=== PATIENT | female | born 1945 | race Caucasian/White ===

== ENCOUNTER 2017-09-20 06:39 | Inpatient (IN) | payer MEDICARE, SELFPAY ==
[2017-09-20] VITALS (8 sets, daily range): BP systolic 121–143; BP diastolic 55–82; PULSE 82–102; RESP 16; TEMP 36.6–37.7; O2SAT 94–99; BMI 23.7; BMI 22.8
--- NOTE | 2017-09-20 07:00 | ED.VISSUMM ---
- ER Visit Summary Date of Service: 09/20/17 Chief Complaint: Right leg pain History of Present Illness: The patient is a 71 F with a couple days of swelling and redness and warmth and pain in her right leg. Started posteriorly. Is really not hurting when she rests, but is worse when she walks on it. No recent long travel or immobilization/hospitalization. No known injury to her right leg. Sore in her right groin, but no fevers or other systemic symptoms. Physical Examination: Lacy appearing erythema to the right lower extremity, patchy, borders are not well circumscribed. It is warm compared with contralateral side and non-erythematous areas, and tender to palpation. There is no subcutaneous emphysema. There is mild swelling. There is no pitting edema. There is no lymphangitis. She does have some tender inguinal lymphadenopathy that extends into the medial proximal thigh. There are no abnormal skin changes here. There are no palpable cords. She is neurovascularly intact distally. At the area where she states it started, there is a small wound with a scab, there is no discharge or palpable abscess anywhere. Test Results: White blood count 21 with a strong leftward shift. No bandemia. Acute kidney injury compared with 1 month ago and hyperglycemia at 376. Emergency Department Course and Treatment: Patient states she has no idea how she obtained the small wound that appears to be healing on the posterior right lower extremity, but she agrees that that is where everything started, so that in addition to her hyperglycemia is likely the reason for the infection. I do not think this is a DVT. She states her blood sugars have been running around 200, plus or minus. She states there is a lot of fluctuation in her blood sugars. She is compliant with her medication. She is nontoxic, and not septic, but her labs are concerning. Given IV Unasyn [address] Patterson, prefers admission at this time. Discussed with hospitalist. Disposition: Admit Impression: Right lower extremity cellulitis Acute kidney injury Hyperglycemia due to type 2 diabetes mellitus This note was generated with [employer] dictation software. It may contain incorrect words, spelling, and punctuation that were not noted in review of the chart prior to signing ED Disposition - Plan for ED Patient: Disposition: Acute Care Hospital [facility] Chief Complaint: Cellulitis Prescriptions: Cephalexin 500 mg PO 4X/DAY #40 cap
[2017-09-20 07:39] LABS: Anion Gap 17 (5-15); BUN 30 mg/dL (7-18); BUN/Creat Ratio 26.1 RATIO (10-20); Calcium,Total 9.3 mg/dL (8.5-10.1); Chloride 97 mmol/L (98-107); Creatinine, Serum 1.15 mg/dL (0.55-1.02); EST Glomerular Filtration Rate 49 mL/min (>60); Est Glom Filt Rate - Afr Amer 59 mL/min (>60); Estimated Creatinine Clearance 36.04 ml/min; Glucose 376 mg/dL (74-106); Potassium 3.5 mmol/L (3.5-5.1); Sodium Level 134 mmol/L (136-145)
[2017-09-20 07:41] LABS: Absolute Lymphocyte Count 0.55 X10^3/ul (0.83-4.51); Basophil# 0.01 X10^3/uL; Hematocrit 37.8 % (37-47); Hemoglobin 12.6 g/dl (12.0-15.0); Lymphocyte # 0.55 X10^3/ul (4.0); Lymphocyte % 2.6 % (19-41); Mean Corp Hgb Conc 33.3 g/gl (32-36); Mean Corpuscular Hgb 28.8 pg (27.0-32.0); Mean Corpuscular Volume 86.5 fL (81-99); Mean Platelet Vol. 10.9 fl (6.2-12.0); Monocyte# 1.63 X10^3/uL; Monocyte% 7.7 % (0-10); Neutrophil # 19.03 X10^3/uL (2.7-7.7); Neutrophil % 89.4 % (47-70); Platelet Count 229 K/mm3 (150-450); RBC Distribution Width CV 13.6 % (11.6-14.6); RBC Distribution Width SD 42.8 fl (35.1-43.9); Red Blood Count 4.37 M/mm3 (4.2-5.4); White Blood Count 21.3 K/mm3 (4.4-11.0)
[2017-09-20 07:43] LABS: Differential Indicated SCAN CRITERIA MET; POSITIVE COUNT NO; POSITIVE DIFFERENTIAL YES; POSITIVE MORPHOLOGY NO
[2017-09-20 08:28] LABS: Differential Comment SCANNED
--- NOTE | 2017-09-20 09:42 | HP.PCM_ITS ---
Problem List (1) Cellulitis of right leg Status: Acute (2) Diabetes mellitus type 2 in nonobese Status: Chronic (3) Dyslipidemia Status: Chronic (4) Diabetic neuropathy Status: Chronic (5) Hypertension Status: Chronic History of Present Illness Date of Admission: 09/20/17 Chief Complaint: Right leg pain and redness The patient is a 71 year old F with history of diabetes mellitus type 2 on multiple antidiabetic medications including long-acting insulin, Regular Insulin , Victoza, hypertension came to ER for right leg redness, pain and mild swelling consistent with right leg cellulitis for about 3 days. Patient denies fever, chills, sharp, vomiting headache or other systemic symptoms. It is started with a small lesion on the back of right leg, calf which she is grasped and now scabbed without skin opening/wound and then it spread to her whole right lower leg from knee to ankle. She denies any history of foot ulcer, osteomyelitis. She is on gabapentin possible diabetic neuropathy. [] In ED, she has leukocytosis with left shift, ESR 77 and MRSA negative. Glucose in BMP 376, A1c 8.7. Past Medical History Past Medical History (Chronic Problems): Chronic Problems Diabetes mellitus type 2 in nonobese (Chronic) Dyslipidemia (Chronic) Diabetic neuropathy (Chronic) Hypertension (Chronic) Allergies No Known Allergies Allergy (Verified 09/20/17 06:40) Home Medications: Ambulatory Orders Medication Instructions Recorded Amlodipine Besylate/Benazepril 1 tab PO BID 09/20/17 [Amlodipine-Benazepril 5-20 mg] Bisoprolol Fumarate/Hctz 1 tab PO BID 09/20/17 [Bisoprolol-Hctz 2.5-6.25 mg Tb] Empagliflozin [Jardiance] 25 mg PO DAILY 09/20/17 Folic Acid 0.4 mg PO DAILY@0800 09/20/17 Gabapentin [Neurontin] 600 mg PO QHS 09/20/17 Insulin Degludec [Tresiba 80 units SQ DAILY 09/20/17 Flextouch U-200] Insulin Regular, Human [Humulin R 75 unit SQ TIDCM 09/20/17 U-500 Kwikpen] Liraglutide [Victoza] 1.8 units SQ DAILY 09/20/17 Magnesium Oxide [Mag-Ox 400] 1 tab PO DAILY 09/20/17 Pioglitazone [Actos] 45 mg PO DAILY 09/20/17 Rosuvastatin Calcium 20 mg PO DAILY 09/20/17 Spironolactone [Aldactone] 50 mg PO DAILY 09/20/17 Smoking Status: Never smoker Review of Systems Constitutional: Denies: Chills, Fever, Weight Change HEENT: Denies: Head Aches, Sinus Congestion, Sinus Drainage Cardiovascular: Denies: Chest Pain, Palpitations Respiratory: Denies: Cough, Shortness of breath at rest, Sputum production Gastrointestinal: Denies: Abdominal Pain, Nausea, Vomiting Genitourinary: Denies: Dysuria Musculoskeletal: Denies: Joint Pain, Joint Tenderness Skin: Reports: Rash. Denies: Wounds Neurological: Denies: Numbness, Tingling, Focal weakness Psychiatric: Denies: Anxiety, Depression, Homicidal Ideations, Suicidal Ideations Hematologic/ Lymphatic: Denies: Easy Bruising, Easy Bleeding VTE Information - Inpt Only VTE Present on Admission: No VTE Mechan Device Prophylaxis: SCD's VTE Pharm Prophylaxis ordered?: Yes Patient Problems: Active and Suspected Problems Cellulitis of right leg (Acute) - Physical Exam General: Alert, Oriented x3, Cooperative HEENT: Atraumatic, PERRLA, EOMI, Normocephalic Oral: Dry Mucosa Neck: Supple, No JVD, Negative Carotid Bruits Lungs: Clear to auscultation, Normal air movement, No rhonchi, No wheeze Cardiovascular: Regular rate, Regular Rhythm, Normal S1, Normal S2, Murmur - Systolic murmur present over left lower sternal border Abdomen: Bowel Sounds Present, Soft, Non Tender, Non-Distended Extremities: Capillary Refill Less than 3 Seconds, Edema - Mild edema of right lower leg Skin: No breakdown, Rash Present - Maculopapular reddish rash present over right lower leg from right knee to ankle with a small scab, grayish in color at the right calf Musculoskeletal: No Tenderness to Palpation of Joints or Extremities Neurological: Cranial nerves II-XII grossly intact Psych/Mental Status: Normal Affect, Appropriate Vital Signs Temp Pulse Resp BP Pulse Ox 97.8 F 102 H 16 134/67 H 96 09/20/17 06:41 09/20/17 06:41 09/20/17 06:41 09/20/17 06:41 09/20/17 06:41 Oxygen Delivery Method Room Air Weight: 133 lb 13.129 oz Body Mass Index (BMI) 23.7 Laboratory Tests Past 24 Hrs 09/20/17 09/20/17 07:17 07:17 WBC 21.3 H RBC 4.37 Hgb 12.6 Hct 37.8 MCV 86.5 MCH 28.8 MCHC 33.3 RDW 13.6 RDW Differential 42.8 Plt Count 229 MPV 10.9 Immature Gran % (Auto) 0.300 Neut % (Auto) 89.4 H Lymph % (Auto) 2.6 L Winn % (Auto) 7.7 Eos % (Auto) 0.0 Baso % (Auto) 0.0 Absolute Neuts (auto) 19.0 H Absolute Lymphs (auto) 0.55 L Total Counted Not Reportable Differential Comment SCANNED Sodium 134 L Potassium 3.5 Chloride 97 L Carbon Dioxide 20.0 L Anion Gap 17 H BUN 30 H Creatinine 1.15 H Estim Creat Clear Calc 36.04 Est GFR (MDRD) Af Amer 59 L Est GFR (MDRD) Non-Af 49 L BUN/Creatinine Ratio 26.1 H Glucose 376 H Calcium 9.3 Assessment/Plan Active and Suspected Problems Cellulitis of right leg (Acute) The patient is a 71 year old F with history of diabetes mellitus type 2 on multiple antidiabetic medications including long-acting insulin, Regular Insulin , Victoza, hypertension came to ER for right leg redness, pain and mild swelling consistent with right leg cellulitis for about 3 days. Patient denies fever, chills, sharp, vomiting headache or other systemic symptoms. It is started with a small lesion on the back of right leg, calf which she is grasped and now scabbed without skin opening/wound and then it spread to her whole right lower leg from knee to ankle. She denies any history of foot ulcer, osteomyelitis. She is on gabapentin possible diabetic neuropathy. [] In ED, she has leukocytosis with left shift, ESR 77 and MRSA negative. Glucose in BMP 376, A1c 8.7. 1. SIRS 1/4 (leukocytosis) WITH Right lower leg cellulitis most probably from folliculitis/scratching, possible Streptococcus: Patient is being admitted to the regular floor. Started on IV Unasyn in the ER and he changed to cefazolin. MRSA nasal screen is negative. IV fluid normal saline. Blood culture is ordered. 2. Diabetes mellitus type 2 complicated with diabetic neuropathy with hyperglycemia, uncontrolled: As mentioned above her blood sugar is uncontrolled. Continue Accu-Chek before meals and at bedtime and cover with NovoLog sliding scale. She is on pressure about 80 units subcui daily and 75 units regular insulin 3 times daily. 3. Other comorbidities include dyslipidemia, hypertension and possible chronic leg edema: Her home medications including rosuvastatin, spironolactone, amlodipine, benazepril and HCTZ resumed. DVT prophylaxis: Moderate risk: On Lovenox 40 mg subcu daily and bilateral SCDs. This note was generated with [employer] dictation software. Every effort was made to ensure accuracy, however computerized public health policy analyst mistakes may persist. Code Visit Inpatient E&M: 20274 Init Hosp L3
--- NOTE | 2017-09-20 11:24 | VDLE_ITS ---
Reason For Study: LEG SWELLING RIGHT LEFT GSV is normal. GSV is normal. CFV is compressible, spontaneous, phasic, CFV is compressible, spontaneous, phasic, competent and demonstrates normal competent, and demonstrates normal augmentation. augmentation. FV is compressible, spontaneous, phasic, FV is compressible, spontaneous, phasic, competent and demonstrates normal competent and demonstrates normal augmentation. augmentation. POP V is compressible, spontaneous, phasic, POP V is compressible, spontaneous, phasic, competent and demonstrates normal competent and demonstrates normal augmentation. augmentation. T/P Trunk is compressible. T/P Trunk is compressible. PTV is compressible. PTV is compressible. RT PerV is compressible. LT PerV is compressible. Procedure Exam performed in department. A preliminary report was called and/or faxed to [facility] nurse. Interpretation Summary No evidence for acute deep venous thrombosis bilateral lower extremities with patent and compressible bilateral great saphenous veins. Ordering Physician: Robin Mcdowell Referring Physician: Godfrey Holley MD Performed By: Faby Hamm RVT
[2017-09-20 11:52] LABS: Erythrocyte Sedimentation Rate 77 mm/hr (0-30)
[2017-09-20] MEDS: 0.9% Normal Saline 1,000 ML 100 ML IV ×2 (12:01→23:54)
[2017-09-20 12:06] LABS: Bedside Glucose 223 mg/dL (70-110)
[2017-09-20 12:09] LABS: Hemoglobin A1c 8.7 % (4.2-6.3)
[2017-09-20] MEDS: Enoxaparin 30 MG/0.3 ML Syringe SC (12:31)
[2017-09-20] MEDS: Polyethylene Glycol 3350 17 GM PACKET PO (12:35)
[2017-09-20] MEDS: Spironolactone 50 MG Tablet PO (12:35)
[2017-09-20] MEDS: Acetaminophen 325 MG Tablet 650 MG PO (12:39)
[2017-09-20 13:17] LABS: M R Staph aureus DNA By PCR Negative (Negative); Probe Check PASS; Specimen Processing Control PASS; Staph aureus DNA By PCR NEGATIVE (Negative)
[2017-09-20] MEDS: Cefazolin 1 GM/50 ML BAG IV ×2 (14:45→22:21)
[2017-09-20 16:21] LABS: Bedside Glucose 305 mg/dL (70-110)
[2017-09-20] MEDS: Atorvastatin Calcium 40 MG Tablet PO (22:21)
[2017-09-20] MEDS: Gabapentin 300 MG Capsule PO (22:21)
[2017-09-20 22:25] LABS: Bedside Glucose 88 mg/dL (70-110)
[2017-09-21] VITALS (11 sets, daily range): BP systolic 120–146; BP diastolic 60–88; PULSE 74–92; RESP 16; TEMP 36.3–37.5; O2SAT 94–99
[2017-09-21 03:16] LABS: Bedside Glucose 95 mg/dL (70-110)
[2017-09-21] MEDS: Cefazolin 1 GM/50 ML BAG IV ×3 (06:17→21:45)
[2017-09-21] MEDS: oxyCODONE 5 MG Tablet PO ×2 (06:17→13:54)
[2017-09-21] MEDS: Enoxaparin 30 MG/0.3 ML Syringe SC (06:17)
[2017-09-21 06:19] LABS: Absolute Lymphocyte Count 1.15 X10^3/ul (0.83-4.51); Absolute Neutrophil Count 15.9 X10^3/uL (2.0-7.7); Basophil# 0.02 X10^3/uL; Basophil% 0.1 % (0-1); Eosinophil# 0.02 X10^3/uL; Eosinophils% 0.1 % (0-5); Hematocrit 33.9 % (37-47); Hemoglobin 11.4 g/dl (12.0-15.0); Lymphocyte # 1.15 X10^3/ul (4.0); Mean Corp Hgb Conc 33.6 g/gl (32-36); Mean Corpuscular Hgb 29.1 pg (27.0-32.0); Mean Corpuscular Volume 86.5 fL (81-99); Mean Platelet Vol. 10.8 fl (6.2-12.0); Monocyte# 1.77 X10^3/uL; Monocyte% 9.3 % (0-10); Neutrophil # 15.93 X10^3/uL (2.7-7.7); Neutrophil % 83.9 % (47-70); Platelet Count 255 K/mm3 (150-450); RBC Distribution Width CV 13.5 % (11.6-14.6); RBC Distribution Width SD 41.3 fl (35.1-43.9); Red Blood Count 3.92 M/mm3 (4.2-5.4)
[2017-09-21 06:28] LABS: Differential Indicated SCAN CRITERIA MET; POSITIVE COUNT NO; POSITIVE DIFFERENTIAL YES; POSITIVE MORPHOLOGY NO
[2017-09-21 06:33] LABS: Anion Gap 10 (5-15); BUN 28 mg/dL (7-18); BUN/Creat Ratio 45.5 RATIO (10-20); Calcium,Total 8.5 mg/dL (8.5-10.1); Chloride 104 mmol/L (98-107); Creatinine, Serum 0.62 mg/dL (0.55-1.02); EST Glomerular Filtration Rate 101 mL/min (>60); Est Glom Filt Rate - Afr Amer 122 mL/min (>60); Estimated Creatinine Clearance 41.45 ml/min; Glucose 111 mg/dL (74-106); Potassium 2.9 mmol/L (3.5-5.1); Sodium Level 138 mmol/L (136-145)
[2017-09-21 06:47] LABS: Differential Comment SCANNED
[2017-09-21] MEDS: Folic Acid 1 MG Tablet PO (08:54)
[2017-09-21] MEDS: HYDROCHLOROTHIAZIDE 12.5 MG TABLET 6.25 MG PO (08:54)
[2017-09-21] MEDS: Spironolactone 50 MG Tablet PO (08:54)
[2017-09-21] MEDS: Empagliflozin 25 MG Tablet PO (08:55)
[2017-09-21 08:56] LABS: Bedside Glucose 132 mg/dL (70-110)
[2017-09-21] MEDS: Polyethylene Glycol 3350 17 GM PACKET PO (08:56)
[2017-09-21] MEDS: amLODIPine 5 MG Tablet PO (08:56)
[2017-09-21] MEDS: Magnesium Oxide 400 MG Tablet PO (08:56)
[2017-09-21] MEDS: Bisoprolol Fumarate 5 MG Tablet 2.5 MG PO (08:56)
[2017-09-21] MEDS: Lisinopril 20 MG Tablet PO (08:57)
[2017-09-21] MEDS: 0.9% Normal Saline 1,000 ML 100 ML IV ×2 (10:16→21:07)
[2017-09-21 11:26] LABS: Bedside Glucose 91 mg/dL (70-110)
[2017-09-21 13:21] LABS: Magnesium 2.2 mg/dL (1.6-2.6); Potassium 3.5 mmol/L (3.5-5.1)
[2017-09-21] MEDS: Dextrose 50%-Water 25 GM/50 ML DISP.SYRIN IV (16:18)
[2017-09-21 16:31] LABS: Bedside Glucose 163 mg/dL (70-110)
[2017-09-21 16:57] LABS: Glucose 48 mg/dL (74-106)
--- NOTE | 2017-09-21 16:57 | PCM.PN.HOSP ---
Patient Problems: Active and Suspected Problems Cellulitis of right leg (Acute) Subjective: Patient has hypoglycemia with blood sugar dropped to 40 mg percent and D5 50%, 25 mL ordered. Blood sugar is 163 mg percent. Right lower leg swelling and pain has improved. Vitals/I&O's: Vital Signs Temp Pulse Resp BP Pulse Ox 97.5 F L 80 16 146/80 H 99 09/21/17 13:56 09/21/17 15:53 09/21/17 13:56 09/21/17 13:56 09/21/17 13:56 Oxygen Delivery Method Room Air Weight: 129 lb 3.054 oz Body Mass Index (BMI) 22.8 Intake and Output for Last 24 Hours 09/19/17 09/20/17 09/21/17 23:59 23:59 23:59 Intake Total 1523 / 1523 2247 / 2247 Output Total 1000 / 1000 1500 / 1500 Balance 523 / 523 747 / 747 General: Alert, Oriented x3, Cooperative HEENT: Atraumatic, PERRLA, EOMI, Normocephalic Neck: Supple, No JVD, Negative Carotid Bruits Lungs: Clear to auscultation, No rhonchi, No wheeze, No rales, Diminished Cardiovascular: Regular rate, Regular Rhythm, Normal S1, Normal S2, Murmur Abdomen: Bowel Sounds Present, Soft, Non Tender Extremities: No edema, Capillary Refill Less than 3 Seconds Skin: Rash Present - Maculopapular reddish rash present over right lower leg from right knee to ankle with a small scab, grayish in color at the right calf-improving Musculoskeletal: No Tenderness to Palpation of Joints or Extremities, Arthritic Changes Neurological: Cranial nerves II-XII grossly intact Psych/Mental Status: Normal Affect, Appropriate Microbiology Past 72 Hours 09/20/17 11:58 Wound - Leg, Right Gram Stain - Final 09/20/17 11:58 Wound - Leg, Right Wound Culture - Preliminary Streptococcus group A Laboratory Results 09/20/17 22:19: POC Glucose 88 09/21/17 03:09: POC Glucose 95 09/21/17 05:11: WBC 19.0 H, RBC 3.92 L, Hgb 11.4 L, Hct 33.9 L, MCV 86.5, MCH 29.1, MCHC 33.6, RDW 13.5, RDW Differential 41.3, Plt Count 255, MPV 10.8, Immature Gran % (Auto) 0.600, Neut % (Auto) 83.9 H, Lymph % (Auto) 6.0 L, Lewis % (Auto) 9.3, Eos % (Auto) 0.1, Baso % (Auto) 0.1, Absolute Neuts (auto) 15.9 H, Absolute Lymphs (auto) 1.15, Total Counted Not Reportable, Differential Comment SCANNED, Diff Path Review December foll 09/21/17 05:11: Sodium 138, Potassium 2.9 L, Chloride 104, Carbon Dioxide 24.0, Anion Gap 10, BUN 28 H, Creatinine 0.62, Estim Creat Clear Calc 41.45, Est GFR (MDRD) Af Amer 122, Est GFR (MDRD) Non-Af 101, BUN/Creatinine Ratio 45.5 H, Glucose 111 H, Calcium 8.5 09/21/17 07:36: POC Glucose 132 H 09/21/17 11:13: POC Glucose 91 09/21/17 13:00: Potassium 3.5, Magnesium 2.2 09/21/17 16:17: Glucose Pending 09/21/17 16:22: POC Glucose 163 H Current Medications Acetaminophen (Tylenol) 650 mg PO Q6H PRN PRN PRN Reason: Mild Pain (scale 0-3)/T>100.7 Last Admin: 09/20/17 12:39 Dose: 650 mg Al Hydroxide/Mg Hydroxide (Mylanta Ii) 30 ml PO Q6H PRN PRN PRN Reason: Gastric Burning Amlodipine Besylate (Norvasc) 5 mg PO DAILY [facility] Last Admin: 09/21/17 08:56 Dose: 5 mg Atorvastatin Calcium (Lipitor) 40 mg PO QHS [facility] Last Admin: 09/20/17 22:21 Dose: 40 mg Bisacodyl (Dulcolax) 10 mg RECTAL DAILY PRN PRN PRN Reason: Constipation Bisoprolol Fumarate (Zebeta) 2.5 mg PO DAILY [facility] Last Admin: 09/21/17 08:56 Dose: 2.5 mg Dextrose (D50w Syringe) 0 gm IV X1 PRN; Protocol PRN Reason: Hypoglycemia Last Admin: 09/21/17 16:18 Dose: 25 gm Docusate Sodium (Colace) 200 mg PO BID PRN PRN PRN Reason: Constipation Enoxaparin Sodium (Lovenox) 30 mg SC DAILY@0600 [facility] Last Admin: 09/21/17 06:17 Dose: 30 mg Folic Acid (Folic Acid) 1 mg PO DAILY@0800 [facility] Last Admin: 09/21/17 08:54 Dose: 1 mg Gabapentin (Neurontin) 300 mg PO QHS [facility] Last Admin: 09/20/17 22:21 Dose: 300 mg Glucagon () 1 mg IM .X1 PRN PRN Reason: Hypoglycemia Hydrochlorothiazide (Hydrochlorothiazide) 6.25 mg PO DAILY [facility] Last Admin: 09/21/17 08:54 Dose: 6.25 mg Sodium Chloride () 1,000 mls @ 100 mls/hr IV .Q10H [facility] Last Admin: 09/21/17 10:16 Dose: 100 mls/hr Cefazolin Sodium () 1 gm in 50 mls @ 100 mls/hr IV Q8 [facility] Last Admin: 09/21/17 13:47 Dose: 100 mls/hr Insulin Aspart (Novolog Flexpen (Bkc)) 0 units SC ACHS [facility] PRN Reason: Protocol Last Admin: 09/21/17 16:20 Dose: Not Given Insulin Aspart (Novolog Flexpen (Bkc)) 50 units SC TIDAC [facility] Insulin Detemir (Levemir (Bkc)) 25 units SC DAILY [facility] Lisinopril (Zestril) 20 mg PO DAILY [facility] Last Admin: 09/21/17 08:57 Dose: 20 mg Magnesium Oxide (Mag-Ox 400) 400 mg PO DAILY [facility] Last Admin: 09/21/17 08:56 Dose: 400 mg Morphine Sulfate (Morphine) 1 - 2 mg IV Q4H PRN PRN PRN Reason: SEVERE PAIN (6-10/10) Ondansetron HCl (Zofran) 4 mg IV Q8H PRN PRN PRN Reason: Nausea Oxycodone HCl (Oxyir) 5 mg PO Q4H PRN PRN PRN Reason: Moderate Pain (pain scale 4-5) Last Admin: 09/21/17 13:54 Dose: 5 mg Polyethylene Glycol (Miralax) 17 gm PO DAILY [facility] Last Admin: 09/21/17 08:56 Dose: 17 gm Sodium Chloride () 5 - 30 ml IV UD PRN PRN Reason: SALINE FLUSH Spironolactone (Aldactone) 50 mg PO DAILY [facility] Last Admin: 09/21/17 08:54 Dose: 50 mg Assessment/Plan Active and Suspected Problems Cellulitis of right leg (Acute) The patient is a 71 year old F with history of diabetes mellitus type 2 on multiple antidiabetic medications including long-acting insulin, Regular Insulin, Victoza, hypertension came to ER for right leg redness, pain and mild swelling consistent with right leg cellulitis for about 3 days. Patient denies fever, chills, sharp, vomiting headache or other systemic symptoms. It is started with a small lesion on the back of right leg, calf which she is grasped and now scabbed without skin opening/wound and then it spread to her whole right lower leg from knee to ankle. She denies any history of foot ulcer, osteomyelitis. She is on gabapentin possible diabetic neuropathy. [] In ED, she has leukocytosis with left shift, ESR 77 and MRSA negative. Glucose in BMP 376, A1c 8.7. 1. SIRS 1/4 (leukocytosis) WITH Right lower leg cellulitis most probably from folliculitis/scratching, possible Streptococcus: Patient is being admitted to the regular floor. Started on IV Unasyn in the ER and he changed to cefazolin. MRSA nasal screen is negative. IV fluid normal saline. Deep wound culture from his Shows a Streptococcus group A 2+. Blood culture is ordered and pending. 2. Diabetes mellitus type 2 complicated with diabetic neuropathy with poor glycemic control mainly due to noncompliance with hypoglycemia today: As mentioned above her blood sugar is uncontrolled. Her blood sugar dropped on her home dose of insulin regular. She was on Levemir about 80 units subcui daily and 75 units regular insulin 3 times daily. This is decreased to Levemir 25 units subcutaneous daily and NovoLog insulin 50 units subcu units 3 times daily with holding parameters if blood sugar is less than 130 mg percent. 3. Other comorbidities include dyslipidemia, hypertension and possible chronic leg edema: Her home medications including rosuvastatin, spironolactone, amlodipine, benazepril and HCTZ resumed. DVT prophylaxis: Moderate risk: On Lovenox 40 mg subcu daily and bilateral SCDs. This note was generated with [employer] dictation software. Every effort was made to ensure accuracy, however computerized steam generating powerplant mechanic mistakes may persist. Code Visit Inpatient E&M: 91929 Subs Hosp L3
--- NOTE | 2017-09-21 17:02 | PN_ITS ---
Patient Problems: Active and Suspected Problems Cellulitis of right leg (Acute) Subjective: Patient has hypoglycemia with blood sugar dropped to 40 mg percent and D5 50%, 25 mL ordered. Blood sugar is 163 mg percent. Right lower leg swelling and pain has improved. Vitals/I&O's: Vital Signs Temp Pulse Resp BP Pulse Ox 97.5 F L 80 16 146/80 H 99 09/21/17 13:56 09/21/17 15:53 09/21/17 13:56 09/21/17 13:56 09/21/17 13:56 Oxygen Delivery Method Room Air Weight: 129 lb 3.054 oz Body Mass Index (BMI) 22.8 Intake and Output for Last 24 Hours 09/19/17 09/20/17 09/21/17 23:59 23:59 23:59 Intake Total 1523 / 1523 2247 / 2247 Output Total 1000 / 1000 1500 / 1500 Balance 523 / 523 747 / 747 General: Alert, Oriented x3, Cooperative HEENT: Atraumatic, PERRLA, EOMI, Normocephalic Neck: Supple, No JVD, Negative Carotid Bruits Lungs: Clear to auscultation, No rhonchi, No wheeze, No rales, Diminished Cardiovascular: Regular rate, Regular Rhythm, Normal S1, Normal S2, Murmur Abdomen: Bowel Sounds Present, Soft, Non Tender Extremities: No edema, Capillary Refill Less than 3 Seconds Skin: Rash Present - Maculopapular reddish rash present over right lower leg from right knee to ankle with a small scab, grayish in color at the right calf- improving Musculoskeletal: No Tenderness to Palpation of Joints or Extremities, Arthritic Changes Neurological: Cranial nerves II-XII grossly intact Psych/Mental Status: Normal Affect, Appropriate Microbiology Past 72 Hours 09/20/17 11:58 Wound - Leg, Right Gram Stain - Final 09/20/17 11:58 Wound - Leg, Right Wound Culture - Preliminary Streptococcus group A Laboratory Results 09/20/17 22:19: POC Glucose 88 09/21/17 03:09: POC Glucose 95 09/21/17 05:11: WBC 19.0 H, RBC 3.92 L, Hgb 11.4 L, Hct 33.9 L, MCV 86.5, MCH 29.1, MCHC 33.6, RDW 13.5, RDW Differential 41.3, Plt Count 255, MPV 10.8, Immature Gran % (Auto) 0.600, Neut % (Auto) 83.9 H, Lymph % (Auto) 6.0 L, [place] % (Auto) 9.3, Eos % (Auto) 0.1, Baso % (Auto) 0.1, Absolute Neuts (auto) 15.9 H , Absolute Lymphs (auto) 1.15, Total Counted Not Reportable, Differential Comment SCANNED, Diff Path Review December [facility] 09/21/17 05:11: Sodium 138, Potassium 2.9 L, Chloride 104, Carbon Dioxide 24.0, Anion Gap 10, BUN 28 H, Creatinine 0.62, Estim Creat Clear Calc 41.45, Est GFR ( MDRD) Af Amer 122, Est GFR (MDRD) Non-Af 101, BUN/Creatinine Ratio 45.5 H, Glucose 111 H, Calcium 8.5 09/21/17 07:36: POC Glucose 132 H 09/21/17 11:13: POC Glucose 91 09/21/17 13:00: Potassium 3.5, Magnesium 2.2 09/21/17 16:17: Glucose Pending 09/21/17 16:22: POC Glucose 163 H Current Medications Acetaminophen (Tylenol) 650 mg PO Q6H PRN PRN PRN Reason: Mild Pain (scale 0-3)/T>100.7 Last Admin: 09/20/17 12:39 Dose: 650 mg Al Hydroxide/Mg Hydroxide (Mylanta Ii) 30 ml PO Q6H PRN PRN PRN Reason: Gastric Burning Amlodipine Besylate (Norvasc) 5 mg PO DAILY [facility] Last Admin: 09/21/17 08:56 Dose: 5 mg Atorvastatin Calcium (Lipitor) 40 mg PO QHS [facility] Last Admin: 09/20/17 22:21 Dose: 40 mg Bisacodyl (Dulcolax) 10 mg RECTAL DAILY PRN PRN PRN Reason: Constipation Bisoprolol Fumarate (Zebeta) 2.5 mg PO DAILY [facility] Last Admin: 09/21/17 08:56 Dose: 2.5 mg Dextrose (D50w Syringe) 0 gm IV X1 PRN; Protocol PRN Reason: Hypoglycemia Last Admin: 09/21/17 16:18 Dose: 25 gm Docusate Sodium (Colace) 200 mg PO BID PRN PRN PRN Reason: Constipation Enoxaparin Sodium (Lovenox) 30 mg SC DAILY@0600 [facility] Last Admin: 09/21/17 06:17 Dose: 30 mg Folic Acid (Folic Acid) 1 mg PO DAILY@0800 [facility] Last Admin: 09/21/17 08:54 Dose: 1 mg Gabapentin (Neurontin) 300 mg PO QHS [facility] Last Admin: 09/20/17 22:21 Dose: 300 mg Glucagon () 1 mg IM .X1 PRN PRN Reason: Hypoglycemia Hydrochlorothiazide (Hydrochlorothiazide) 6.25 mg PO DAILY [facility] Last Admin: 09/21/17 08:54 Dose: 6.25 mg Sodium Chloride () 1,000 mls @ 100 mls/hr IV .Q10H [facility] Last Admin: 09/21/17 10:16 Dose: 100 mls/hr Cefazolin Sodium () 1 gm in 50 mls @ 100 mls/hr IV Q8 [facility] Last Admin: 09/21/17 13:47 Dose: 100 mls/hr Insulin Aspart (Novolog Flexpen (Bkc)) 0 units SC ACHS [facility] PRN Reason: Protocol Last Admin: 09/21/17 16:20 Dose: Not Given Insulin Aspart (Novolog Flexpen (Bkc)) 50 units SC TIDAC [facility] Insulin Detemir (Levemir (Bkc)) 25 units SC DAILY [facility] Lisinopril (Zestril) 20 mg PO DAILY [facility] Last Admin: 09/21/17 08:57 Dose: 20 mg Magnesium Oxide (Mag-Ox 400) 400 mg PO DAILY [facility] Last Admin: 09/21/17 08:56 Dose: 400 mg Morphine Sulfate (Morphine) 1 - 2 mg IV Q4H PRN PRN PRN Reason: SEVERE PAIN (6-10/10) Ondansetron HCl (Zofran) 4 mg IV Q8H PRN PRN PRN Reason: Nausea Oxycodone HCl (Oxyir) 5 mg PO Q4H PRN PRN PRN Reason: Moderate Pain (pain scale 4-5) Last Admin: 09/21/17 13:54 Dose: 5 mg Polyethylene Glycol (Miralax) 17 gm PO DAILY [facility] Last Admin: 09/21/17 08:56 Dose: 17 gm Sodium Chloride () 5 - 30 ml IV UD PRN PRN Reason: SALINE FLUSH Spironolactone (Aldactone) 50 mg PO DAILY [facility] Last Admin: 09/21/17 08:54 Dose: 50 mg Assessment/Plan Active and Suspected Problems Cellulitis of right leg (Acute) The patient is a 71 year old F with history of diabetes mellitus type 2 on multiple antidiabetic medications including long-acting insulin, Regular Insulin , Victoza, hypertension came to ER for right leg redness, pain and mild swelling consistent with right leg cellulitis for about 3 days. Patient denies fever, chills, sharp, vomiting headache or other systemic symptoms. It is started with a small lesion on the back of right leg, calf which she is grasped and now scabbed without skin opening/wound and then it spread to her whole right lower leg from knee to ankle. She denies any history of foot ulcer, osteomyelitis. She is on gabapentin possible diabetic neuropathy. [] In ED, she has leukocytosis with left shift, ESR 77 and MRSA negative. Glucose in BMP 376, A1c 8.7. 1. SIRS 1/4 (leukocytosis) WITH Right lower leg cellulitis most probably from folliculitis/scratching, possible Streptococcus: Patient is being admitted to the regular floor. Started on IV Unasyn in the ER and he changed to cefazolin. MRSA nasal screen is negative. IV fluid normal saline. Deep wound culture from his Shows a Streptococcus group A 2+. Blood culture is ordered and pending. 2. Diabetes mellitus type 2 complicated with diabetic neuropathy with poor glycemic control mainly due to noncompliance with hypoglycemia today: As mentioned above her blood sugar is uncontrolled. Her blood sugar dropped on her home dose of insulin regular. She was on Levemir about 80 units subcui daily and 75 units regular insulin 3 times daily. This is decreased to Levemir 25 units subcutaneous daily and NovoLog insulin 50 units subcu units 3 times daily with holding parameters if blood sugar is less than 130 mg percent. 3. Other comorbidities include dyslipidemia, hypertension and possible chronic leg edema: Her home medications including rosuvastatin, spironolactone, amlodipine, benazepril and HCTZ resumed. DVT prophylaxis: Moderate risk: On Lovenox 40 mg subcu daily and bilateral SCDs. This note was generated with [employer] dictation software. Every effort was made to ensure accuracy, however computerized hardware design engineer mistakes may persist. Code Visit Inpatient E&M: 67133 Subs Hosp L3
[2017-09-21] MEDS: Gabapentin 300 MG Capsule PO (21:45)
[2017-09-21] MEDS: Atorvastatin Calcium 40 MG Tablet PO (21:45)
[2017-09-21 21:46] LABS: Bedside Glucose 45 mg/dL (70-110)
--- NOTE | 2017-09-21 21:49 | NURSING ---
Accucheck completed with results of 45 at this time. PT denies s/s of hypoglycemia at this time. PT alert and able to eat, OJ, crackers with peanut butter provided. Will continue to monitor patient blood sugar.
[2017-09-21 22:21] LABS: Bedside Glucose 87 mg/dL (70-110)
[2017-09-22] VITALS: PULSE 78
[2017-09-22 02:00] VITALS: BP 124/63; PULSE 84; RESP 16; TEMP 37.4; O2SAT 96
[2017-09-22 02:10] LABS: Bedside Glucose 96 mg/dL (70-110)
[2017-09-22 04:08] VITALS: PULSE 77
[2017-09-22] MEDS: Cefazolin 1 GM/50 ML BAG IV (05:50)
[2017-09-22] MEDS: Enoxaparin 30 MG/0.3 ML Syringe SC (05:50)
[2017-09-22] MEDS: 0.9% Normal Saline 1,000 ML 100 ML IV (05:50)
[2017-09-22 06:26] LABS: Anion Gap 8 (5-15); BUN 21 mg/dL (7-18); BUN/Creat Ratio 38.9 RATIO (10-20); Calcium,Total 8.2 mg/dL (8.5-10.1); Chloride 107 mmol/L (98-107); Creatinine, Serum 0.54 mg/dL (0.55-1.02); EST Glomerular Filtration Rate 117 mL/min (>60); Est Glom Filt Rate - Afr Amer 142 mL/min (>60); Estimated Creatinine Clearance 41.45 ml/min; Glucose 85 mg/dL (74-106); Potassium 3.3 mmol/L (3.5-5.1); Sodium Level 140 mmol/L (136-145)
[2017-09-22 06:30] LABS: Absolute Lymphocyte Count 1.38 X10^3/ul (0.83-4.51); Absolute Neutrophil Count 12.9 X10^3/uL (2.0-7.7); Basophil# 0.02 X10^3/uL; Basophil% 0.1 % (0-1); Eosinophil# 0.12 X10^3/uL; Eosinophils% 0.7 % (0-5); Hematocrit 33.9 % (37-47); Lymphocyte # 1.38 X10^3/ul (4.0); Lymphocyte % 8.5 % (19-41); Mean Corp Hgb Conc 32.4 g/gl (32-36); Mean Corpuscular Hgb 28.4 pg (27.0-32.0); Mean Corpuscular Volume 87.6 fL (81-99); Mean Platelet Vol. 10.4 fl (6.2-12.0); Monocyte# 1.61 X10^3/uL; Monocyte% 9.9 % (0-10); Neutrophil # 12.94 X10^3/uL (2.7-7.7); Neutrophil % 79.8 % (47-70); Platelet Count 262 K/mm3 (150-450); Red Blood Count 3.87 M/mm3 (4.2-5.4); White Blood Count 16.2 K/mm3 (4.4-11.0)
[2017-09-22 06:35] LABS: Differential Indicated SCAN CRITERIA MET; POSITIVE COUNT NO; POSITIVE DIFFERENTIAL YES; POSITIVE MORPHOLOGY NO
[2017-09-22 06:59] LABS: Differential Comment SCANNED
[2017-09-22 07:45] VITALS: BP 151/81; PULSE 86; RESP 18; TEMP 37.3; O2SAT 97
[2017-09-22] MEDS: Folic Acid 1 MG Tablet PO (07:48)
[2017-09-22] MEDS: HYDROCHLOROTHIAZIDE 12.5 MG TABLET 6.25 MG PO (07:48)
[2017-09-22] MEDS: Spironolactone 50 MG Tablet PO (07:48)
[2017-09-22] MEDS: Magnesium Oxide 400 MG Tablet PO (07:48)
[2017-09-22] MEDS: Polyethylene Glycol 3350 17 GM PACKET PO (07:49)
[2017-09-22] MEDS: amLODIPine 5 MG Tablet PO (07:49)
[2017-09-22] MEDS: Bisoprolol Fumarate 5 MG Tablet 2.5 MG PO (07:50)
[2017-09-22] MEDS: Lisinopril 20 MG Tablet PO (07:50)
[2017-09-22 08:09] VITALS: PULSE 78
[2017-09-22 10:33] LABS: Pathologist Review Reviewed
--- NOTE | 2017-09-22 11:15 | CASEMGMT ---
KATIANA FUNEZ Face to Face with patient for initial transition planning/care coordination assessment. RN CM introduced self and role at [facility]. Patient sitting up in bed, alert and oriented. Patient willing to participate in assessment and is able to answer all questions appropriately. Care providers, pharmacy, and demographics verified. See link attached. Patient wishes to discharge home, denies need for home health at this time. Patinet states that she had support at home and lives with son. Patient states she has no further needs or concerns at this time. CM to follow for discharge planning needs that may arise. Disposition Plan: Patient to discharge home with family support and follow-up plans in place.
[2017-09-22 11:31] LABS: Bedside Glucose 201 mg/dL (70-110)
--- NOTE | 2017-09-22 11:31 | PCM.PN.HOSP ---
Patient Problems: Active and Suspected Problems Cellulitis of right leg (Acute) Subjective: Erythema on leg doing much better today. Patient did have a hypoglycemic episode yesterday. Patient otherwise feeling well. Patient states that she at home, just does not generally follow a diabetic diet and usually has indiscretions. Whereas here, patient is on a strict diabetic diet. Vitals/I&O's: Vital Signs Temp Pulse Resp BP Pulse Ox 37.3 C 78 18 151/81 H 97 09/22/17 07:45 09/22/17 08:09 09/22/17 07:45 09/22/17 07:45 09/22/17 07:45 Oxygen Delivery Method Room Air Weight: 58.6 kg Body Mass Index (BMI) 22.8 Intake and Output for Last 24 Hours 09/20/17 09/21/17 09/22/17 23:59 23:59 23:59 Intake Total 1523 / 1523 3525 / 3525 1231 / 1231 Output Total 1000 / 1000 1900 / 1900 1000 / 1000 Balance 523 / 523 1625 / 1625 231 / 231 General: Alert, Cooperative, No apparent distress HEENT: Atraumatic, Normocephalic Extremities: - - Trace right lower extremity edema Skin: - - She erythema on the distal lower extremity. Well within the margins of the lines of demarcation. Musculoskeletal: No Tenderness to Palpation of Joints or Extremities, No Muscle Wasting Microbiology Past 72 Hours 09/20/17 11:58 Wound - Leg, Right Gram Stain - Final 09/20/17 11:58 Wound - Leg, Right Wound Culture - Final Streptococcus group A 09/20/17 11:58 Wound - Leg, Right Anaerobic Culture - Final No anaerobic bacteria isolated. Laboratory Results 09/21/17 05:11: Diff Path Review Reviewed 09/21/17 13:00: Potassium 3.5, Magnesium 2.2 09/21/17 16:17: Glucose 48 L 09/21/17 16:22: POC Glucose 163 H 09/21/17 21:38: POC Glucose 45 L 09/21/17 22:14: POC Glucose 87 09/22/17 02:04: POC Glucose 96 09/22/17 05:12: WBC 16.2 H, RBC 3.87 L, Hgb 11.0 L, Hct 33.9 L, MCV 87.6, MCH 28.4, MCHC 32.4, RDW 14.0, RDW Differential 45.0 H, Plt Count 262, MPV 10.4, Immature Gran % (Auto) 1.000 H, Neut % (Auto) 79.8 H, Lymph % (Auto) 8.5 L, [place] % (Auto) 9.9, Eos % (Auto) 0.7, Baso % (Auto) 0.1, Absolute Neuts (auto) 12.9 H, Absolute Lymphs (auto) 1.38, Total Counted Not Reportable, Differential Comment SCANNED, Diff Path Review December [facility] 09/22/17 05:12: Sodium 140, Potassium 3.3 L, Chloride 107, Carbon Dioxide 25.0, Anion Gap 8, BUN 21 H, Creatinine 0.54 L, Estim Creat Clear Calc 41.45, Est GFR (MDRD) Af Amer 142, Est GFR (MDRD) Non-Af 117, BUN/Creatinine Ratio 38.9 H, Glucose 85, Calcium 8.2 L 09/22/17 11:24: POC Glucose Pending Current Medications Acetaminophen (Tylenol) 650 mg PO Q6H PRN PRN PRN Reason: Mild Pain (scale 0-3)/T>100.7 Last Admin: 09/20/17 12:39 Dose: 650 mg Al Hydroxide/Mg Hydroxide (Mylanta Ii) 30 ml PO Q6H PRN PRN PRN Reason: Gastric Burning Amlodipine Besylate (Norvasc) 5 mg PO DAILY [facility] Last Admin: 09/22/17 07:49 Dose: 5 mg Atorvastatin Calcium (Lipitor) 40 mg PO QHS [facility] Last Admin: 09/21/17 21:45 Dose: 40 mg Bisacodyl (Dulcolax) 10 mg RECTAL DAILY PRN PRN PRN Reason: Constipation Bisoprolol Fumarate (Zebeta) 2.5 mg PO DAILY [facility] Last Admin: 09/22/17 07:50 Dose: 2.5 mg Dextrose (D50w Syringe) 0 gm IV X1 PRN; Protocol PRN Reason: Hypoglycemia Last Admin: 09/21/17 16:18 Dose: 25 gm Docusate Sodium (Colace) 200 mg PO BID PRN PRN PRN Reason: Constipation Enoxaparin Sodium (Lovenox) 30 mg SC DAILY@0600 [facility] Last Admin: 09/22/17 05:50 Dose: 30 mg Folic Acid (Folic Acid) 1 mg PO DAILY@0800 [facility] Last Admin: 09/22/17 07:48 Dose: 1 mg Gabapentin (Neurontin) 300 mg PO QHS [facility] Last Admin: 09/21/17 21:45 Dose: 300 mg Glucagon () 1 mg IM .X1 PRN PRN Reason: Hypoglycemia Hydrochlorothiazide (Hydrochlorothiazide) 6.25 mg PO DAILY [facility] Last Admin: 09/22/17 07:48 Dose: 6.25 mg Sodium Chloride () 1,000 mls @ 100 mls/hr IV .Q10H [facility] Last Admin: 09/22/17 05:50 Dose: 100 mls/hr Cefazolin Sodium () 1 gm in 50 mls @ 100 mls/hr IV Q8 [facility] Last Admin: 09/22/17 05:50 Dose: 100 mls/hr Insulin Aspart (Novolog Flexpen (Bk)) 0 units SC ACHS [facility] PRN Reason: Protocol Last Admin: 09/22/17 07:47 Dose: Not Given Insulin Detemir (Levemir (Bkc)) 25 units SC DAILY [facility] Lisinopril (Zestril) 20 mg PO DAILY [facility] Last Admin: 09/22/17 07:50 Dose: 20 mg Magnesium Oxide (Mag-Ox 400) 400 mg PO DAILY [facility] Last Admin: 09/22/17 07:48 Dose: 400 mg Morphine Sulfate (Morphine) 1 - 2 mg IV Q4H PRN PRN PRN Reason: SEVERE PAIN (6-10/10) Ondansetron HCl (Zofran) 4 mg IV Q8H PRN PRN PRN Reason: Nausea Oxycodone HCl (Oxyir) 5 mg PO Q4H PRN PRN PRN Reason: Moderate Pain (pain scale 4-5) Last Admin: 09/21/17 13:54 Dose: 5 mg Polyethylene Glycol (Miralax) 17 gm PO DAILY [facility] Last Admin: 09/22/17 07:49 Dose: 17 gm Sodium Chloride () 5 - 30 ml IV UD PRN PRN Reason: SALINE FLUSH Spironolactone (Aldactone) 50 mg PO DAILY [facility] Last Admin: 09/22/17 07:48 Dose: 50 mg Assessment/Plan Active and Suspected Problems Cellulitis of right leg (Acute) 1. Right lower extremity cellulitis Positive for group A strep Treat w keflex 500 QID for 8 more days 2. hypoglycemia Likely due to more strict diet here than the patient takes at home. Patient states that she normally takes her insulin regularly but does not follow a strict diet at home. Recommend the patient continue with her home insulin and regular diet at home at this time.
--- NOTE | 2017-09-22 11:35 | PN_ITS ---
Patient Problems: Active and Suspected Problems Cellulitis of right leg (Acute) Subjective: Erythema on leg doing much better today. Patient did have a hypoglycemic episode yesterday. Patient otherwise feeling well. Patient states that she at home, just does not generally follow a diabetic diet and usually has indiscretions. Whereas here, patient is on a strict diabetic diet. Vitals/I&O's: Vital Signs Temp Pulse Resp BP Pulse Ox 37.3 C 78 18 151/81 H 97 09/22/17 07:45 09/22/17 08:09 09/22/17 07:45 09/22/17 07:45 09/22/17 07:45 Oxygen Delivery Method Room Air Weight: 58.6 kg Body Mass Index (BMI) 22.8 Intake and Output for Last 24 Hours 09/20/17 09/21/17 09/22/17 23:59 23:59 23:59 Intake Total 1523 / 1523 3525 / 3525 1231 / 1231 Output Total 1000 / 1000 1900 / 1900 1000 / 1000 Balance 523 / 523 1625 / 1625 231 / 231 General: Alert, Cooperative, No apparent distress HEENT: Atraumatic, Normocephalic Extremities: - - Trace right lower extremity edema Skin: - - She erythema on the distal lower extremity. Well within the margins of the lines of demarcation. Musculoskeletal: No Tenderness to Palpation of Joints or Extremities, No Muscle Wasting Microbiology Past 72 Hours 09/20/17 11:58 Wound - Leg, Right Gram Stain - Final 09/20/17 11:58 Wound - Leg, Right Wound Culture - Final Streptococcus group A 09/20/17 11:58 Wound - Leg, Right Anaerobic Culture - Final No anaerobic bacteria isolated. Laboratory Results 09/21/17 05:11: Diff Path Review Reviewed 09/21/17 13:00: Potassium 3.5, Magnesium 2.2 09/21/17 16:17: Glucose 48 L 09/21/17 16:22: POC Glucose 163 H 09/21/17 21:38: POC Glucose 45 L 09/21/17 22:14: POC Glucose 87 09/22/17 02:04: POC Glucose 96 09/22/17 05:12: WBC 16.2 H, RBC 3.87 L, Hgb 11.0 L, Hct 33.9 L, MCV 87.6, MCH 28.4, MCHC 32.4, RDW 14.0, RDW Differential 45.0 H, Plt Count 262, MPV 10.4, Immature Gran % (Auto) 1.000 H, Neut % (Auto) 79.8 H, Lymph % (Auto) 8.5 L, [place] % (Auto) 9.9, Eos % (Auto) 0.7, Baso % (Auto) 0.1, Absolute Neuts (auto) 12.9 H, Absolute Lymphs (auto) 1.38, Total Counted Not Reportable, Differential Comment SCANNED, Diff Path Review December [facility] 09/22/17 05:12: Sodium 140, Potassium 3.3 L, Chloride 107, Carbon Dioxide 25.0, Anion Gap 8, BUN 21 H, Creatinine 0.54 L, Estim Creat Clear Calc 41.45, Est GFR (MDRD) Af Amer 142, Est GFR (MDRD) Non-Af 117, BUN/Creatinine Ratio 38.9 H, Glucose 85, Calcium 8.2 L 09/22/17 11:24: POC Glucose Pending Current Medications Acetaminophen (Tylenol) 650 mg PO Q6H PRN PRN PRN Reason: Mild Pain (scale 0-3)/T>100.7 Last Admin: 09/20/17 12:39 Dose: 650 mg Al Hydroxide/Mg Hydroxide (Mylanta Ii) 30 ml PO Q6H PRN PRN PRN Reason: Gastric Burning Amlodipine Besylate (Norvasc) 5 mg PO DAILY [facility] Last Admin: 09/22/17 07:49 Dose: 5 mg Atorvastatin Calcium (Lipitor) 40 mg PO QHS [facility] Last Admin: 09/21/17 21:45 Dose: 40 mg Bisacodyl (Dulcolax) 10 mg RECTAL DAILY PRN PRN PRN Reason: Constipation Bisoprolol Fumarate (Zebeta) 2.5 mg PO DAILY [facility] Last Admin: 09/22/17 07:50 Dose: 2.5 mg Dextrose (D50w Syringe) 0 gm IV X1 PRN; Protocol PRN Reason: Hypoglycemia Last Admin: 09/21/17 16:18 Dose: 25 gm Docusate Sodium (Colace) 200 mg PO BID PRN PRN PRN Reason: Constipation Enoxaparin Sodium (Lovenox) 30 mg SC DAILY@0600 [facility] Last Admin: 09/22/17 05:50 Dose: 30 mg Folic Acid (Folic Acid) 1 mg PO DAILY@0800 [facility] Last Admin: 09/22/17 07:48 Dose: 1 mg Gabapentin (Neurontin) 300 mg PO QHS [facility] Last Admin: 09/21/17 21:45 Dose: 300 mg Glucagon () 1 mg IM .X1 PRN PRN Reason: Hypoglycemia Hydrochlorothiazide (Hydrochlorothiazide) 6.25 mg PO DAILY [facility] Last Admin: 09/22/17 07:48 Dose: 6.25 mg Sodium Chloride () 1,000 mls @ 100 mls/hr IV .Q10H [facility] Last Admin: 09/22/17 05:50 Dose: 100 mls/hr Cefazolin Sodium () 1 gm in 50 mls @ 100 mls/hr IV Q8 [facility] Last Admin: 09/22/17 05:50 Dose: 100 mls/hr Insulin Aspart (Novolog Flexpen (Bk)) 0 units SC ACHS [facility] PRN Reason: Protocol Last Admin: 09/22/17 07:47 Dose: Not Given Insulin Detemir (Levemir (Bkc)) 25 units SC DAILY [facility] Lisinopril (Zestril) 20 mg PO DAILY [facility] Last Admin: 09/22/17 07:50 Dose: 20 mg Magnesium Oxide (Mag-Ox 400) 400 mg PO DAILY [facility] Last Admin: 09/22/17 07:48 Dose: 400 mg Morphine Sulfate (Morphine) 1 - 2 mg IV Q4H PRN PRN PRN Reason: SEVERE PAIN (6-10/10) Ondansetron HCl (Zofran) 4 mg IV Q8H PRN PRN PRN Reason: Nausea Oxycodone HCl (Oxyir) 5 mg PO Q4H PRN PRN PRN Reason: Moderate Pain (pain scale 4-5) Last Admin: 09/21/17 13:54 Dose: 5 mg Polyethylene Glycol (Miralax) 17 gm PO DAILY [facility] Last Admin: 09/22/17 07:49 Dose: 17 gm Sodium Chloride () 5 - 30 ml IV UD PRN PRN Reason: SALINE FLUSH Spironolactone (Aldactone) 50 mg PO DAILY [facility] Last Admin: 09/22/17 07:48 Dose: 50 mg Assessment/Plan Active and Suspected Problems Cellulitis of right leg (Acute) 1. Right lower extremity cellulitis * Positive for group A strep Treat w keflex 500 QID for 8 more days 2. hypoglycemia * Likely due to more strict diet here than the patient takes at home. Patient states that she normally takes her insulin regularly but does not follow a strict diet at home. Recommend the patient continue with her home insulin and regular diet at home at this time.
--- NOTE | 2017-09-22 11:36 | NURSING ---
venous doppler being completed on rle
--- NOTE | 2017-09-22 11:38 | PCM.DC ---
- Discharge Diagnoses Current Active Problems: Current Active and Chronic Problems Cellulitis of right leg (Acute) Diabetes mellitus type 2 in nonobese (Chronic) Dyslipidemia (Chronic) Diabetic neuropathy (Chronic) Hypertension (Chronic) You will use the following diet at home:: No restrictions Your food should be the consistency of: Regular Your liquids should be the consistency of: Regular/Thin Discharge Activity: Return to Normal Activity Call your doctor if your incision/area has: Increased Pain/ Swelling, Increased Redness Call your doctor if you observe: Fever of 101 or Higher Allergies/Adverse Reactions: Allergies No Known Allergies Allergy (Verified 09/20/17 06:40) Medications to take at Discharge Amlodipine Besylate/Benazepril [Amlodipine-Benazepril 5-20 mg] 1 tab PO BID 09/20/17 Bisoprolol Fumarate/Hctz [Bisoprolol-Hctz 2.5-6.25 mg Tb] 1 tab PO BID 09/20/17 Empagliflozin [Jardiance] 25 mg PO DAILY 09/20/17 Folic Acid 0.4 mg PO DAILY@0800 09/20/17 Gabapentin [Neurontin] 600 mg PO QHS 09/20/17 Insulin Degludec [Tresiba Flextouch U-200] 80 units SQ DAILY 09/20/17 Insulin Regular, Human [Humulin R U-500 Kwikpen] 75 unit SQ TIDCM 09/20/17 Liraglutide [Victoza] 1.8 units SQ DAILY 09/20/17 Magnesium Oxide [Mag-Ox 400] 1 tab PO DAILY 09/20/17 Pioglitazone [Actos] 45 mg PO DAILY 09/20/17 Rosuvastatin Calcium 20 mg PO DAILY 09/20/17 Spironolactone [Aldactone] 50 mg PO DAILY 09/20/17 Acetaminophen [Tylenol Tablet] 500 mg PO Q4H PRN tablet 09/22/17 Cephalexin [Keflex] 500 mg PO Q6 #48 cap 09/22/17 The following prescriptions were given: Cephalexin [Keflex] 500 mg PO Q6 #48 cap Primary Care Physician: Godfrey Holley MD [Primary Care Provider] - Within 2 Weeks Proposed Discharge Date: 09/22/17
--- NOTE | 2017-09-22 11:39 | PCM.DC.SUM ---
Discharge Date and Diagnosis - Problem List Patient Problems: Active and Suspected Problems Cellulitis of right leg (Acute) Date of Admission: 09/20/17 Date of Discharge: 09/22/17 - Primary Discharge Diagnosis Active and Suspected Problems Cellulitis of right leg (Acute) - Secondary Discharge Diagnosis Chronic Problems Diabetes mellitus type 2 in nonobese (Chronic) Dyslipidemia (Chronic) Diabetic neuropathy (Chronic) Hypertension (Chronic) Hospital Course and Treatment Operations: None Procedures: None Summary of Care Provided: The patient is a 71 year old F Jose Armando with cellulitis to the right lower extremity. Patient had pain and swelling for about 3 days prior to admission. Patient had a wound on the backside of her right calf that may been the nidus of the infection. Patient's area was marked off and patient was started on cefazolin. Patient did have wound culture positive for group A streptococcus. Patient's erythema has greatly improved. Patient still does have some right lower extremity edema but much improved per the patient. Patient will be discharged with Keflex 504 times daily for 8 more days to complete a 10 day course of antibiotics. Patient's course was comp gated due to hypoglycemia. Her blood sugar of 48 on the . After discussion with the patient is felt that this is actually due to the patient's diet. Patient states that she does not receive follow a restricted diet at home and is pretty liberal on what she eats. And she states that she does take her insulin as she is directed. I feel that her hypoglycemic event may been treated old to being on more strict diet in the hospital setting then she is at home and I have advised patient to resume her previous diet that she was on and also her previously scheduled regimen of insulin and hypoglycemic medications. [] Discharge Diet: No Restrictions Discharge Activity: Return to Normal Activity Call your doctor if your incision/area has: Increased Pain/ Swelling, Increased Redness Call your doctor if you observe: Fever of 101 or Higher Home Medications: Medications to take at Discharge Amlodipine Besylate/Benazepril [Amlodipine-Benazepril 5-20 mg] 1 tab PO BID 09/20/17 Bisoprolol Fumarate/Hctz [Bisoprolol-Hctz 2.5-6.25 mg Tb] 1 tab PO BID 09/20/17 Empagliflozin [Jardiance] 25 mg PO DAILY 09/20/17 Folic Acid 0.4 mg PO DAILY@0800 09/20/17 Gabapentin [Neurontin] 600 mg PO QHS 09/20/17 Insulin Degludec [Tresiba Flextouch U-200] 80 units SQ DAILY 09/20/17 Insulin Regular, Human [Humulin R U-500 Kwikpen] 75 unit SQ TIDCM 09/20/17 Liraglutide [Victoza] 1.8 units SQ DAILY 09/20/17 Magnesium Oxide [Mag-Ox 400] 1 tab PO DAILY 09/20/17 Pioglitazone [Actos] 45 mg PO DAILY 09/20/17 Rosuvastatin Calcium 20 mg PO DAILY 09/20/17 Spironolactone [Aldactone] 50 mg PO DAILY 09/20/17 Acetaminophen [Tylenol Tablet] 500 mg PO Q4H PRN tablet 09/22/17 Cephalexin [Keflex] 500 mg PO Q6 #48 cap 09/22/17 Following Prescrptions Were Given to Patient: Cephalexin [Keflex] 500 mg PO Q6 #48 cap Primary Care Physician: Godfrey Holley MD [Primary Care Provider] - Within 2 Weeks Disposition: Home Minutes spent on discharge:: 32 Patient Condition:: Good Meaningful Use Info Meaningful Use Diagnoses (Choose all that apply): None applicable Code Visit Inpatient E&M: 96507 Disch Hosp
[2017-09-23 14:40] LABS: Pathologist Review Reviewed
== END 2017-09-22 12:41 | disposition home or self-care (01) | DRG 603 ==
LOC: ED 09:38 → MS3 10:23
PROVIDERS: Admitting Provider Internal Medicine; Emergency Provider Emergency Medicine; Family Provider Family Medicine; PCP Family Medicine
DX: L03.115 Cellulitis of right lower limb (principal); E11.40 Type 2 diabetes mellitus with diabetic neuropathy, unspecified; E11.649 Type 2 diabetes mellitus with hypoglycemia without coma; E11.65 Type 2 diabetes mellitus with hyperglycemia; Z79.4 Long term (current) use of insulin; E78.5 Hyperlipidemia, unspecified; I10 Essential (primary) hypertension; B95.0 Streptococcus, group A, as the cause of diseases classified elsewhere
CPT/HCPCS: 36415; 80048; 82947; 82962; 83036; 83735; 84132; 85025; 85652; 87040; 87070; 87075; 87077; 87205; 87640; 93970; 97116; 97161; 97166; 99282; J7030; J7040; J7050; A4216; G8978; G8979; G8987; G8988; J0295

== ENCOUNTER → 2017-12-25 10:23 | Outpatient (CLI) | payer MEDICARE, SELFPAY ==
[2017-12-25 12:38] LABS: Hemoglobin A1c 9.6 % (4.2-6.3)
[2017-12-25 12:41] LABS: AST(SGOT) 16 U/L (15-37); Alanine Aminotransfer ALT/SGPT 18 U/L (13-56); Albumin, Serum 4.1 g/dL (3.2-5.0); Alkaline Phosphatase 116 U/L (45-117); Anion Gap 7 (5-15); BUN 18 mg/dL (7-18); Calcium,Total 9.4 mg/dL (8.5-10.1); Chloride 103 mmol/L (98-107); Creatinine, Serum 0.82 mg/dL (0.55-1.02); EST Glomerular Filtration Rate 72 mL/min (>60); Est Glom Filt Rate - Afr Amer 88 mL/min (>60); Globulin 4.2 g/dL (2.2-4.2); Glucose 263 mg/dL (74-106); Magnesium 2.1 mg/dL (1.6-2.6); Potassium 3.8 mmol/L (3.5-5.1); Protein, Total 8.3 g/dL (6.4-8.2); Sodium Level 136 mmol/L (136-145); Thyroid Stim Hormone (TSH) 1.31 uIU/mL (0.358-3.74)
[2017-12-25 13:00] LABS: Microalbumin,Random Urine 11.5 mg/L (NO RANGE EST.); Microalbumin:Creatinine Ratio 77.2 mg/g CRE (<30 mg/g CRE)
[2017-12-25 13:02] LABS: Absolute Lymphocyte Count 1.97 X10^3/ul (0.83-4.51); Absolute Neutrophil Count 5.7 X10^3/uL (2.0-7.7); Basophil# 0.03 X10^3/uL; Basophil% 0.4 % (0-1); Eosinophil# 0.15 X10^3/uL; Eosinophils% 1.8 % (0-5); Hematocrit 42.7 % (37-47); Hemoglobin 14.1 g/dl (12.0-15.0); Lymphocyte # 1.97 X10^3/ul (4.0); Lymphocyte % 23.3 % (19-41); Mean Corpuscular Hgb 27.8 pg (27.0-32.0); Mean Corpuscular Volume 84.1 fL (81-99); Monocyte# 0.61 X10^3/uL; Monocyte% 7.2 % (0-10); Neutrophil # 5.69 X10^3/uL (2.7-7.7); Neutrophil % 67.1 % (47-70); Platelet Count 268 K/mm3 (150-450); RBC Distribution Width CV 13.5 % (11.6-14.6); RBC Distribution Width SD 41.2 fl (35.1-43.9); Red Blood Count 5.08 M/mm3 (4.2-5.4); White Blood Count 8.5 K/mm3 (4.4-11.0)
[2017-12-25 13:03] LABS: POSITIVE COUNT NO; POSITIVE DIFFERENTIAL NO; POSITIVE MORPHOLOGY NO
== END ==
PROVIDERS: Family Provider Family Medicine; PCP Family Medicine; Visit Provider Family Medicine
DX: E11.29 Type 2 diabetes mellitus with other diabetic kidney complication (principal); E11.65 Type 2 diabetes mellitus with hyperglycemia
CPT/HCPCS: 36415; 80053; 82043; 82306; 82570; 83036; 83735; 84443; 85025

== ENCOUNTER → 2018-04-20 09:41 | Outpatient (CLI) | payer MEDICARE, SELFPAY ==
[2018-04-20 12:19] LABS: Microalbumin,Random Urine 11.9 mg/L (NO RANGE EST.); Microalbumin:Creatinine Ratio 63.3 mg/g CRE (<30 mg/g CRE)
[2018-04-20 12:34] LABS: Hemoglobin A1c 8.2 % (4.2-6.3)
[2018-04-20 12:44] LABS: AST(SGOT) 18 U/L (15-37); Alanine Aminotransfer ALT/SGPT 23 U/L (13-56); Alkaline Phosphatase 128 U/L (45-117); Anion Gap 11 (5-15); BUN 19 mg/dL (7-18); BUN/Creat Ratio 19.8 RATIO (10-20); Calcium,Total 9.7 mg/dL (8.5-10.1); Chloride 102 mmol/L (98-107); Cholesterol 180 mg/dL (200); Creatinine, Serum 0.96 mg/dL (0.55-1.02); EST Glomerular Filtration Rate 61 mL/min (>60); Est Glom Filt Rate - Afr Amer 73 mL/min (>60); Globulin 4.2 g/dL (2.2-4.2); Glucose 252 mg/dL (74-106); High Density Lipoprotein 44 mg/dL; Potassium 3.7 mmol/L (3.5-5.1); Protein, Total 8.2 g/dL (6.4-8.2); Sodium Level 139 mmol/L (136-145); Thyroid Stim Hormone (TSH) 1.22 uIU/mL (0.358-3.74); Triglycerides 307 mg/dL; Very Low Density Lipoprotein 61 mg/dL (5-40)
== END ==
PROVIDERS: Family Provider Family Medicine; PCP Family Medicine; Visit Provider Internal Medicine Endocrinology, Diabetes & Metabolism
DX: E11.65 Type 2 diabetes mellitus with hyperglycemia (principal)
CPT/HCPCS: 36415; 80053; 80061; 82043; 82570; 83036; 84443

== ENCOUNTER → 2018-06-29 09:27 | Outpatient (CLI) | payer MEDICARE, SELFPAY ==
[2017-09-20 10:49] VITALS: BMI 22.8
[2018-06-29 12:10] LABS: Absolute Lymphocyte Count 1.96 X10^3/ul (0.83-4.51); Absolute Neutrophil Count 4.9 X10^3/uL (2.0-7.7); Basophil# 0.03 X10^3/uL; Basophil% 0.4 % (0-1); Eosinophil# 0.17 X10^3/uL; Eosinophils% 2.2 % (0-5); Hematocrit 43.7 % (37-47); Hemoglobin 14.4 g/dl (12.0-15.0); Lymphocyte # 1.96 X10^3/ul (4.0); Lymphocyte % 25.6 % (19-41); Mean Corpuscular Hgb 28.7 pg (27.0-32.0); Mean Corpuscular Volume 87.2 fL (81-99); Mean Platelet Vol. 10.7 fl (6.2-12.0); Monocyte# 0.59 X10^3/uL; Monocyte% 7.7 % (0-10); Neutrophil # 4.91 X10^3/uL (2.7-7.7); Platelet Count 283 K/mm3 (150-450); RBC Distribution Width CV 13.6 % (11.6-14.6); RBC Distribution Width SD 43.1 fl (35.1-43.9); Red Blood Count 5.01 M/mm3 (4.2-5.4); White Blood Count 7.7 K/mm3 (4.4-11.0)
[2018-06-29 12:19] LABS: POSITIVE COUNT NO; POSITIVE DIFFERENTIAL NO; POSITIVE MORPHOLOGY NO
[2018-06-29 12:25] LABS: Microalbumin,Random Urine 15.2 mg/L (NO RANGE EST.); Microalbumin:Creatinine Ratio 63.3 mg/g CRE (<30 mg/g CRE)
[2018-06-29 12:43] LABS: Vitamin B12 386 pg/mL (211-911); Vitamin D,25 Hydroxy 27.6 ng/mL (29.95-100.01)
[2018-06-29 13:07] LABS: AST(SGOT) 19 U/L (15-37); Alanine Aminotransfer ALT/SGPT 27 U/L (13-56); Albumin, Serum 3.9 g/dL (3.2-5.0); Alkaline Phosphatase 128 U/L (45-117); Anion Gap 13 (5-15); BUN 21 mg/dL (7-18); Calcium,Total 9.2 mg/dL (8.5-10.1); Chloride 104 mmol/L (98-107); EST Glomerular Filtration Rate 58 mL/min (>60); Est Glom Filt Rate - Afr Amer 70 mL/min (>60); Ferritin 41 ng/mL (8-252); Globulin 4.1 g/dL (2.2-4.2); Glucose 263 mg/dL (74-106); Sodium Level 140 mmol/L (136-145); Thyroid Stim Hormone (TSH) 1.34 uIU/mL (0.358-3.74)
[2018-06-30 16:24] LABS: PROEL- A/G Ratio 1.1 (0.7-1.7); PROEL- Albumin 3.9 g/dL (2.9-4.4); PROEL- Alpha-1 Globulin 0.2 g/dL (0.0-0.4); PROEL- Beta Globulin 1.1 g/dL (0.7-1.3); PROEL- Gamma Globulin 1.2 g/dL (0.4-1.8); PROEL- Globulin, Total 3.5 g/dL (2.2-3.9); PROEL- TOTAL PROTEIN 7.4 g/dL (6.0-8.5)
[2018-06-30 16:53] LABS: ANTINUCLEAR ANTIBODIES DIRECT Negative (Negative)
== END ==
PROVIDERS: Family Provider Family Medicine; PCP Family Medicine; Visit Provider Family Medicine
DX: R20.2 Paresthesia of skin (principal); E11.43 Type 2 diabetes mellitus with diabetic autonomic (poly)neuropathy; E11.29 Type 2 diabetes mellitus with other diabetic kidney complication
CPT/HCPCS: 36415; 80053; 82043; 82306; 82570; 82607; 82728; 82746; 84165; 84443; 85025; 86038

== ENCOUNTER → 2018-08-20 07:18 | Outpatient (CLI) | payer MEDICARE, SELFPAY ==
[2018-08-20 10:16] LABS: AST(SGOT) 13 U/L (15-37); Alanine Aminotransfer ALT/SGPT 25 U/L (13-56); Alkaline Phosphatase 145 U/L (45-117); Anion Gap 10 (5-15); BUN 19 mg/dL (7-18); BUN/Creat Ratio 21.2 RATIO (10-20); Calcium,Total 9.4 mg/dL (8.5-10.1); Chloride 103 mmol/L (98-107); Cholesterol 187 mg/dL (200); EST Glomerular Filtration Rate 65 mL/min (>60); Est Glom Filt Rate - Afr Amer 79 mL/min (>60); Globulin 3.9 g/dL (2.2-4.2); Glucose 328 mg/dL (74-106); High Density Lipoprotein 44 mg/dL; Potassium 3.6 mmol/L (3.5-5.1); Protein, Total 7.9 g/dL (6.4-8.2); Sodium Level 138 mmol/L (136-145); Triglycerides 252 mg/dL; Very Low Density Lipoprotein 50 mg/dL (5-40)
[2018-08-20 10:20] LABS: Hemoglobin A1c 9.2 % (4.2-6.3)
--- OUTSIDE RECORDS SUMMARY | 2018-10-24 19:44 | XMS RPT_ITS ---
:1945 Author Organization OHIP Care Team Providers Name Role Phone KAYLEIGH DUNBAR (NIURKA) Referring Unavailable KAYLEIGH DUNBAR (NIURKA) Attending Unavailable KAYLEIGH DUNBAR (NIURKA) Referring Unavailable Tabitha Miles Attending Unavailable Tabitha Miles Referring Unavailable Godfrey Holley Primary Care Unavailable Godfrey Holley Primary Care Unavailable Robin Mcdowell Admitting Unavailable Godfrey Petersen Attending Unavailable Robin Mcdowell Admitting Unavailable Jeremias, Robin Attending Unavailable Holley, Godfrey Primary Care Unavailable Jeremias, Robin Consulting Unavailable Jeremias, Robin Admitting Unavailable Jeremias, Robin Attending Unavailable Holley, Godfrey Primary Care Unavailable Jeremias, Robin Consulting Unavailable Jeremias, Robin Admitting Unavailable Jopperi, Godfrey Attending Unavailable Holley, Godfrey Primary Care Unavailable Jopperi, Godfrey Consulting Unavailable Tyler Becker Attending Unavailable Holley, Godfrey Attending Unavailable Holley, Godfrey Primary Care Unavailable Tabitha Miles Attending Unavailable Tabitha Miles Referring Unavailable Holley, Godfrey Primary Care Unavailable Holley, Godfrey Attending Unavailable Holley, Godfrey Primary Care Unavailable PROBLEMS PROBLEMS DATE TYPE CONDITION / CODE ATTENDING STATUS SOURCE 08/20/2018 Unknown E11.29 - Type 2 Raghunatjessy, Active [place] diabetes mellitus Tabitha N. [facility] with other diabetic Hospital kidney complication Repository / E11.29(ICD-10) 08/20/2018 Unknown E11.65 - Type 2 Ragsivakumarnatjessy, Active [place] diabetes mellitus Tabitha NArnold [facility] with hyperglycemia Hospital / E11.65(ICD-10) Repository 06/29/2018 Unknown R20.2 - Paresthesia Godfrey Holley Active [place] of skin / Community R20.2(ICD-10) Hospital Repository 06/29/2018 Unknown E11.43 - Type 2 Godfrey Holley Active [place] diabetes mellitus [facility] with diabetic Hospital autonomic Repository (poly)neuropathy / E11.43(ICD-10) 11/11/2017 Active Unknown / BETTINA, Active [facility] UNK(Unknown) KAYLEIGH ([facility]) [facility] [place] Repository 11/05/2016 Active Malignant neoplasm NA Active [facility] of unspecified site [facility] [place] of left female Repository breast / C50.912(ICD-10) 10/21/2011 Active Estrogen receptor NA Active [facility] positive status [facility] (ER+) / Repository Z17.0(ICD-10) 11/07/2017 Unknown M79.89 - Other Tyler Becker Active [place] specified soft Community tissue disorders / Hospital M79.89(ICD-10) Repository PROCEDURES PROCEDURES No Procedure Records FoundRESULTS RESULTS COMPREHENSIVE METABOLIC Collected: 08/20/2018 Status: F Source: [facility] TYPE CODE TESTS RESULT OUT OF RANGE REFERENCE UNITS LAB L501.0100 74-106 mg/dL High GLU 328 Result Comment: Glucose result greater than or equal to 200 mg/dL suggests DIABETES MELLITUS per A.D.A. criteria. Please note revised GLUCOSE reference range effective 2017. LAB L501.1000 7-18 mg/dL High BUN 19 LAB L501.1100 0.55-1.02 mg/dL Normal CREAT,SERUM 0.90 Result Comment: The validity of the calculated GFR AND GFRAA in patients over 70 years has not been determined. Clinical correlation is essential. LAB L501.1110 >60 mL/min Normal EST GFR 65 Result Comment: Non- GFR Calc LAB L501.1115 >60 mL/min Normal EST GFR - AA 79 Result Comment: GFR Calc LAB L501.1300 10-20 RATIO High BUN/CRE 21.2 LAB L501.1500 6.4-8.2 g/dL T Normal PROT 7.9 LAB L501.1800 3.2-5.0 g/dL Normal ALB 4.0 LAB L501.1950 2.2-4.2 g/dL Normal GLOB 3.9 LAB L501.2000 0.9-2.4 RATIO Normal A/G 1.0 LAB L501.2200 8.5-10.1 mg/dL CA Normal 9.4 LAB L501.4100 15-37 U/L Low AST 13 LAB L501.4305 45-117 U/L High ALK P 145 LAB L501.4405 13-56 U/L Normal ALT 25 LAB L501.4600 0.20-1.00 mg/dL T Normal BILI 0.40 LAB L501.5300 136-145 mmol/L NA Normal 138 LAB L501.5600 3.5-5.1 mmol/L K Normal 3.6 LAB L501.5900 98-107 mmol/L CL Normal 103 LAB L501.6100 21.0-32.0 mmol/L Normal CO2 25.0 LAB L501.6200 5-15 Normal GAP 10 Performed By: #### L500.4050, L500.4100 #### [facility] [address] [place], [address] LIPID PROFILE Collected: 08/20/2018 Status: F Source: [place] 7:23 AM [facility] REPOSITORY TYPE CODE TESTS RESULT OUT OF RANGE REFERENCE UNITS LAB L501.4900 200 mg/dL Normal CHOL 187 Result Comment: <200 mg/dL Desirable 200-240 mg/dL Borderline >240 mg/dL High Risk LAB L501.5000 mg/dL High TRIG 252 Result Comment: The drugs N-Acetylcysteine and Metamizole may falsely depress this assay. Serum Triglycerides Reference Interval Normal <150 mg/dL Borderline high 150 - 199 mg/dL High 200 - 499 mg/dL Very High > or = 500 mg/dL LAB L501.6400 mg/dL Normal HDL 44 Result Comment: The drugs N-Acetylcysteine and Metamizole may falsely depress this assay. Reference Range HDL <40 mg/dL Low HDL Cholesterol HDL >or= 60 mg/dL High HDL Cholesterol LAB L501.6500 0-130 mg/dL Normal LDL 93 LAB L501.6600 5-40 mg/dL High VLDL 50 Performed By: #### L500.4050, L500.4100 #### [facility] [address] [facility] [place], [address] HEMOGLOBIN A1C Collected: 08/20/2018 Status: F Source: [place] 7:23 AM [facility] REPOSITORY TYPE CODE TESTS RESULT OUT OF RANGE REFERENCE UNITS LAB L501.9985 4.2-6.3 % High HGB A1C 9.2 Performed By: #### L501.9985 #### [facility] [address] [place], [address] CBC W/DIFF, AUTOMATED Collected: 06/29/2018 Status: F Source: [place] 9:28 AM [facility] REPOSITORY TYPE CODE TESTS RESULT OUT OF RANGE REFERENCE UNITS LAB L100.1000 4.4-11.0 K/mm3 Normal WBC 7.7 LAB L100.1200 4.2-5.4 M/mm3 Normal RBC 5.01 LAB L100.1300 12.0-15.0 g/dl Normal HGB 14.4 LAB L100.1400 37-47 % Normal HCT 43.7 LAB L100.1500 81-99 fL Normal MCV 87.2 LAB L100.1600 27.0-32.0 pg Normal MCH 28.7 LAB L100.1700 32-36 g/gl Normal MCHC 33.0 LAB L100.1810 11.6-14.6 % Normal RDW CV 13.6 LAB L100.1820 35.1-43.9 fl Normal RDW SD 43.1 LAB L100.1900 150-450 K/mm3 Normal PLT 283 LAB L100.2000 6.2-12.0 fl Normal MPV 10.7 LAB L100.2100 47-70 % Normal NEUT% 64.0 LAB L100.2200 19-41 % Normal LY% 25.6 LAB L100.2300 0-10 % Normal MONO% 7.7 LAB L100.2400 0-5 % Normal EO% 2.2 LAB L100.2500 0-1 % Normal BASO% 0.4 LAB L100.2550 0.0-0.9 % Normal IM GRAN % 0.100 Result Comment: IG% - Immature Granulocytes (promyelocytes, myelocytes and metamyelocytes) > 1% indicates that a LEFT SHIFT is Present. LAB L100.2620 2.0-7.7 X10 3/uL Normal Absolute Neut 4.9 LAB L100.2720 0.83-4.51 X10 3/ul Normal Absolute Lymph 1.96 Performed By: #### L100.0100, L502.0250, L503.0105, L506.1000, L500.4050, L501.9520, L503.6550, L506.0250 #### [facility] [address] [facility] [place], [address] #### L3100.3450, L3100.5475 #### [facility] (refer to report for specific site) refer to report for address and phone number MICROALB:CREAT Collected: 06/29/2018 Status: F Source: [facility] 9:28 AM [facility] REPOSITORY TYPE CODE TESTS RESULT OUT OF RANGE REFERENCE UNITS LAB L501.1200 NO RANGE EST. mg/dL Normal UR CREAT 24.00 LAB L502.0500 NO RANGE EST. mg/L Normal 15.2 MICROALBUMIN ,UR LAB L502.0600 <30 mg/g CRE mg/g CRE High 63.3 MALB:CREAT Performed By: #### L100.0100, L502.0250, L503.0105, L506.1000, L500.4050, L501.9520, L503.6550, L506.0250 #### [facility] [address] [place], [address] #### L3100.3450, L3100.5475 #### [facility] (refer to report for specific site) refer to report for address and phone number VITAMIN B12 Collected: 06/29/2018 Status: F Source: [place] 9:28 AM [facility] REPOSITORY TYPE CODE TESTS RESULT OUT OF RANGE REFERENCE UNITS LAB L503.0105 211-911 pg/mL Normal Vitamin B12 386 Performed By: #### L100.0100, L502.0250, L503.0105, L506.1000, L500.4050, L501.9520, L503.6550, L506.0250 #### [facility] [address] [facility] [place], [address] #### L3100.3450, L3100.5475 #### [facility] (refer to report for specific site) refer to report for address and phone number VITAMIN D,25 HYDROXY Collected: 06/29/2018 Status: F Source: [place] 9:28 AM [facility] REPOSITORY TYPE CODE TESTS RESULT OUT OF REFERENCE UNITS RANGE LAB L506.1000 29.95-100.01 ng/mL Low Vitamin D 27.6 25-OH Result Comment: Vitamin D 25(OH) Status Range Deficiency <20 ng/mL (50nmol/L) Insuffciency 20 - 30 ng/mL (50 - 75 nmol/L) Sufficiency 30 - 100 ng/mL (75 - 250 nmol/L) Toxicity >100 ng/mL (>250 nmol/L) Performed By: #### L100.0100, L502.0250, L503.0105, L506.1000, L500.4050, L501.9520, L503.6550, L506.0250 #### [facility] [address] [place], [address] #### L3100.3450, L3100.5475 #### [facility] (refer to report for specific site) refer to report for address and phone number COMPREHENSIVE METABOLIC Collected: 06/29/2018 Status: F Source: [place] 9:28 AM [facility] REPOSITORY Order Comment: Is Patient Taking Vitamins or Folic Acid Supplements? N TYPE CODE TESTS RESULT OUT OF RANGE REFERENCE UNITS LAB L501.0100 74-106 mg/dL High GLU 263 Result Comment: Glucose result greater than or equal to 200 mg/dL suggests DIABETES MELLITUS per A.D.A. criteria. Please note revised GLUCOSE reference range effective 2017. LAB L501.1000 7-18 mg/dL High BUN 21 LAB L501.1100 0.55-1.02 mg/dL Normal CREAT,SERUM 1.00 Result Comment: The validity of the calculated GFR AND GFRAA in patients over 70 years has not been determined. Clinical correlation is essential. LAB L501.1110 >60 mL/min Low EST GFR 58 Result Comment: Non- GFR Calc LAB L501.1115 >60 mL/min Normal EST GFR - AA 70 Result Comment: GFR Calc LAB L501.1300 10-20 RATIO High BUN/CRE 21.0 LAB L501.1500 6.4-8.2 g/dL T Normal PROT 8.0 LAB L501.1800 3.2-5.0 g/dL Normal ALB 3.9 LAB L501.1950 2.2-4.2 g/dL Normal GLOB 4.1 LAB L501.2000 0.9-2.4 RATIO Normal A/G 1.0 LAB L501.2200 8.5-10.1 mg/dL CA Normal 9.2 LAB L501.4100 15-37 U/L Normal AST 19 LAB L501.4305 45-117 U/L High ALK P 128 LAB L501.4405 13-56 U/L Normal ALT 27 LAB L501.4600 0.20-1.00 mg/dL T Normal BILI 0.40 LAB L501.5300 136-145 mmol/L NA Normal 140 LAB L501.5600 3.5-5.1 mmol/L K Normal 4.0 LAB L501.5900 98-107 mmol/L CL Normal 104 LAB L501.6100 21.0-32.0 mmol/L Normal CO2 23.0 LAB L501.6200 5-15 Normal GAP 13 Performed By: #### L100.0100, L502.0250, L503.0105, L506.1000, L500.4050, L501.9520, L503.6550, L506.0250 #### [facility] [address] [facility]. [place], [place], [id number] #### L3100.3450, L3100.5475 #### [facility] (refer to report for specific site) refer to report for address and phone number THYROID STIM HORMONE Collected: 06/29/2018 Status: F Source: [place] ([facility]) 9:28 AM [facility] REPOSITORY Order Comment: Is Patient Taking Vitamins or Folic Acid Supplements? N TYPE CODE TESTS RESULT OUT OF RANGE REFERENCE UNITS LAB L501.9520 0.358-3.74 uIU/mL Normal TSH 1.34 Performed By: #### L100.0100, L502.0250, L503.0105, L506.1000, L500.4050, L501.9520, L503.6550, L506.0250 #### [facility] [facility]. [place], [place], [id number] #### L3100.3450, L3100.5475 #### [facility] (refer to report for specific site) refer to report for address and phone number FERRITIN Collected: 06/29/2018 Status: F Source: [place] 9:28 AM [facility] REPOSITORY Order Comment: Is Patient Taking Vitamins or Folic Acid Supplements? N TYPE CODE TESTS RESULT OUT OF RANGE REFERENCE UNITS LAB L503.6550 8-252 ng/mL Normal FERRITIN 41 Performed By: #### L100.0100, L502.0250, L503.0105, L506.1000, L500.4050, L501.9520, L503.6550, L506.0250 #### [facility] [address] [facility] [place], [place], [id number] #### L3100.3450, L3100.5475 #### [facility] (refer to report for specific site) refer to report for address and phone number FOLATES, (FOLIC ACID) Collected: 06/29/2018 Status: F Source: [place] 9:28 AM [facility] REPOSITORY Order Comment: Is Patient Taking Vitamins or Folic Acid Supplements? N TYPE CODE TESTS RESULT OUT OF RANGE REFERENCE UNITS LAB L506.0250 3.1-55.4 ng/mL Normal FOLATES 38.50 Result Comment: Slight Hemolysis, Result may be falsely increased. Performed By: #### L100.0100, L502.0250, L503.0105, L506.1000, L500.4050, L501.9520, L503.6550, L506.0250 #### [facility] [address] [place], [place], [id number] #### L3100.3450, L3100.5475 #### [facility] (refer to report for specific site) refer to report for address and phone number PROTEIN ELECTROPH, S Collected: 06/29/2018 Status: F Source: [place] 9:28 AM [facility] REPOSITORY TYPE CODE TESTS RESULT OUT OF RANGE REFERENCE UNITS LAB L3100.3500 6.0-8.5 g/dL Normal PROTEIN,TOTAL 7.4 LAB L3100.3600 2.9-4.4 g/dL Normal ALBUMIN 3.9 LAB L3100.3700 0.0-0.4 g/dL Normal ALPHA-1 GLOBUL 0.2 LAB L3100.3800 0.4-1.0 g/dL Normal ALPHA-2 GLOBUL 1.0 LAB L3100.3900 0.7-1.3 g/dL Normal BETA GLOBULIN 1.1 LAB L3100.4000 0.4-1.8 g/dL Normal GAMMA GLOBULIN 1.2 LAB L3100.4110 Normal M-SPIKE Result Comment: Not Observed LAB L3100.4200 2.2-3.9 g/dL GLOBULIN, TOTAL Normal 3.5 LAB L3100.4300 0.7-1.7 A/G RATIO Normal 1.1 LAB L3100.4320 . INTERPRETATION Normal Comment Result Comment: Protein electrophoresis scan will follow via computer, mail, or inventory representative delivery. LAB L3100.4340 . Normal NOTE: Comment Result Comment: The SPE pattern appears essentially unremarkable. Evidence of monoclonal protein is not apparent. Performed at: [facility] - [facility] [id number] [employer] Operator: Boo Long PhD, Phone: [phone] Performed By: #### L100.0100, L502.0250, L503.0105, L506.1000, L500.4050, L501.9520, L503.6550, L506.0250 #### [facility] [address] [place] [address]. [place] [id number] #### L3100.3450, L3100.5475 #### [facility] (refer to report for specific site) refer to report for address and phone number ANTINUCLEAR ANTIBODIES Collected: 06/29/2018 Status: F Source: [facility] DIRECT 9:28 AM [facility] REPOSITORY TYPE CODE TESTS RESULT OUT OF RANGE REFERENCE UNITS LAB L3100.5475 Negative Normal Negative DANIEL-DIRECT Result Comment: Performed at: - [facility] [id number] [employer] Operator: Boo Long PhD, Phone: [phone] Performed By: #### L100.0100, L502.0250, L503.0105, L506.1000, L500.4050, L501.9520, L503.6550, L506.0250 #### [facility] [address] [place], [place] [id number] #### L3100.3450, L3100.5475 #### [facility] (refer to report for specific site) refer to report for address and phone number MICROALB:CREAT Collected: 04/20/2018 Status: F Source: [facility] RATIO,RANDOM UR 9:47 AM [facility] REPOSITORY TYPE CODE TESTS RESULT OUT OF RANGE REFERENCE UNITS LAB L501.1200 NO RANGE EST. mg/dL Normal UR CREAT 18.80 LAB L502.0500 NO RANGE EST. mg/L Normal 11.9 MICROALBUMIN ,UR LAB L502.0600 <30 mg/g CRE mg/g CRE High 63.3 MALB:CREAT Performed By: #### L502.0250 #### [facility] [address] [place], [place] [id number] HEMOGLOBIN A1C Collected: 04/20/2018 Status: F Source: [place] 9:47 AM [facility] REPOSITORY TYPE CODE TESTS RESULT OUT OF RANGE REFERENCE UNITS LAB L501.9985 4.2-6.3 % High HGB A1C 8.2 Performed By: #### L501.9985 #### [facility] [address] [place], [address] COMPREHENSIVE METABOLIC Collected: 04/20/2018 Status: F Source: [facility] 9:47 AM [facility] REPOSITORY TYPE CODE TESTS RESULT OUT OF RANGE REFERENCE UNITS LAB L501.0100 74-106 mg/dL High GLU 252 Result Comment: Glucose result greater than or equal to 200 mg/dL suggests DIABETES MELLITUS per A.D.A. criteria. Please note revised GLUCOSE reference range effective 2017. LAB L501.1000 7-18 mg/dL High BUN 19 LAB L501.1100 0.55-1.02 mg/dL Normal CREAT,SERUM 0.96 Result Comment: The validity of the calculated GFR AND GFRAA in patients over 70 years has not been determined. Clinical correlation is essential. LAB L501.1110 >60 mL/min Normal EST GFR 61 Result Comment: Non- GFR Calc LAB L501.1115 >60 mL/min Normal EST GFR - AA 73 Result Comment: GFR Calc LAB L501.1300 10-20 RATIO Normal BUN/CRE 19.8 LAB L501.1500 6.4-8.2 g/dL T Normal PROT 8.2 LAB L501.1800 3.2-5.0 g/dL Normal ALB 4.0 LAB L501.1950 2.2-4.2 g/dL Normal GLOB 4.2 LAB L501.2000 0.9-2.4 RATIO Normal A/G 1.0 LAB L501.2200 8.5-10.1 mg/dL CA Normal 9.7 LAB L501.4100 15-37 U/L Normal AST 18 LAB L501.4305 45-117 U/L High ALK P 128 LAB L501.4405 13-56 U/L Normal ALT 23 LAB L501.4600 0.20-1.00 mg/dL T Normal BILI 0.40 LAB L501.5300 136-145 mmol/L NA Normal 139 LAB L501.5600 3.5-5.1 mmol/L K Normal 3.7 LAB L501.5900 98-107 mmol/L CL Normal 102 LAB L501.6100 21.0-32.0 mmol/L Normal CO2 26.0 LAB L501.6200 5-15 Normal GAP 11 Performed By: #### L500.4050, L500.4100, L501.9520 #### [facility] [address] [place], [place], [address] LIPID PROFILE Collected: 04/20/2018 Status: F Source: [place] 9:47 AM [facility] REPOSITORY TYPE CODE TESTS RESULT OUT OF RANGE REFERENCE UNITS LAB L501.4900 200 mg/dL Normal CHOL 180 Result Comment: <200 mg/dL Desirable 200-240 mg/dL Borderline >240 mg/dL High Risk LAB L501.5000 mg/dL High TRIG 307 Result Comment: The drugs N-Acetylcysteine and Metamizole may falsely depress this assay. Serum Triglycerides Reference Interval Normal <150 mg/dL Borderline high 150 - 199 mg/dL High 200 - 499 mg/dL Very High > or = 500 mg/dL LAB L501.6400 mg/dL Normal HDL 44 Result Comment: The drugs N-Acetylcysteine and Metamizole may falsely depress this assay. Reference Range HDL <40 mg/dL Low HDL Cholesterol HDL >or= 60 mg/dL High HDL Cholesterol LAB L501.6500 0-130 mg/dL Normal LDL 75 LAB L501.6600 5-40 mg/dL High VLDL 61 Performed By: #### L500.4050, L500.4100, L501.9520 #### [facility] [address] [place], [place], [id number] THYROID STIM HORMONE Collected: 04/20/2018 Status: F Source: [place] (TSH) 9:47 AM [facility] REPOSITORY TYPE CODE TESTS RESULT OUT OF RANGE REFERENCE UNITS LAB L501.9520 0.358-3.74 uIU/mL Normal TSH 1.22 Performed By: #### L500.4050, L500.4100, L501.9520 #### [facility] [address] [place], [address] HEMOGLOBIN A1C Collected: 12/25/2017 Status: F Source: [place] 10:24 AM [facility] REPOSITORY TYPE CODE TESTS RESULT OUT OF RANGE REFERENCE UNITS LAB L501.9985 4.2-6.3 % High HGB A1C 9.6 Performed By: #### L501.9985 #### [facility] [address] [place], [address] COMPREHENSIVE METABOLIC Collected: 12/25/2017 Status: F Source: [facility] 10:24 AM [facility] REPOSITORY TYPE CODE TESTS RESULT OUT OF RANGE REFERENCE UNITS LAB L501.0100 74-106 mg/dL High GLU 263 Result Comment: Glucose result greater than or equal to 200 mg/dL suggests DIABETES MELLITUS per A.D.A. criteria. Please note revised GLUCOSE reference range effective 2017. LAB L501.1000 7-18 mg/dL Normal BUN 18 LAB L501.1100 0.55-1.02 mg/dL Normal CREAT,SERUM 0.82 Result Comment: The validity of the calculated GFR AND GFRAA in patients over 70 years has not been determined. Clinical correlation is essential. LAB L501.1110 >60 mL/min Normal EST GFR 72 Result Comment: Non- GFR Calc LAB L501.1115 >60 mL/min Normal EST GFR - AA 88 Result Comment: GFR Calc LAB L501.1300 10-20 RATIO High BUN/CRE 22.0 LAB L501.1500 6.4-8.2 g/dL High T PROT 8.3 LAB L501.1800 3.2-5.0 g/dL Normal ALB 4.1 LAB L501.1950 2.2-4.2 g/dL Normal GLOB 4.2 LAB L501.2000 0.9-2.4 RATIO Normal A/G 1.0 LAB L501.2200 8.5-10.1 mg/dL CA Normal 9.4 LAB L501.4100 15-37 U/L Normal AST 16 LAB L501.4305 45-117 U/L Normal ALK P 116 LAB L501.4405 13-56 U/L Normal ALT 18 LAB L501.4600 0.20-1.00 mg/dL T Normal BILI 0.40 LAB L501.5300 136-145 mmol/L NA Normal 136 LAB L501.5600 3.5-5.1 mmol/L K Normal 3.8 LAB L501.5900 98-107 mmol/L CL Normal 103 LAB L501.6100 21.0-32.0 mmol/L Normal CO2 26.0 LAB L501.6200 5-15 Normal GAP 7 Performed By: #### L500.4050, L501.5200, L501.9520 #### [facility] [address] [place], [address] MAGNESIUM Collected: 12/25/2017 Status: F Source: [place] 10:24 AM [facility] REPOSITORY TYPE CODE TESTS RESULT OUT OF RANGE REFERENCE UNITS LAB L501.5200 1.6-2.6 mg/dL Normal MG 2.1 Performed By: #### L500.4050, L501.5200, L501.9520 #### [facility] [address] [place], [address] THYROID STIM HORMONE Collected: 12/25/2017 Status: F Source: [place] (TSH) 10:24 AM [facility] REPOSITORY TYPE CODE TESTS RESULT OUT OF RANGE REFERENCE UNITS LAB L501.9520 0.358-3.74 uIU/mL Normal TSH 1.31 Performed By: #### L500.4050, L501.5200, L501.9520 #### [facility] [address] [place], [address] MICROALB:CREAT Collected: 12/25/2017 Status: F Source: [place] RATIO,RANDOM UR 10:24 AM [facility] REPOSITORY TYPE CODE TESTS RESULT OUT OF RANGE REFERENCE UNITS LAB L501.1200 NO RANGE EST. mg/dL Normal UR CREAT 14.90 LAB L502.0500 NO RANGE EST. mg/L Normal 11.5 MICROALBUMIN ,UR LAB L502.0600 <30 mg/g CRE mg/g CRE High 77.2 MALB:CREAT Performed By: #### L502.0250 #### [facility] [address] [place], [address] CBC W/DIFF, AUTOMATED Collected: 12/25/2017 Status: F Source: [place] 10:24 AM [facility] REPOSITORY TYPE CODE TESTS RESULT OUT OF RANGE REFERENCE UNITS LAB L100.1000 4.4-11.0 K/mm3 Normal WBC 8.5 LAB L100.1200 4.2-5.4 M/mm3 Normal RBC 5.08 LAB L100.1300 12.0-15.0 g/dl Normal HGB 14.1 LAB L100.1400 37-47 % Normal HCT 42.7 LAB L100.1500 81-99 fL Normal MCV 84.1 LAB L100.1600 27.0-32.0 pg Normal MCH 27.8 LAB L100.1700 32-36 g/gl Normal MCHC 33.0 LAB L100.1810 11.6-14.6 % Normal RDW CV 13.5 LAB L100.1820 35.1-43.9 fl Normal RDW SD 41.2 LAB L100.1900 150-450 K/mm3 Normal PLT 268 LAB L100.2000 6.2-12.0 fl Normal MPV 10.0 LAB L100.2100 47-70 % Normal NEUT% 67.1 LAB L100.2200 19-41 % Normal LY% 23.3 LAB L100.2300 0-10 % Normal MONO% 7.2 LAB L100.2400 0-5 % Normal EO% 1.8 LAB L100.2500 0-1 % Normal BASO% 0.4 LAB L100.2550 0.0-0.9 % Normal IM GRAN % 0.200 Result Comment: IG% - Immature Granulocytes (promyelocytes, myelocytes and metamyelocytes) > 1% indicates that a LEFT SHIFT is Present. LAB L100.2620 2.0-7.7 X10 3/uL Normal Absolute Neut 5.7 LAB L100.2720 0.83-4.51 X10 3/ul Normal Absolute Lymph 1.97 Performed By: #### L100.0100 #### [facility] [address] [place], [address] VITAMIN D,25 HYDROXY Collected: 12/25/2017 Status: F Source: [place] 10:24 AM [facility] REPOSITORY Order Comment: CC COPY TO /ENDOCRINOLOGY TYPE CODE TESTS RESULT OUT OF RANGE REFERENCE UNITS LAB L506.1000 29.95-100.01 ng/mL Normal Vitamin D 49.0 25-OH Result Comment: Vitamin D 25(OH) Status Range Deficiency <20 ng/mL (50nmol/L) Insuffciency 20 - 30 ng/mL (50 - 75 nmol/L) Sufficiency 30 - 100 ng/mL (75 - 250 nmol/L) Toxicity >100 ng/mL (>250 nmol/L) Performed By: #### L506.1000 #### [facility] [place], [address] CNOVSP Observed: 11/11/2017 Status: COMPLETED Source: [place] 8:[address] [facility] REPOSITORY Visit (SP) Office (HEMAWS) DE LA CRUZBÁRBARA ([id number]) 1945 F Date Time Provider Department 11/11/17 8:30 AM [facility] DUNBAR (NIURKA) LEONARD During your visit today, we recorded the following information about you: Temperature Pulse Blood pressure Weight 98.2 degrees 93/minute 172/95 61 kg Adriana Landin LPN, LUIS MANUEL 11/11/2017 8:42 AM Signed Est pt, discuss recent mamm LUIS MANUEL Treviño APRN.NIUKRA 11/12/2017 8:35 AM Signed Chief Complaint Patient presents with: Established Patient HPI: Bárbara Morena De La Cruz is a 71 year old female who presents here today for follow up breast cancer. H/o an abnormal mammogram. The patient had a mammogram with ultrasound on 08/08/11 which demonstrated Birads 4. On August 19, 2011 she underwent an ultrasound-guided needle core biopsy of her left breast. The lesion was located in the lower inner quadrant of her breast. The pathology report came back a well to moderately differentiated invasive ductal breast cancer. ? Dr. Martinez performed a left needle localization lumpectomy with sentinel lymph node biopsy on September 25, 2011. The pathology demonstrated moderately differentiated invasive ductal carcinoma. The tumor's greatest dimension was 2 cm. Surgical margins were free of disease. 1 out of 1 lymph nodes were negative for metastatic disease. The estrogen receptors 100% positive, the progesterone receptors 99% positive, the [id number] receptors were equivocal. HER-2 by FISH were negative. Pathologic stage was pT1c N0 MX. ?? Patient completed radiation therapy in Dec, 2011. ?? Started tamoxifen after radiation. ? ANDquot;I just got over a respiratory infection.ANDquot; ?? Appetite:ANDquot;too goodANDquot; Energy level:ANDquot;it's okayANDquot; Denies fevers. Recent URI. ? Resp:denies cough or sob ? Cardiac:denies chest pain/palpitations ? GI:denies abd pain, n/v, moving bowels regularly? :denies dysuria/hematuria ? Extrem:denies pain to back/bones/joints? Endo:denies hot flashes ? Neuro:hand neuropathy-chronic RANDgt;L-stable Skin:denies rashes/lesions ? Heme:denies bleeding The ROS is otherwise negative. Past medical history, appointments, medications, allergies reviewed. No changes. EXAM: BP 172/95 Pulse 93 Temp 36.8 ?C (98.2 ?F) Wt 61 kg (134 lb 8 oz) BMI 23.83 kg/m2 APPEARANCE Well appearing, alert, in no acute distress, well- hydrated, well nourished. HEART RRR with normal S1 and S2, no murmurs LUNG clear to auscultation BREAST FEMALE no mass/nodule b/l LYMPH NODES No cervical lymphadenopathy, No supraclavicular lymphadenopathy and No axillary lymphadenopathy. ABDOMEN bowel sounds normoactive, no bruits, soft, non-tender, non-distended, without organomegaly or palpable masses EXTREMITIES No edema NEURO Awake, alert and oriented x 3, Normal gait and No involuntary motions. SKIN Skin color, texture, turgor normal, no suspicious rashes or lesions RADIOLOGY: Mammogram 11/03/17: IMPRESSION: NEGATIVE There is no mammographic evidence of malignancy.A 1 year screening mammogram is recommended. ASSESSMENT/PLAN: 1. 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 - No concerning findings on exam. - Completed 5 years of tamoxifen January 2017. - Reviewed mammogram with pt. - Mammogram due in one year. - Follow up in one year after mammogram. - Pt. aware to call office with any questions/concerns. The patient indicates understanding of these issues and agrees with the plan. Kayleigh Dunbar APRN.[facility] Referring Provider: KAYLEIGH DUNBAR ([facility]) [[id number]] Allergies As of Date: 11/11/2017 (No Known Allergies) Date Reviewed: 11/11/2017 Reviewed by: Kayleigh ([facility]) Bettina - Fully Assessed Reason for Visit: Established Patient [175] Primary Visit Diagnosis:Invasive ductal carcinoma of left breast in female (HCC) [C50.912] Other Visit Diagnosis:Encounter for screening mammogram for high-risk patient [Z12.31] Order(s):[facility] SCREEN[facility] [[id number]] Order #: [id number] FUTURE Follow-up and Disposition History Recorded Prescriptions as of 11/11/2017 Sig: TRESIBA FLEXTOUCH U-200 SUBCU* Inject 80 Units subcutaneousl* INSULIN U-100 REGULAR HUMAN 1* Inject 60 Units subcutaneousl* PSYLLIUM HUSK (BULK) 100 % PO* One tablespoon before each me* AMLODIPINE 5 MG-BENAZEPRIL 20* Take 1 capsule by mouth twice* PIOGLITAZONE 45 MG TABLET Take 45 mg by mouth once ashlyn* SPIRONOLACTONE 50 MG TABLET Take 50 mg by mouth once ashlyn* BISOPROLOL 5 MG-HYDROCHLOROTH* Take 1 tablet by mouth twice * METFORMIN ER 1,000 MG TABLET,* Take 1,000 mg by mouth twice * ERGOCALCIFEROL (VITAMIN D2) 5* One capsule weekly. LIRAGLUTIDE 0.6 MG/0.1 ML (18* Inject 1.8 mg subcutaneously * * CRESTOR ORAL Take 1 tablet by mouth once d* * ASPIRIN 81 MG TABLET,DELAYED * Take 81 mg by mouth once ashlyn* * COENZYME Q10 10 MG CAPSULE Take 10 mg by mouth twice jonna* * CALCIUM-MAGNESIUM 500 MG-250 * Take 1 tablet by mouth twice * Problem List As Of Date 11/11/2017 Noted Resolved Abnormal mammogram, unspecified [R92.8] INVALID FOR*11/14/2011 Breast cancer [C50.919] INVALID FOR* ER+ (estrogen receptor positive status) [Z17.0] INVALID FOR* Screen for colon cancer [Z12.11] INVALID FOR* Vitamin D deficiency [E55.9] INVALID FOR* Invasive ductal carcinoma of left breast in fem*INVALID FOR* Visit Notes: >> Adriana Barrett (Luis Manuel) LUIS MANUEL Landin matthew Nov 11, 2017 8:22 AM Status: Signed Est pt, discuss recent mamm Adriana Landin LPN Encounter Status:Closed by KAYLEIGH DUNBAR CNP on 11/12/17 PROGRESS Observed: 11/11/2017 Status: COMPLETED Source: [place] 8:[address] [facility] REPOSITORY HNO ID: [id number] Author: Kayleigh Clifford) Bettina Service: (none) Author Type: Nurse Practitioner Type: Progress Notes Filed: 11/12/2017 8:35 AM Note Text: Chief Complaint Patient presents with: Established Patient HPI: Bárbara De La Cruz is a 71 year old female who presents here today for follow up breast cancer. H/o an abnormal mammogram. The patient had a mammogram with ultrasound on 08/08/11 which demonstrated Birads 4. On August 19, 2011 she underwent an ultrasound-guided needle core biopsy of her left breast. The lesion was located in the lower inner quadrant of her breast. The pathology report came back a well to moderately differentiated invasive ductal breast cancer. ? Dr. Martinez performed a left needle localization lumpectomy with sentinel lymph node biopsy on September 25, 2011. The pathology demonstrated moderately differentiated invasive ductal carcinoma. The tumor's greatest dimension was 2 cm. Surgical margins were free of disease. 1 out of 1 lymph nodes were negative for metastatic disease. The estrogen receptors 100% positive, the progesterone receptors 99% positive, the Yck1Pnr receptors were equivocal. HER-2 by FISH were negative. Pathologic stage was pT1c N0 MX. ?? Patient completed radiation therapy in Dec, 2011. ?? Started tamoxifen after radiation. ? I just got over a respiratory infection. ?? Appetite:too good Energy level:it's okay Denies fevers. Recent URI. ? Resp:denies cough or sob ? Cardiac:denies chest pain/palpitations ? GI:denies abd pain, n/v, moving bowels regularly? :denies dysuria/hematuria ? Extrem:denies pain to back/bones/joints? Endo:denies hot flashes ? Neuro:hand neuropathy-chronic R>L-stable Skin:denies rashes/lesions ? Heme:denies bleeding The ROS is otherwise negative. Past medical history, appointments, medications, allergies reviewed. No changes. EXAM: BP 172/95 Pulse 93 Temp 36.8 ?C (98.2 ?F) Wt 61 kg (134 lb 8 oz) BMI 23.83 kg/m2 APPEARANCE Well appearing, alert, in no acute distress, well-hydrated, well nourished. HEART RRR with normal S1 and S2, no murmurs LUNG clear to auscultation BREAST FEMALE no mass/nodule b/l LYMPH NODES No cervical lymphadenopathy, No supraclavicular lymphadenopathy and No axillary lymphadenopathy. ABDOMEN bowel sounds normoactive, no bruits, soft, non-tender, non-distended, without organomegaly or palpable masses EXTREMITIES No edema NEURO Awake, alert and oriented x 3, Normal gait and No involuntary motions. SKIN Skin color, texture, turgor normal, no suspicious rashes or lesions RADIOLOGY: Mammogram 11/03/17: IMPRESSION: NEGATIVE There is no mammographic evidence of malignancy.A 1 year screening mammogram is recommended. ASSESSMENT/PLAN: 1. 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 - No concerning findings on exam. - Completed 5 years of tamoxifen January 2017. - Reviewed mammogram with pt. - Mammogram due in one year. - Follow up in one year after mammogram. - Pt. aware to call office with any questions/concerns. The patient indicates understanding of these issues and agrees with the plan. Kayleigh Dunbar APRN.[facility] Observed: 11/03/2017 Status: COMPLETED Source: [place] 8:36 AM [facility] REPOSITORY O ID: [id number] Author: Mammography Coordinator Service: (none) Author Type: Physician Type: Letter Filed: 11/04/2017 11:31 PM Note Text: November 03, 2017 PID: [id number] Bárbara De La Cruz [address] [place] [address] Dear Ms. De La Cruz, We are pleased to inform you that the results of your recent breast imaging exam on 11/03/2017 are normal. Your mammogram demonstrates that you have dense breast tissue, which could hide abnormalities. Dense breast tissue, in and of itself, is a relatively common condition. Therefore, this information is not provided to cause undue concern; rather, it is to raise your awareness and promote discussion with your health care provider regarding the presence of dense breast tissue in addition to other risk factors. Early detection of cancer is very important. We also understand recommendations regarding breast cancer screening are controversial. Please discuss with your primary care provider which strategy is best for you and whether a mammogram is right for you. Your imaging studies and report will be kept on file at [facility] as part of your permanent medical record and are available for your continuing care. Thank you for allowing us to help in meeting your health care needs. Sincerely, Dr. Gonzalez Interpreting Radiologist [facility] (Normal over 40) [facility] S[facility] Observed: 11/03/2017 Status: F Source: [place] 8:09 AM [facility] REPOSITORY * * *Final Report* * * DATE OF EXAM: Nov 03 2017 8:09AM [facility] 0581 - [facility] SCREENING / PROCEDURE REASON: multiple diagnoses * * * * Physician Interpretation * * * * RESULT: #[id number] - [facility] SCREENING BILATERAL DIGITAL SCREENING MAMMOGRAM WITH CAD: 11/03/2017 HISTORY: Multiple Diagnoses /Screening Mammogram - patient reports NO symptoms /priors available for comparison. RESULT: TECHNIQUE: The study was acquired using full field digital technology and interpreted from soft copy. Current study was also evaluated with a Computer Aided Detection (CAD). Comparison is made to exams dated: 11/01/2016 mammogram, 10/31/2015 mammogram, 10/30/2015 mammogram, and 10/26/2014 mammogram - [facility]. The tissue of both breasts is heterogeneously dense. This may lower the sensitivity of mammography. Left lumpectomy. There are post operative findings in the left breast. No significant masses, calcifications, or other findings are seen in either breast. There has been no significant interval change. IMPRESSION: NEGATIVE There is no mammographic evidence of malignancy.A 1 year screening mammogram is recommended. Viola haines/dennys:11/03/2017 08:36:43 Earth Science Teacher: Hermelinda GALLEGO)(Shannon), [facility] letter sent: Normal over 40 Mammogram BI-RADS: 1 Negative Vp: Dennys Transcribe Date/Time: Nov 03 2017 7:55A Dictated by: VIOLA GONZALEZ MD This examination was interpreted and the report reviewed and electronically signed by: VIOLA GONZALEZ MD on Nov 03 2017 8:36AM EST [id number] PROGRESS Observed: 11/03/2017 Status: COMPLETED Source: [place] 7:54 AM [facility] [place] REPOSITORY HNO ID: [id number] Author: Elizabeth Monson Service: (none) Author Type: (none) Type: Progress Notes Filed: 11/03/2017 8:11 AM Note Text: Radiology Service Progress Note PATIENT NAME: Bárbara De La Cruz DATE OF SERVICE: November 03, 2017 TIME: 7:54 AM PATIENT IDENTITY VERIFICATION COMPLETED USING TWO (2) METHODS: Patient confirmed name verbally and Date of . PATIENT GENDER DATA: Female. status: : No status: NO. PATIENT RELEVANT IMPLANT DATA REVIEWED: Not Applicable RADIOLOGY DEPARTMENT: [facility] sinan scr mammogram PERIPHERAL IV DATA: Not applicable SIGNED BY: Elizabeth Monson November 03, 2017 7:54 AM VENOUS DUPLEX LOWER Observed: 09/22/2017 Status: F Source: [place] EXTREMITY 5:28 PM [facility] REPOSITORY [facility] Cardiovascular Services [address] [place] [address] Venous Duplex US - Sinan Extrem 09/22/17 1127 MR#: [id number] Acct: [id number] Name: BÁRBARA DE LA CRUZ Rep #: [id number] : 1945 71 From: Tyler Becker MD Attending Dr: Godfrey Petersen DO Status: DIS IN Ordering Dr: Robin Mcdowell MD Date: 09/20/17 Location: [facility] Sex: F C Admitted: 02/17/18 Reason For Study: LEG SWELLING RIGHT LEFT GSV is normal. GSV is normal. CFV is compressible, spontaneous, phasic, CFV is compressible, spontaneous, phasic, competent and demonstrates normal competent, and demonstrates normal augmentation. augmentation. FV is compressible, spontaneous, phasic, FV is compressible, spontaneous, phasic, competent and demonstrates normal competent and demonstrates normal augmentation. augmentation. POP V is compressible, spontaneous, phasic, POP V is compressible, spontaneous, phasic, competent and demonstrates normal competent and demonstrates normal augmentation. augmentation. T/P Trunk is compressible. T/P Trunk is compressible. PTV is compressible. PTV is compressible. RT PerV is compressible. LT PerV is compressible. Procedure Exam performed in department. A preliminary report was called and/or faxed to [facility] nurse. Interpretation Summary No evidence for acute deep venous thrombosis bilateral lower extremities with patent and compressible bilateral great saphenous veins. Ordering Physician: Robin Mcdowell Referring Physician: Godfrey Holley MD Performed By: Faby Hamm RVT 09/22/171726 Date Tyler Becker MD CC: Godfrey Holley MD; Robin Mcdowell MD Date Dictated: 09/22/171126 Date Transcribed: 09/22/171726 Vp: Signed DISCHARGE SUMMARY Observed: 09/22/2017 Status: F Source: [place] 11:42 AM [facility] REPOSITORY [facility] Medical Records Department [address] [place] [address] Discharge Summary 09/22/17 1139 MR#: [id number] Acct: [id number] Name: BÁRBARA DE LA CRUZ Rep #: [id number] : 1945 71 From: Godfrey Petersen DO PCP: Godfrey Holley MD Status: ADM IN Y Location: [facility] [id number] Discharge Date and Diagnosis - Problem List Patient Problems: Active and Suspected Problems Cellulitis of right leg (Acute) Date of Admission: 09/20/17 Date of Discharge: 09/22/17 - Primary Discharge Diagnosis Active and Suspected Problems Cellulitis of right leg (Acute) - Secondary Discharge Diagnosis Chronic Problems Diabetes mellitus type 2 in nonobese (Chronic) Dyslipidemia (Chronic) Diabetic neuropathy (Chronic) Hypertension (Chronic) Hospital Course and Treatment Operations: None Procedures: None Summary of Care Provided: The patient is a 71 year old F Jose Armando with cellulitis to the right lower extremity. Patient had pain and swelling for about 3 days prior to admission. Patient had a wound on the backside of her right calf that may been the nidus of the infection. Patient's area was marked off and patient was started on cefazolin. Patient did have wound culture positive for group A streptococcus. Patient's erythema has greatly improved. Patient still does have some right lower extremity edema but much improved per the patient. Patient will be discharged with Keflex 504 times daily for 8 more days to complete a 10 day course of antibiotics. Patient's course was comp gated due to hypoglycemia. Her blood sugar of 48 on the . After discussion with the patient is felt that this is actually due to the patient's diet. Patient states that she does not receive follow a restricted diet at home and is pretty liberal on what she eats. And she states that she does take her insulin as she is directed. I feel that her hypoglycemic event may been treated old to being on more strict diet in the hospital setting then she is at home and I have advised patient to resume her previous diet that she was on and also her previously scheduled regimen of insulin and hypoglycemic medications. [] Discharge Diet: No Restrictions Discharge Activity: Return to Normal Activity Call your doctor if your incision/area has: Increased Pain/ Swelling, Increased Redness Call your doctor if you observe: Fever of 101 or Higher Home Medications: Medications to take at Discharge Amlodipine Besylate/Benazepril [Amlodipine-Benazepril 5-20 mg] 1 tab PO BID 09/20/17 Bisoprolol Fumarate/Hctz [Bisoprolol-Hctz 2.5-6.25 mg Tb] 1 tab PO BID 09/20/17 Empagliflozin [Jardiance] 25 mg PO DAILY 09/20/17 Folic Acid 0.4 mg PO DAILY@0800 09/20/17 Gabapentin [Neurontin] 600 mg PO QHS 09/20/17 Insulin Degludec [Tresiba Flextouch U-200] 80 units SQ DAILY 09/20/17 Insulin Regular, Human [Humulin R U-500 Kwikpen] 75 unit SQ TIDCM 09/20/17 Liraglutide [Victoza] 1.8 units SQ DAILY 09/20/17 Magnesium Oxide [Mag-Ox 400] 1 tab PO DAILY 09/20/17 Pioglitazone [Actos] 45 mg PO DAILY 09/20/17 Rosuvastatin Calcium 20 mg PO DAILY 09/20/17 Spironolactone [Aldactone] 50 mg PO DAILY 09/20/17 Acetaminophen [Tylenol Tablet] 500 mg PO Q4H PRN tablet 09/22/17 Cephalexin [Keflex] 500 mg PO Q6 #48 cap 09/22/17 Following Prescrptions Were Given to Patient: Cephalexin [Keflex] 500 mg PO Q6 #48 cap Primary Care Physician: Godfrey Holley MD [Primary Care Provider] - Within 2 Weeks Disposition: Home Minutes spent on discharge:: 32 Patient Condition:: Good Meaningful Use Info Meaningful Use Diagnoses (Choose all that apply): None applicable Code Visit Inpatient E AND M: 89693 Disch Hosp 09/22/17 1142 <Electronically signed by Godfrey Petersen DO> Date [facility] Signature (if applicable): Date CC: Godfrey Petersen DO; Godfrey Holley MD Signed DISCHARGE INSTRUCTION Observed: 09/22/2017 Status: F Source: [place] 11:39 AM [facility] REPOSITORY [facility] Medical Records Department [address] [place] [address] Instructions for Home/Discharge Instructions 09/22/17 1138 MR#: [id number] Acct: [id number] Name: BÁRBARA DE LA CRUZ Rep #: [id number] : 1945 71 From: Godfrey Petersen DO PCP: Godfrey Holley MD Status: ADM IN - Discharge Diagnoses Current Active Problems: Current Active and Chronic Problems Cellulitis of right leg (Acute) Diabetes mellitus type 2 in nonobese (Chronic) Dyslipidemia (Chronic) Diabetic neuropathy (Chronic) Hypertension (Chronic) You will use the following diet at home:: No restrictions Your food should be the consistency of: Regular Your liquids should be the consistency of: Regular/Thin Discharge Activity: Return to Normal Activity Call your doctor if your incision/area has: Increased Pain/ Swelling, Increased Redness Call your doctor if you observe: Fever of 101 or Higher Allergies/Adverse Reactions: Allergies No Known Allergies Allergy (Verified 09/20/17 06:40) Medications to take at Discharge Amlodipine Besylate/Benazepril [Amlodipine-Benazepril 5-20 mg] 1 tab PO BID 09/20/17 Bisoprolol Fumarate/Hctz [Bisoprolol-Hctz 2.5-6.25 mg Tb] 1 tab PO BID 09/20/17 Empagliflozin [Jardiance] 25 mg PO DAILY 09/20/17 Folic Acid 0.4 mg PO DAILY@0800 09/20/17 Gabapentin [Neurontin] 600 mg PO QHS 09/20/17 Insulin Degludec [Tresiba Flextouch U-200] 80 units SQ DAILY 09/20/17 Insulin Regular, Human [Humulin R U-500 Kwikpen] 75 unit SQ TIDCM 09/20/17 Liraglutide [Victoza] 1.8 units SQ DAILY 09/20/17 Magnesium Oxide [Mag-Ox 400] 1 tab PO DAILY 09/20/17 Pioglitazone [Actos] 45 mg PO DAILY 09/20/17 Rosuvastatin Calcium 20 mg PO DAILY 09/20/17 Spironolactone [Aldactone] 50 mg PO DAILY 09/20/17 Acetaminophen [Tylenol Tablet] 500 mg PO Q4H PRN tablet 09/22/17 Cephalexin [Keflex] 500 mg PO Q6 #48 cap 09/22/17 The following prescriptions were given: Cephalexin [Keflex] 500 mg PO Q6 #48 cap Primary Care Physician: Godfrey Holley MD [Primary Care Provider] - Within 2 Weeks Proposed Discharge Date: 09/22/17 09/22/17 1139 <Electronically signed by Godfrey Petersen DO> Date Godfrey Petersen DO CC: Godfrey Holley MD BEDSIDE GLUCOSE Collected: 09/22/2017 Status: F Source: [place] 11:24 AM [facility] REPOSITORY TYPE CODE TESTS RESULT OUT OF REFERENCE UNITS RANGE LAB L501.080 70-110 mg/dL High BEDSIDE GLU 201 Result Comment: MANAGEMENT OF PATIENT CARE PER NURSING PROTOCOL Performed By: #### L501.080 #### [facility] Point of Care [facility] [place] [address] BASIC METABOLIC Collected: 09/22/2017 Status: F Source: [place] PROFILE (BMP) 5:12 AM [facility] REPOSITORY TYPE CODE TESTS RESULT OUT OF RANGE REFERENCE UNITS LAB L501.0100 74-106 mg/dL Normal GLU 85 Result Comment: Please note revised GLUCOSE reference range effective 2017. LAB L501.1000 7-18 mg/dL High BUN 21 LAB L501.1100 0.55-1.02 mg/dL Low CREAT,SERUM 0.54 Result Comment: The validity of the calculated GFR AND GFRAA in patients over 70 years has not been determined. Clinical correlation is essential. LAB L501.1110 >60 mL/min Normal EST GFR 117 Result Comment: Non- GFR Calc LAB L501.1115 >60 mL/min Normal EST GFR - AA 142 Result Comment: GFR Calc LAB L501.1255 ml/min Normal Estimated CRCL 41.45 LAB L501.1300 10-20 RATIO High BUN/CRE 38.9 LAB L501.2200 8.5-10 mg/dL Low .1 CA 8.2 LAB L501.5300 136-14 mmol/L Normal 5 NA 140 LAB L501.5600 3.5-5. mmol/L Low 1 K 3.3 LAB L501.5900 98-107 mmol/L Normal CL 107 LAB L501.6100 21.0-3 mmol/L Normal 2.0 CO2 25.0 LAB L501.6200 5-15 Normal GAP 8 Performed By: #### L500.2500 #### [facility] [address] [place], [place], [address] CBC W/DIFF, AUTOMATED Collected: 09/22/2017 Status: C Source: [place] 5:12 AM [facility] REPOSITORY TYPE CODE TESTS RESULT OUT OF RANGE REFERENCE UNITS LAB L100.1000 4.4-11.0 K/mm3 High WBC 16.2 LAB L100.1200 4.2-5.4 M/mm3 Low RBC 3.87 LAB L100.1300 12.0-15.0 g/dl Low HGB 11.0 LAB L100.1400 37-47 % Low HCT 33.9 LAB L100.1500 81-99 fL Normal MCV 87.6 LAB L100.1600 27.0-32.0 pg Normal MCH 28.4 LAB L100.1700 32-36 g/gl Normal MCHC 32.4 LAB L100.1810 11.6-14.6 % Normal RDW CV 14.0 LAB L100.1820 35.1-43.9 fl High RDW SD 45.0 LAB L100.1900 150-450 K/mm3 Normal PLT 262 LAB L100.2000 6.2-12.0 fl Normal MPV 10.4 LAB L100.2100 47-70 % High NEUT% 79.8 LAB L100.2200 19-41 % Low LY% 8.5 LAB L100.2300 0-10 % Normal MONO% 9.9 LAB L100.2400 0-5 % Normal EO% 0.7 LAB L100.2500 0-1 % Normal BASO% 0.1 LAB L100.2550 0.0-0.9 % High IM GRAN % 1.000 Result Comment: IG% - Immature Granulocytes (promyelocytes, myelocytes and metamyelocytes) > 1% indicates that a LEFT SHIFT is Present. LAB L100.2620 2.0-7.7 X10 3/uL High Absolute Neut 12.9 LAB L100.2720 0.83-4.51 X10 3/ul Normal Absolute Lymph 1.38 LAB L100.4500 Normal SMEAR COMMENT SCANNED Result Comment: MONOCYTOSIS NOTED LAB L100.9900 Normal Reviewed PATH REV Result Comment: Neutrophilic leukocytosis. Clinical correlation necessary. Tao Moreau M.D. 09/23/17 AMENDED REPORT 09/23/17 1440 PATH REV previously reported as: December Performed By: #### L100.0100 #### [facility] [address] [place], [address] BEDSIDE GLUCOSE Collected: 09/22/2017 Status: F Source: [place] 2:04 AM [facility] REPOSITORY TYPE CODE TESTS RESULT OUT OF RANGE REFERENCE UNITS LAB L501.080 70-110 mg/dL Normal BEDSIDE GLU 96 Result Comment: MANAGEMENT OF PATIENT CARE PER NURSING PROTOCOL Performed By: #### L501.080 #### [facility] Point of Care [address] [place] [address] BEDSIDE GLUCOSE Collected: 09/21/2017 Status: F Source: BEN 10:14 PM [facility] REPOSITORY TYPE CODE TESTS RESULT OUT OF RANGE REFERENCE UNITS LAB L501.080 70-110 mg/dL Normal BEDSIDE GLU 87 Result Comment: MANAGEMENT OF PATIENT CARE PER NURSING PROTOCOL Performed By: #### L501.080 #### [facility] Point of Care [address] [place] [address] BEDSIDE GLUCOSE Collected: 09/21/2017 Status: F Source: BEN 9:38 PM [facility] REPOSITORY TYPE CODE TESTS RESULT OUT OF REFERENCE UNITS RANGE LAB L501.080 70-110 mg/dL Low BEDSIDE GLU 45 Result Comment: Snack Given MANAGEMENT OF PATIENT CARE PER NURSING PROTOCOL Performed By: #### L501.080 #### [facility] Point of Care [address] [place] [address] BEDSIDE GLUCOSE Collected: 09/21/2017 Status: F Source: BEN 4:22 PM [facility] REPOSITORY TYPE CODE TESTS RESULT OUT OF REFERENCE UNITS RANGE LAB L501.080 70-110 mg/dL High BEDSIDE GLU 163 Result Comment: MANAGEMENT OF PATIENT CARE PER NURSING PROTOCOL Performed By: #### L501.080 #### [facility] Point of Care [address] [place] [address] GLUCOSE Collected: 09/21/2017 Status: F Source: BEN 4:17 PM [facility] REPOSITORY Order Comment: Comments: lab backup for hyperglycemia TYPE CODE TESTS RESULT OUT OF RANGE REFERENCE UNITS LAB L501.0100 74-106 mg/dL Low GLU 48 Result Comment: Glucose result less than 50 mg/dL suggests HYPOGLYCEMIA. Please note revised GLUCOSE reference range effective 2017. Performed By: #### L501.0100 #### [facility] [address] [place], [address] MAGNESIUM Collected: 09/21/2017 Status: F Source: BEN 1:00 PM [facility] REPOSITORY TYPE CODE TESTS RESULT OUT OF RANGE REFERENCE UNITS LAB L501.5200 1.6-2.6 mg/dL Normal MG 2.2 Result Comment: Please note revised Magnesium reference range effective 2017. Performed By: #### L501.5200, L501.5600 #### [facility] [address] [place], [address] POTASSIUM Collected: 09/21/2017 Status: F Source: BEN 1:00 PM [facility] REPOSITORY TYPE CODE TESTS RESULT OUT OF RANGE REFERENCE UNITS LAB L501.5600 3.5-5.1 mmol/L Normal K 3.5 Performed By: #### L501.5200, L501.5600 #### [facility] [address] [place], [address] BEDSIDE GLUCOSE Collected: 09/21/2017 Status: F Source: BEN 11:13 AM [facility] REPOSITORY TYPE CODE TESTS RESULT OUT OF RANGE REFERENCE UNITS LAB L501.080 70-110 mg/dL Normal BEDSIDE GLU 91 Result Comment: MANAGEMENT OF PATIENT CARE PER NURSING PROTOCOL Performed By: #### L501.080 #### [facility] Point of Care [address] [place] [address] BEDSIDE GLUCOSE Collected: 09/21/2017 Status: F Source: BEN 7:36 AM [facility] REPOSITORY TYPE CODE TESTS RESULT OUT OF REFERENCE UNITS RANGE LAB L501.080 70-110 mg/dL High BEDSIDE GLU 132 Result Comment: MANAGEMENT OF PATIENT CARE PER NURSING PROTOCOL Performed By: #### L501.080 #### [facility] [place] [address] CBC W/DIFF, AUTOMATED Collected: 09/21/2017 Status: C Source: BEN 5:11 AM [facility] REPOSITORY TYPE CODE TESTS RESULT OUT OF RANGE REFERENCE UNITS LAB L100.1000 4.4-11.0 K/mm3 High WBC 19.0 LAB L100.1200 4.2-5.4 M/mm3 Low RBC 3.92 LAB L100.1300 12.0-15.0 g/dl Low HGB 11.4 LAB L100.1400 37-47 % Low HCT 33.9 LAB L100.1500 81-99 fL Normal MCV 86.5 LAB L100.1600 27.0-32.0 pg Normal MCH 29.1 LAB L100.1700 32-36 g/gl Normal MCHC 33.6 LAB L100.1810 11.6-14.6 % Normal RDW CV 13.5 LAB L100.1820 35.1-43.9 fl Normal RDW SD 41.3 LAB L100.1900 150-450 K/mm3 Normal PLT 255 LAB L100.2000 6.2-12.0 fl Normal MPV 10.8 LAB L100.2100 47-70 % High NEUT% 83.9 LAB L100.2200 19-41 % Low LY% 6.0 LAB L100.2300 0-10 % Normal MONO% 9.3 LAB L100.2400 0-5 % Normal EO% 0.1 LAB L100.2500 0-1 % Normal BASO% 0.1 LAB L100.2550 0.0-0.9 % Normal IM GRAN % 0.600 Result Comment: IG% - Immature Granulocytes (promyelocytes, myelocytes and metamyelocytes) > 1% indicates that a LEFT SHIFT is Present. LAB L100.2620 2.0-7.7 X10 3/uL High Absolute Neut 15.9 LAB L100.2720 0.83-4.51 X10 3/ul Normal Absolute Lymph 1.15 LAB L100.4500 Normal SMEAR COMMENT SCANNED Result Comment: SLIGHT MONOCYTOSIS NOTED LAB L100.9900 Normal Reviewed PATH REV Result Comment: Neutrophilic leukocytosis. Clinical correlation necessary. Tao Moreau M.D. 09/22/17 AMENDED REPORT 09/22/17 1032 PATH REV previously reported as: December aaliyah Performed By: #### L100.0100 #### [facility] [address] [place], [address] BASIC METABOLIC Collected: 09/21/2017 Status: F Source: [place] PROFILE ([facility]) 5:11 AM [facility] REPOSITORY TYPE CODE TESTS RESULT OUT OF RANGE REFERENCE UNITS LAB L501.0100 74-106 mg/dL High GLU 111 Result Comment: Fasting Glucose result from 100 to 125 mg/dL suggests IMPAIRED HOMEOSTASIS per A.D.A. criteria. Please note revised GLUCOSE reference range effective 2017. LAB L501.1000 7-18 mg/dL High BUN 28 LAB L501.1100 0.55-1.02 mg/dL Normal CREAT,SERUM 0.62 Result Comment: The validity of the calculated GFR AND GFRAA in patients over 70 years has not been determined. Clinical correlation is essential. LAB L501.1110 >60 mL/min Normal EST GFR 101 Result Comment: Non- GFR Calc LAB L501.1115 >60 mL/min Normal EST GFR - AA 122 Result Comment: GFR Calc LAB L501.1255 ml/min Normal Estimated CRCL 41.45 LAB L501.1300 10-20 RATIO High BUN/CRE 45.5 LAB L501.2200 8.5-10 mg/dL Normal .1 CA 8.5 LAB L501.5300 136-14 mmol/L Normal 5 NA 138 LAB L501.5600 3.5-5. mmol/L Low 1 K 2.9 LAB L501.5900 98-107 mmol/L Normal CL 104 LAB L501.6100 21.0-3 mmol/L Normal 2.0 CO2 24.0 LAB L501.6200 5-15 Normal GAP 10 Performed By: #### L500.2500 #### [facility] [address] [place], [address] BEDSIDE GLUCOSE Collected: 09/21/2017 Status: F Source: BEN 3:09 AM [facility] REPOSITORY TYPE CODE TESTS RESULT OUT OF RANGE REFERENCE UNITS LAB L501.080 70-110 mg/dL Normal BEDSIDE GLU 95 Result Comment: MANAGEMENT OF PATIENT CARE PER NURSING PROTOCOL Performed By: #### L501.080 #### [facility] Point of Care [address] [place] [address] BEDSIDE GLUCOSE Collected: 09/20/2017 Status: F Source: [place] 10:19 PM [facility] REPOSITORY TYPE CODE TESTS RESULT OUT OF RANGE REFERENCE UNITS LAB L501.080 70-110 mg/dL Normal BEDSIDE GLU 88 Result Comment: MANAGEMENT OF PATIENT CARE PER NURSING PROTOCOL Performed By: #### L501.080 #### [facility] Point of Care [address] [place] [address] BEDSIDE GLUCOSE Collected: 09/20/2017 Status: F Source: BEN 4:09 PM [facility] REPOSITORY TYPE CODE TESTS RESULT OUT OF REFERENCE UNITS RANGE LAB L501.080 70-110 mg/dL High BEDSIDE GLU 305 Result Comment: MANAGEMENT OF PATIENT CARE PER NURSING PROTOCOL Performed By: #### L501.080 #### [facility] Point of Care [address] [place] [address] HISTORY AND PHYSICAL Observed: 09/20/2017 Status: F Source: BEN EXAM 1:42 PM [facility] REPOSITORY [facility] Medical Records Department [address] [place] [address] History and Physical 09/20/17 0942 MR#: [id number] Acct: [id number] Name: BÁRBARA DE LA CRUZ Morena Rep #: [id number] : 1945 71 From: Robin Mcdowell MD PCP: Godfrey Holley MD Status: ADM IN Y Location: MS3 [id number] Problem List (1) Cellulitis of right leg Status: Acute (2) Diabetes mellitus type 2 in nonobese Status: Chronic (3) Dyslipidemia Status: Chronic (4) Diabetic neuropathy Status: Chronic (5) Hypertension Status: Chronic History of Present Illness Date of Admission: 09/20/17 Chief Complaint: Right leg pain and redness The patient is a 71 year old F with history of diabetes mellitus type 2 on multiple antidiabetic medications including long-acting insulin, Regular Insulin, Victoza, hypertension came to ER for right leg redness, pain and mild swelling consistent with right leg cellulitis for about 3 days. Patient denies fever, chills, sharp, vomiting headache or other systemic symptoms. It is started with a small lesion on the back of right leg, calf which she is grasped and now scabbed without skin opening/wound and then it spread to her whole right lower leg from knee to ankle. She denies any history of foot ulcer, osteomyelitis. She is on gabapentin possible diabetic neuropathy. [] In ED, she has leukocytosis with left shift, ESR 77 and MRSA negative. Glucose in BMP 376, A1c 8.7. Past Medical History Past Medical History (Chronic Problems): Chronic Problems Diabetes mellitus type 2 in nonobese (Chronic) Dyslipidemia (Chronic) Diabetic neuropathy (Chronic) Hypertension (Chronic) Allergies No Known Allergies Allergy (Verified 09/20/17 06:40) Home Medications: Ambulatory Orders Medication Instructions Recorded Amlodipine Besylate/Benazepril 1 tab PO BID 09/20/17 [Amlodipine-Benazepril 5-20 mg] Bisoprolol Fumarate/Hctz 1 tab PO BID 09/20/17 Smoking Status: Never smoker Review of Systems Constitutional: Denies: Chills, Fever, Weight Change HEENT: Denies: Head Aches, Sinus Congestion, Sinus Drainage Cardiovascular: Denies: Chest Pain, Palpitations Respiratory: Denies: Cough, Shortness of breath at rest, Sputum production Gastrointestinal: Denies: Abdominal Pain, Nausea, Vomiting Genitourinary: Denies: Dysuria Musculoskeletal: Denies: Joint Pain, Joint Tenderness Skin: Reports: Rash. Denies: Wounds Neurological: Denies: Numbness, Tingling, Focal weakness Psychiatric: Denies: Anxiety, Depression, Homicidal Ideations, Suicidal Ideations Hematologic/ Lymphatic: Denies: Easy Bruising, Easy Bleeding VTE Information - Inpt Only VTE Present on Admission: No VTE Mechan Device Prophylaxis: SCD's VTE Pharm Prophylaxis ordered?: Yes Patient Problems: Active and Suspected Problems Cellulitis of right leg (Acute) - Physical Exam General: Alert, Oriented x3, Cooperative HEENT: Atraumatic, PERRLA, EOMI, Normocephalic Oral: Dry Mucosa Neck: Supple, No JVD, Negative Carotid Bruits Lungs: Clear to auscultation, Normal air movement, No rhonchi, No wheeze Cardiovascular: Regular rate, Regular Rhythm, Normal S1, Normal S2, Murmur - Systolic murmur present over left lower sternal border Abdomen: Bowel Sounds Present, Soft, Non Tender, Non-Distended Extremities: Capillary Refill Less than 3 Seconds, Edema - Mild edema of right lower leg Skin: No breakdown, Rash Present - Maculopapular reddish rash present over right lower leg from right knee to ankle with a small scab, grayish in color at the right calf Musculoskeletal: No Tenderness to Palpation of Joints or Extremities Neurological: Cranial nerves II-XII grossly intact Psych/Mental Status: Normal Affect, Appropriate Vital Signs Temp Pulse Resp BP Pulse Ox 97.8 F 102 H 16 134/67 H 96 09/20/17 06:41 09/20/17 06:41 09/20/17 06:41 09/20/17 06:41 09/20/17 06:41 Oxygen Delivery Method Room Air Weight: 133 lb 13.129 oz Body Mass Index (BMI) 23.7 Laboratory Tests Past 24 Hrs WBC 21.3 H RBC 4.37 Hgb 12.6 Hct 37.8 MCV 86.5 MCH 28.8 MCHC 33.3 RDW 13.6 RDW Differential 42.8 Plt Count 229 Assessment/Plan Active and Suspected Problems Cellulitis of right leg (Acute) The patient is a 71 year old F with history of diabetes mellitus type 2 on multiple antidiabetic medications including long-acting insulin, Regular Insulin, Victoza, hypertension came to ER for right leg redness, pain and mild swelling consistent with right leg cellulitis for about 3 days. Patient denies fever, chills, sharp, vomiting headache or other systemic symptoms. It is started with a small lesion on the back of right leg, calf which she is grasped and now scabbed without skin opening/wound and then it spread to her whole right lower leg from knee to ankle. She denies any history of foot ulcer, osteomyelitis. She is on gabapentin possible diabetic neuropathy. [] In ED, she has leukocytosis with left shift, ESR 77 and MRSA negative. Glucose in BMP 376, A1c 8.7. 1. SIRS 1/4 (leukocytosis) WITH Right lower leg cellulitis most probably from folliculitis/scratching, possible Streptococcus: Patient is being admitted to the regular floor. Started on IV Unasyn in the ER and he changed to cefazolin. MRSA nasal screen is negative. IV fluid normal saline. Blood culture is ordered. 2. Diabetes mellitus type 2 complicated with diabetic neuropathy with hyperglycemia, uncontrolled: As mentioned above her blood sugar is uncontrolled. Continue Accu-Chek before meals and at bedtime and cover with NovoLog sliding scale. She is on pressure about 80 units subcui daily and 75 units regular insulin 3 times daily. 3. Other comorbidities include dyslipidemia, hypertension and possible chronic leg edema: Her home medications including rosuvastatin, spironolactone, amlodipine, benazepril and HCTZ resumed. DVT prophylaxis: Moderate risk: On Lovenox 40 mg subcu daily and bilateral SCDs. This note was generated with [employer] dictation software. Every effort was made to ensure accuracy, however computerized armored service technician mistakes may persist. Code Visit Inpatient E AND M: [id number] Init Hosp L3 09/20/17 1342 <Electronically signed by Robin Mcdowell MD> Date Robin Mcdowell MD Cosigner Signature: Date (if applicable) CC: Godfrey Holley MD; Robin Mcdowell MD Signed MRSA WOUND DNA BY Collected: 09/20/2017 Status: F Source: BEN PCR 11:58 AM [facility] REPOSITORY TYPE CODE TESTS RESULT OUT OF RANGE REFERENCE UNITS LAB L8200.1100 Negative Normal MRSA Negative RESULT LAB L8200.1150 Negative Normal SA RESULT NEGATIVE Performed By: #### L8200.1075 #### [facility] [place], [address] Observed: 09/20/2017 Status: F Source: BEN CULTURE, DEEP WOUND 11:58 AM [facility] REPOSITORY Gram Stain Gram Stain No White Blood Cells No organisms seen Wound Culture Penicillin is the drug of choice for Beta Streptococcal infections. For Penicillin allergic patients, Erythromycin may be used. ORGANISM 1: Streptococcus group A Amount Growth 2+ Cult, Anaerobic No anaerobic bacteria isolated. Performed By: #### M100.1500 #### [facility] [address] [address] [facility] [place], [address] Observed: 09/20/2017 Status: F Source: BEN CULTURE, BLOOD (WB) 11:50 AM [facility] REPOSITORY BC No growth in 5 days. Performed By: #### M200.1000 #### [facility] [address] [place], [address] Observed: 09/20/2017 Status: F Source: BEN CULTURE, BLOOD (WB) 11:45 AM [facility] REPOSITORY BC No growth in 5 days. Performed By: #### M200.1000 #### [facility] [address] [place], [address] BEDSIDE GLUCOSE Collected: 09/20/2017 Status: F Source: BEN 11:32 AM [facility] REPOSITORY TYPE CODE TESTS RESULT OUT OF REFERENCE UNITS RANGE LAB L501.080 70-110 mg/dL High BEDSIDE GLU 223 Result Comment: MANAGEMENT OF PATIENT CARE PER NURSING PROTOCOL Performed By: #### L501.080 #### [facility] Point of Care [address] [place] [address] EMERGENCY DEPARTMENT Observed: 09/20/2017 Status: F Source: BEN SUMMARY 9:38 AM [facility] REPOSITORY [facility] Medical Records Department [address] [place] [address] Emergency Department Summary 09/20/17 0700 MR#: [id number] Acct: [id number] Name: BÁRBARA DE LA CRUZ Rep #: [id number] : 1945 71 From: Jacob Gallardo MD PCP: Kishan MATIAS,Godfrey Status: REG ER - ER Visit Summary Date of Service: 09/20/17 Chief Complaint: Right leg pain History of Present Illness: The patient is a 71 F with a couple days of swelling and redness and warmth and pain in her right leg. Started posteriorly. Is really not hurting when she rests, but is worse when she walks on it. No recent long travel or immobilization/hospitalization. No known injury to her right leg. Sore in her right groin, but no fevers or other systemic symptoms. Physical Examination: Lacy appearing erythema to the right lower extremity, patchy, borders are not well circumscribed. It is warm compared with contralateral side and non-erythematous areas, and tender to palpation. There is no subcutaneous emphysema. There is mild swelling. There is no pitting edema. There is no lymphangitis. She does have some tender inguinal lymphadenopathy that extends into the medial proximal thigh. There are no abnormal skin changes here. There are no palpable cords. She is neurovascularly intact distally. At the area where she states it started, there is a small wound with a scab, there is no discharge or palpable abscess anywhere. Test Results: White blood count 21 with a strong leftward shift. No bandemia. Acute kidney injury compared with 1 month ago and hyperglycemia at 376. Emergency Department Course and Treatment: Patient states she has no idea how she obtained the small wound that appears to be healing on the posterior right lower extremity, but she agrees that that is where everything started, so that in addition to her hyperglycemia is likely the reason for the infection. I do not think this is a DVT. She states her blood sugars have been running around 200, plus or minus. She states there is a lot of fluctuation in her blood sugars. She is compliant with her medication. She is nontoxic, and not septic, but her labs are concerning. Given IV Unasyn [address] Patterson, prefers admission at this time. Discussed with hospitalist. Disposition: Admit Impression: Right lower extremity cellulitis Acute kidney injury Hyperglycemia due to type 2 diabetes mellitus This note was generated with [employer] dictation software. It may contain incorrect words, spelling, and punctuation that were not noted in review of the chart prior to signing ED Disposition - Plan for ED Patient: Disposition: Acute [facility] Chief Complaint: Cellulitis Prescriptions: Cephalexin 500 mg PO 4X/DAY #40 cap What to do if you have Problems For any increased pain, shortness of breath, bleeding, nausea or vomiting, chest pain, or any unexpected problems, contact your Primary Care Provider. Call [facility] ([phone]) or report to the closest Emergency Room. Call 911 if necessary. 09/20/17 0938 <Electronically signed by Jacob Gallardo MD> Date Jacob Gallardo MD Cosigner Signature (If Indicated): Date CC: Godfrey Holley MD BASIC METABOLIC Collected: 09/20/2017 Status: F Source: BEN PROFILE (BMP) 7:17 AM [facility] REPOSITORY TYPE CODE TESTS RESULT OUT OF RANGE REFERENCE UNITS LAB L501.0100 74-106 mg/dL High GLU 376 Result Comment: Glucose result greater than or equal to 200 mg/dL suggests DIABETES MELLITUS per A.D.A. criteria. Please note revised GLUCOSE reference range effective 2017. LAB L501.1000 7-18 mg/dL High BUN 30 LAB L501.1100 0.55-1.02 mg/dL High CREAT,SERUM 1.15 Result Comment: The validity of the calculated GFR AND GFRAA in patients over 70 years has not been determined. Clinical correlation is essential. LAB L501.1110 >60 mL/min Low EST GFR 49 Result Comment: Non- GFR Calc LAB L501.1115 >60 mL/min Low EST GFR - AA 59 Result Comment: GFR Calc LAB L501.1255 ml/min Normal Estimated CRCL 36.04 LAB L501.1300 10-20 RATIO High BUN/CRE 26.1 LAB L501.2200 8.5-10 mg/dL Normal .1 CA 9.3 LAB L501.5300 136-14 mmol/L Low 5 NA 134 LAB L501.5600 3.5-5. mmol/L Normal 1 K 3.5 LAB L501.5900 98-107 mmol/L Low CL 97 LAB L501.6100 21.0-3 mmol/L Low 2.0 CO2 20.0 LAB L501.6200 5-15 High GAP 17 Performed By: #### L500.2500 #### [facility] [address] [place], [address] CBC W/DIFF, AUTOMATED Collected: 09/20/2017 Status: F Source: BEN 7:17 AM [facility] REPOSITORY TYPE CODE TESTS RESULT OUT OF RANGE REFERENCE UNITS LAB L100.1000 4.4-11.0 K/mm3 High WBC 21.3 LAB L100.1200 4.2-5.4 M/mm3 Normal RBC 4.37 LAB L100.1300 12.0-15.0 g/dl Normal HGB 12.6 LAB L100.1400 37-47 % Normal HCT 37.8 LAB L100.1500 81-99 fL Normal MCV 86.5 LAB L100.1600 27.0-32.0 pg Normal MCH 28.8 LAB L100.1700 32-36 g/gl Normal MCHC 33.3 LAB L100.1810 11.6-14.6 % Normal RDW CV 13.6 LAB L100.1820 35.1-43.9 fl Normal RDW SD 42.8 LAB L100.1900 150-450 K/mm3 Normal PLT 229 LAB L100.2000 6.2-12.0 fl Normal MPV 10.9 LAB L100.2100 47-70 % High NEUT% 89.4 LAB L100.2200 19-41 % Low LY% 2.6 LAB L100.2300 0-10 % Normal MONO% 7.7 LAB L100.2400 0-5 % Normal EO% 0.0 LAB L100.2500 0-1 % Normal BASO% 0.0 LAB L100.2550 0.0-0.9 % Normal IM GRAN % 0.300 Result Comment: IG% - Immature Granulocytes (promyelocytes, myelocytes and metamyelocytes) > 1% indicates that a LEFT SHIFT is Present. LAB L100.2620 2.0-7.7 X10 3/uL High Absolute Neut 19.0 LAB L100.2720 0.83-4.51 X10 3/ul Low Absolute Lymph 0.55 LAB L100.4500 Normal SMEAR COMMENT SCANNED Performed By: #### L100.0100 #### [facility] [address] [place], [address] ERYTHROCYTE SED RATE Collected: 09/20/2017 Status: F Source: BEN 7:17 AM [facility] REPOSITORY TYPE CODE TESTS RESULT OUT OF RANGE REFERENCE UNITS LAB L102.0000 0-30 mm/hr High SED RATE 77 Performed By: #### L101.9900 #### [facility] [address] [place], [address] HEMOGLOBIN A1C Collected: 09/20/2017 Status: F Source: BEN 7:17 AM [facility] REPOSITORY TYPE CODE TESTS RESULT OUT OF RANGE REFERENCE UNITS LAB L501.9985 4.2-6.3 % High HGB A1C 8.7 Performed By: #### L501.9985 #### [facility] [address] [place], [address] ALLERGIES ALLERGIES DATE TYPE / CODE NAME / CODE REACTION SEVERITY SOURCE 09/20/2017 Drug No Known Unknown [facility] Allergy/416 Allergies/Q63092 Hospital 840319(SNOM 0388(RXNORM) Repository ED CT) Drug NO KNOWN [facility] Class/14998 ALLERGIES [facility] 1003(SNOMED Repository CT) ENCOUNTERS ENCOUNTERS ADMIT/DISCHARGE ACCOUNT ADMITTING ENCOUNTER LOCATION SOURCE NUMBER CLASS 08/20/2018 [id number] [facility] ing:MTLAB Repository 06/29/2018 [id number] [facility] ing:MFPLAB Repository 04/20/2018 [id number] [facility] ing:MTLAB Repository 12/25/2017 [id number] [facility] ing:MFPLAB Repository 11/11/2017/11/13/19 [id number] Ambulatory [address] Repository 11/03/2017/11/04/19 [id number] Ambulatory [address] Repository 09/20/2017/09/22/[id number] [facility], Inpatient [address] ing:CI4Pcab: Repository LO410Cgj: 1 09/20/2017 [id number] Jeremias, Ambulatory BMSBuilding:Marylou Kelly [facility] Repository 09/20/2017 [id number] Jeremias, Ambulatory BMSBuilding:Marylou Kelly [facility] Repository 09/20/[id number] [facility], Ambulatory BMSBuilding:Marylou Kelly [facility] Repository 09/20/2017/09/22/19 [id number] Ambulatory BMSBuilding:Marylou Contreras [address] [facility] Repository PAYERS PAYERS ENCOUNTER GUARANTOR PAYER SUBSCRIBER SOURCE 08/20/2018 BÁRBARA R Primary BÁRBARA R [place] [id number] Insurance:HUMANA KLINEDOB: Community [place] [employer] PPOPolicy [id number] Number: Repository [id number]: 330 [id number] [phone] () Date:[id number] [address]JH: 08/20/2018 Secondary NOT GIVENUNK [place] Insurance:SELF PAY [facility] Number: Effective Repository Date:2018-08-20 06/29/2018 BÁRBARA R Primary BÁRBARA R [place] [id number] Insurance:HUMANA KLINEDOB: Community [place] [employer] PPOPolicy [id number] Number: Repository [id number]: 330 [id number] [phone] () Date:[id number] [address]KD: 06/29/2018 Secondary NOT GIVENUNK [place] Insurance:SELF PAY [facility] Number: Effective Repository Date:2018-06-29 04/20/2018 BÁRBARA R Primary BÁRBARA R [place] [id number] Insurance:HUMANA KLINEDOB: Community [place] [employer] PPOPolicy [id number] Number: Repository [id number]: 330 [id number] [phone] () Date:[id number] [address]SX: 04/20/2018 Secondary NOT GIVENUNK Ben Insurance:SELF PAY [facility] Effective Rep[facility] Date:2018-04-20 12/25/2017 Bárbara R Primary Bárbara R Ben [id number] Insurance:HUMANA KlineDOB: Community [place] [employer] PPOPolicy [id number] [address] Number: Repository [address]Dtq: 330 [id number] [phone] () Date:[id number] [address] [address]TV: 12/25/2017 Secondary NOT GIVENUNK [place] Insurance:SELF PAY [facility] Number: Effective Repository Date:2017-12-25 09/20/2017 Bárbara R Primary Bárbara R [place] [id number] Insurance:HUMANA KlineDOB: Community [place] PPOPolicy [id number] [place] Number: Repository [id number]: (330 [id number] [phone] () Date:3340-12-04ZA [address] [address]SM: 09/20/2017 Secondary NOT GIVENUNK [place] Insurance:SELF PAY [facility] Number: Effective Repository Date:2017-09-20 09/20/2017 Bárbara R Primary Bárbara R Ben [id number] Insurance:HUMANA KlineDOB: Community [place] PPOPolicy [id number] [place] Number: Repository [address]Tzd: 330 [id number] [phone] () Date:2505-62-98QX [address] [address]RR: 09/20/2017 Secondary NOT GIVENUNK [place] Insurance:SELF PAY [facility] Number: Effective Repository Date:2017-09-20 09/20/2017 Bárbara R Primary Bárbara R [place] [id number] Insurance:HUMANA KlineDOB: Community [place] PPOPolicy [id number] Number: Repository [address]Ypo: [phone] [id number] [phone] (HP) Date:5753-80-29PS [address] [address]CI: 09/20/2017 Secondary NOT GIVENUNK [place] Insurance:SELF PAY [facility] Number: Effective Repository Date:2017-09-20 09/20/2017 Bárbara R Primary Bárbara R Ben [id number] Insurance:HUMANA KlineDOB: Community [place] PPOPolicy [id number] [place] Number: Repository [address]Qkm: (330 [id number] [phone] () Date:[id number] [address] [address]RX: 09/20/2017 Secondary NOT GIVENUNK [place] Insurance:SELF PAY [facility] Number: Effective Repository Date:2017-09-20 09/20/2017 Georgia R Primary Bárbara R Ben [id number] Insurance:HUMANA KlineDOB: Community [place] PPOPolicy [id number] [place] Number: Repository [id number]: (330 [id number] [phone] () Date:7904-66-34QD [address] [address]SO: 09/20/2017 Secondary NOT GIVENUNK [place] Insurance:SELF PAY [facility] Number: Effective Repository Date:2017-09-20
== END ==
PROVIDERS: Family Provider Family Medicine; PCP Family Medicine; Referring Provider Internal Medicine Endocrinology, Diabetes & Metabolism; Visit Provider Internal Medicine Endocrinology, Diabetes & Metabolism
DX: E11.29 Type 2 diabetes mellitus with other diabetic kidney complication (principal); E11.65 Type 2 diabetes mellitus with hyperglycemia
CPT/HCPCS: 36415; 80053; 80061; 83036

== ENCOUNTER → 2018-12-02 | Outpatient (CLI) | payer MEDICARE, SELFPAY ==
[2017-09-20 10:49] VITALS: BMI 22.8
[2018-12-02 17:34] LABS: Absolute Lymphocyte Count 2.56 X10^3/ul (0.83-4.51); Absolute Neutrophil Count 7.5 X10^3/uL (2.0-7.7); Basophil# 0.02 X10^3/uL; Basophil% 0.2 % (0-1); Eosinophil# 0.15 X10^3/uL; Eosinophils% 1.4 % (0-5); Hematocrit 44.9 % (37-47); Hemoglobin 15.1 g/dl (12.0-15.0); Lymphocyte # 2.56 X10^3/ul (4.0); Lymphocyte % 23.1 % (19-41); Mean Corp Hgb Conc 33.6 g/gl (32-36); Mean Corpuscular Hgb 28.3 pg (27.0-32.0); Mean Corpuscular Volume 84.2 fL (81-99); Mean Platelet Vol. 11.1 fl (6.2-12.0); Monocyte# 0.86 X10^3/uL; Monocyte% 7.8 % (0-10); Neutrophil # 7.46 X10^3/uL (2.7-7.7); Neutrophil % 67.2 % (47-70); Platelet Count 260 K/mm3 (150-450); RBC Distribution Width CV 13.2 % (11.6-14.6); RBC Distribution Width SD 40.4 fl (35.1-43.9); Red Blood Count 5.33 M/mm3 (4.2-5.4); White Blood Count 11.1 K/mm3 (4.4-11.0)
[2018-12-02 17:41] LABS: POSITIVE COUNT NO; POSITIVE DIFFERENTIAL NO; POSITIVE MORPHOLOGY NO
[2018-12-02 17:49] LABS: ALB/GLOB Ratio 1.2 RATIO (0.9-2.4); AST(SGOT) 14 U/L (15-37); Alanine Aminotransfer ALT/SGPT 20 U/L (13-56); Albumin, Serum 4.4 g/dL (3.2-5.0); Alkaline Phosphatase 156 U/L (45-117); Anion Gap 5 (5-15); BUN 16 mg/dL (7-18); BUN/Creat Ratio 18.5 RATIO (10-20); Calcium,Total 9.9 mg/dL (8.5-10.1); Chloride 102 mmol/L (98-107); Creatinine, Serum 0.86 mg/dL (0.55-1.02); EST Glomerular Filtration Rate 68 mL/min (>60); Est Glom Filt Rate - Afr Amer 82 mL/min (>60); Globulin 3.7 g/dL (2.2-4.2); Glucose 242 mg/dL (74-106); Protein, Total 8.1 g/dL (6.4-8.2); Sodium Level 136 mmol/L (136-145)
[2018-12-02 17:57] LABS: Hemoglobin A1c 9.7 % (4.2-6.3)
== END | disposition home or self-care (01) ==
LOC: MFPLAB 15:31
PROVIDERS: Family Provider Family Medicine; PCP Family Medicine; Referring Provider Family Medicine; Visit Provider Family Medicine
DX: E11.65 Type 2 diabetes mellitus with hyperglycemia (principal); E11.29 Type 2 diabetes mellitus with other diabetic kidney complication
CPT/HCPCS: 36415; 80053; 83036; 85025

== ENCOUNTER → 2018-12-16 07:57 | Outpatient (CLI) | payer MEDICARE, SELFPAY ==
[2017-09-20 10:49] VITALS: BMI 22.8
[2018-12-16 10:30] LABS: ALB/GLOB Ratio 0.9 RATIO (0.9-2.4); AST(SGOT) 18 U/L (15-37); Alanine Aminotransfer ALT/SGPT 24 U/L (13-56); Alkaline Phosphatase 150 U/L (45-117); Anion Gap 7 (5-15); BUN 18 mg/dL (7-18); BUN/Creat Ratio 17.5 RATIO (10-20); Calcium,Total 9.2 mg/dL (8.5-10.1); Chloride 103 mmol/L (98-107); Cholesterol 167 mg/dL (200); Creatinine, Serum 1.03 mg/dL (0.55-1.02); EST Glomerular Filtration Rate 56 mL/min (>60); Est Glom Filt Rate - Afr Amer 67 mL/min (>60); Globulin 4.3 g/dL (2.2-4.2); Glucose 358 mg/dL (74-106); High Density Lipoprotein 40 mg/dL; Potassium 3.8 mmol/L (3.5-5.1); Protein, Total 8.3 g/dL (6.4-8.2); Sodium Level 137 mmol/L (136-145); Triglycerides 275 mg/dL; Very Low Density Lipoprotein 55 mg/dL (5-40)
[2018-12-16 10:43] LABS: Hemoglobin A1c 10.7 % (4.2-6.3)
== END ==
PROVIDERS: Family Provider Family Medicine; PCP Family Medicine; Referring Provider Internal Medicine Endocrinology, Diabetes & Metabolism; Visit Provider Internal Medicine Endocrinology, Diabetes & Metabolism
DX: E11.29 Type 2 diabetes mellitus with other diabetic kidney complication (principal); E11.65 Type 2 diabetes mellitus with hyperglycemia
CPT/HCPCS: 36415; 80053; 80061; 83036

== ENCOUNTER → 2019-03-05 08:06 | Outpatient (CLI) | payer MEDICARE, SELFPAY ==
[2019-03-05 10:31] LABS: Hemoglobin A1c 10.6 % (4.2-6.3)
[2019-03-05 10:42] LABS: ALB/GLOB Ratio 0.9 RATIO (0.9-2.4); AST(SGOT) 18 U/L (15-37); Alanine Aminotransfer ALT/SGPT 23 U/L (13-56); Albumin, Serum 3.5 g/dL (3.2-5.0); Alkaline Phosphatase 130 U/L (45-117); Anion Gap 9 (5-15); BUN 14 mg/dL (7-18); BUN/Creat Ratio 17.7 RATIO (10-20); Calcium,Total 8.6 mg/dL (8.5-10.1); Chloride 104 mmol/L (98-107); Cholesterol 202 mg/dL (200); Creatinine, Serum 0.79 mg/dL (0.55-1.02); EST Glomerular Filtration Rate 75 mL/min (>60); Est Glom Filt Rate - Afr Amer 91 mL/min (>60); Glucose 235 mg/dL (74-106); High Density Lipoprotein 43 mg/dL; Potassium 3.5 mmol/L (3.5-5.1); Protein, Total 7.5 g/dL (6.4-8.2); Sodium Level 140 mmol/L (136-145); Thyroid Stim Hormone (TSH) 1.61 uIU/mL (0.358-3.74); Triglycerides 233 mg/dL; Very Low Density Lipoprotein 47 mg/dL (5-40)
[2019-03-05 10:44] LABS: Microalbumin:Creatinine Ratio 540.5 mg/g CRE (<30 mg/g CRE)
== END ==
PROVIDERS: Family Provider Family Medicine; PCP Family Medicine; Referring Provider Family Medicine; Visit Provider Family Medicine
DX: E11.29 Type 2 diabetes mellitus with other diabetic kidney complication (principal)
CPT/HCPCS: 36415; 80053; 80061; 82043; 82570; 83036; 84443

== ENCOUNTER → 2020-01-07 09:52 | Outpatient (CLI) | payer MEDICARE, SELFPAY ==
[2017-09-20 10:49] VITALS: BMI 22.8
[2020-01-07 12:32] LABS: Absolute Lymphocyte Count 1.88 X10^3/uL (0.83-4.51); Absolute Neutrophil Count 4.4 X10^3/uL (2.0-7.7); Basophil# 0.04 X10^3/uL; Basophil% 0.6 % (0-1); Eosinophils% 2.8 % (0-5); Hematocrit 44.6 % (37-47); Hemoglobin 14.8 g/dL (12.0-15.0); Lymphocyte # 1.88 X10^3/ul (4.0); Lymphocyte % 26.1 % (19-41); Mean Corp Hgb Conc 33.2 g/dL (32-36); Mean Corpuscular Hgb 29.7 pg (27.0-32.0); Mean Corpuscular Volume 89.4 fL (81-99); Mean Platelet Vol. 10.8 fl (6.2-12.0); Monocyte# 0.63 X10^3/uL; Monocyte% 8.8 % (0-10); NRBC Flagged by Analyzer 0 % (0-5); Neutrophil # 4.42 X10^3/uL (2.7-7.7); Neutrophil % 61.4 % (47-70); Platelet Count 239 K/mm3 (150-450); RBC Distribution Width CV 12.9 % (11.6-14.6); RBC Distribution Width SD 41.8 fl (35.1-43.9); Red Blood Count 4.99 M/mm3 (4.2-5.4); White Blood Count 7.2 K/mm3 (4.4-11.0)
[2020-01-07 13:15] LABS: ALB/GLOB Ratio 0.9 RATIO (0.9-2.4); AST(SGOT) 18 U/L (15-37); Alanine Aminotransfer ALT/SGPT 18 U/L (13-56); Albumin, Serum 3.6 g/dL (3.2-5.0); Alkaline Phosphatase 131 U/L (45-117); Anion Gap 5 (5-15); BUN 13 mg/dL (7-18); BUN/Creat Ratio 17.8 RATIO (10-20); Calcium,Total 9.1 mg/dL (8.5-10.1); Chloride 106 mmol/L (98-107); Creatinine, Serum 0.73 mg/dL (0.55-1.02); EST Glomerular Filtration Rate 82 mL/min (>60); Est Glom Filt Rate - Afr Amer 100 mL/min (>60); Globulin 3.9 g/dL (2.2-4.2); Glucose 213 mg/dL (74-106); Potassium 3.5 mmol/L (3.5-5.1); Protein, Total 7.5 g/dL (6.4-8.2); Sodium Level 138 mmol/L (136-145); Thyroid Stim Hormone (TSH) 1.51 uIU/mL (0.358-3.74)
[2020-01-07 13:18] LABS: Microalbumin:Creatinine Ratio 554.1 mg/g CRE (<30 mg/g CRE)
== END ==
PROVIDERS: PCP Family Medicine; Referring Provider Family Medicine; Visit Provider Family Medicine
DX: E11.29 Type 2 diabetes mellitus with other diabetic kidney complication (principal)
CPT/HCPCS: 80053; 82043; 82570; 84443; 85025

== ENCOUNTER → 2020-09-20 07:42 | Outpatient (CLI) | payer MEDICARE, SELFPAY ==
[2020-09-20 10:51] LABS: Hemoglobin A1c 12.9 % (3.8-5.6)
[2020-09-20 10:53] LABS: AST(SGOT) 16 U/L (15-37); Alanine Aminotransfer ALT/SGPT 25 U/L (13-56); Albumin, Serum 3.8 g/dL (3.2-5.0); Alkaline Phosphatase 147 U/L (45-117); Anion Gap 7 (5-15); BUN 20 mg/dL (7-18); BUN/Creat Ratio 19.4 RATIO (10-20); Calcium,Total 9.2 mg/dL (8.5-10.1); Chloride 102 mmol/L (98-107); Cholesterol 156 mg/dL (200); Creatinine, Serum 1.03 mg/dL (0.55-1.02); EST Glomerular Filtration Rate 55 mL/min (>60); Est Glom Filt Rate - Afr Amer 67 mL/min (>60); Glucose 321 mg/dL (74-106); High Density Lipoprotein 50 mg/dL; Potassium 3.5 mmol/L (3.5-5.1); Protein, Total 7.8 g/dL (6.4-8.2); Sodium Level 137 mmol/L (136-145); Thyroid Stim Hormone (TSH) 2.39 uIU/mL (0.358-3.74); Triglycerides 176 mg/dL; Very Low Density Lipoprotein 35 mg/dL (5-40)
== END ==
PROVIDERS: PCP Family Medicine; Referring Provider Internal Medicine Endocrinology, Diabetes & Metabolism; Visit Provider Internal Medicine Endocrinology, Diabetes & Metabolism
DX: E11.65 Type 2 diabetes mellitus with hyperglycemia (principal); E78.5 Hyperlipidemia, unspecified; E07.9 Disorder of thyroid, unspecified
CPT/HCPCS: 36415; 80053; 80061; 82043; 83036; 84443

== ENCOUNTER → 2021-01-22 11:23 | Outpatient (CLI) | payer MEDICARE, SELFPAY ==
[2017-09-20 10:49] VITALS: BMI 22.8
[2021-01-22 12:26] LABS: Absolute Lymphocyte Count 2.93 X10^3/uL (0.83-4.51); Absolute Neutrophil Count 6.5 X10^3/uL (2.0-7.7); Basophil# 0.06 X10^3/uL; Basophil% 0.6 % (0-1); Eosinophil# 0.27 X10^3/uL; Eosinophils% 2.5 % (0-5); Hematocrit 43.4 % (37-47); Hemoglobin 14.4 g/dL (12.0-15.0); Lymphocyte # 2.93 X10^3/ul (0.83-4.51); Lymphocyte % 27.4 % (19-41); Mean Corp Hgb Conc 33.2 g/dL (32-36); Mean Corpuscular Hgb 28.6 pg (27.0-32.0); Mean Corpuscular Volume 86.1 fL (81-99); Mean Platelet Vol. 10.5 fl (6.2-12.0); Monocyte# 0.95 X10^3/uL; Monocyte% 8.9 % (0-10); NRBC Flagged by Analyzer 0 % (0-5); Neutrophil # 6.45 X10^3/uL (2.7-7.7); Neutrophil % 60.2 % (47-70); Platelet Count 345 K/mm3 (150-450); RBC Distribution Width CV 12.9 % (11.6-14.6); Red Blood Count 5.04 M/mm3 (4.2-5.4); White Blood Count 10.7 K/mm3 (4.4-11.0)
[2021-01-22 12:38] LABS: Hemoglobin A1c 10.3 % (3.8-5.6)
[2021-01-22 12:42] LABS: Microalbumin,Random Urine 97.4 mg/L (NO RANGE EST.); Microalbumin:Creatinine Ratio 586.7 mg/g CRE (<30 mg/g CRE)
[2021-01-22 12:50] LABS: Vitamin B12 371 pg/mL (211-911)
[2021-01-22 13:43] LABS: AST(SGOT) 14 U/L (15-37); Alanine Aminotransfer ALT/SGPT 19 U/L (13-56); Alkaline Phosphatase 110 U/L (45-117); Anion Gap 7 (5-15); BUN 19 mg/dL (7-18); Calcium,Total 9.5 mg/dL (8.5-10.1); Chloride 103 mmol/L (98-107); Creatinine, Serum 0.73 mg/dL (0.55-1.02); EST Glomerular Filtration Rate 82 mL/min (>60); Est Glom Filt Rate - Afr Amer 99 mL/min (>60); Glucose 97 mg/dL (74-106); Potassium 3.6 mmol/L (3.5-5.1); Sodium Level 140 mmol/L (136-145)
== END ==
PROVIDERS: PCP Family Medicine; Visit Provider Family Medicine
DX: E11.29 Type 2 diabetes mellitus with other diabetic kidney complication (principal); E11.65 Type 2 diabetes mellitus with hyperglycemia; E11.43 Type 2 diabetes mellitus with diabetic autonomic (poly)neuropathy
CPT/HCPCS: 36415; 80053; 82043; 82570; 82607; 82746; 83036; 85025

== ENCOUNTER 2021-02-13 15:30 | Outpatient (RCR) | payer MEDICARE, SELFPAY ==
--- NOTE | 2021-01-24 14:32 | HP.PTEVAL_ITS ---
Patient's Visit Information MELCHOR DE LA CRUZ is a 75 year old F referred to Physical Therapy by Dr. Godfrey Holley MD with a diagnosis of Gait ataxia, diabetic neuropathy. Date of Evaluation: 01/24/21 Physical Therapist: Godfrey Zhou, SAÚL, OCS, CSCS - Visit Plan Frequency: 1x/Week Duration: 4-6 Weeks Plan: weekly x 4-6 for progression of HEP: Today given VOR seated, heel/toe raises, gastroc stretch. Next session please add TB ankle strength and foam stance ex as safety allows. Then general LE and core strength at counter after that. - Subjective Problems with balance. Maybe diabetes causes it. Sometimes I walk like I am drunk. No falls. No AD needed. Been off for a year or so. Some L knee pain intermittently. No dizzyness or spinning. Wavers when she stands. Activities normal, steps are tough with knee pain. Has railing. Dress /bathroom and lives marleny and doing OK. Not employed. Sleeps well. Speds day garddening adn cleaning house and visiting neighbors. Can still do them all but notices standing in one place is callenging. Has some neuropathy from DM. No regular exercises. - Objective Walsk with slightly neuropathic gait pattern but I, steps reciprocally with one rail. Trasnfers without UE I bed adn chair. reflexes 0/3 patella and achilles. sensation at deficit to gross light touch in distal LE ankles down. strength 3- DF, 3 inv/ev, 3+ PF B, knees flex and ext 4, hip abd, flex, ext 4-. coordination to reciprocal toe tap is at deifict, heel tap is OK, heel to thornton is OK. gastroc max tight at -4 AROM DF, HS min tight. - Balance Scores Functional Gait Assessment Score: 25 % Disability: 16.6700 CATSIB Score (Max score 120 seconds): 82 - Goals Goal 1:: I approp HEP to limit future balance problems and risk Goal Time Frame: 2-4 Weeks Goal 2:: Pt score 27/30 on FGA to limit fall risk Goal Time Frame: 4-6 Weeks Goal 3:: Pt feel 50% steadier overall and safer Goal Time Frame: 4-6 Weeks Goal 4:: romberg ec 15 seconds to show improved reliance on vestibular for balance. Goal Time Frame: 2-4 Weeks - Rehabilitation Potential Physical Therapy Diagnosis: imbalance from neuropathy and related deficits. Rehabilitation Potential: Fair - Anticipated Interventions Patient/Client Instruction: Educate patient on: Condition For the Purpose of:: To improve ability of physical actions for home/community/work/leisure, To improve gait and locomotor functions, To improve balance, To improve safety with gait Therapeutic Exercise to Include: Strength training, Balance training, Flexibilty training, Gait and locomotor training, Neuromotor development For the Purpose of:: To improve muscle performance and motor function, To increase tolerance to activity/condition/position, To improve ability of p hysical actions for home/community/work/leisure, To improve gait and locomotor functions, To improve balance, To improve safety with gait Thank you for the opportunity to evaluate your patient. For Medicare and Medicare HMO plans, please review the plan of care and approve it. It will need to be FAXED BACK to us at [phone] for Medicare purposes. For Medicare only, by signing this I certify the plan of care. Please let me know if there are questions or concerns regarding this plan of care. Physician Signature: _Date:
--- NOTE | 2021-02-13 15:52 | HP.PTDCSUM ---
It has been my pleasure to treat MELCHOR DE LA CRUZ referred by Dr. Godfrey Holley MD, with the diagnosis of Gait ataxia, diabetic neuropathy for a total of 4 visit(s). Discharge Date: 02/13/21 Please see the following information for a summary of their discharge status. Subjective: Exdrcises getting a little easier, no problems with them and they are challenging. Feels better balance. They take 25 minutes and do once per day, 5-6x/per week. To doctor in /july. Ready to be doone adn continue via HEP. % Improvement: 25 Objective/Function: FGA is 26 +1, walking well today and subjectively seeing slow steady improvement. Picked up exercises wella dn ready to be on own Goal 1:: I approp HEP to limit future balance problems and risk Goal Progress: Goal Met Goal 2:: Pt score 27/30 on FGA to limit fall risk Goal Progress: 26 Goal 3:: Pt feel 50% steadier overall and safer Goal Progress: 25% Goal 4:: romberg ec 15 seconds to show improved reliance on vestibular for balance. Goal Progress: 11 seconds. Plan: d/c Discharge Comments: HEP 3x/week If there are questions or concerns regarding this patient's physical therapy, please feel free to call me at [phone]. Thank you for the referral of this patient. Sincerely, Godfrey Zhou, DPT, OCS, CSCS
== END 2021-02-13 19:00 | disposition home or self-care (01) ==
LOC: PT 15:30
PROVIDERS: PCP Family Medicine; Referring Provider Family Medicine; Visit Provider Family Medicine
DX: R26.0 Ataxic gait (principal); E11.40 Type 2 diabetes mellitus with diabetic neuropathy, unspecified
CPT/HCPCS: 97110; 97162; 97164

== ENCOUNTER → 2021-06-05 08:05 | Outpatient (CLI) | payer MEDICARE, SELFPAY ==
[2021-06-05 10:09] LABS: Vitamin D,25 Hydroxy 22.2 ng/mL
[2021-06-05 10:20] LABS: ALB/GLOB Ratio 0.8 RATIO (0.9-2.4); AST(SGOT) 16 U/L (15-37); Alanine Aminotransfer ALT/SGPT 21 U/L (13-56); Albumin, Serum 3.7 g/dL (3.2-5.0); Alkaline Phosphatase 125 U/L (45-117); Anion Gap 4 (5-15); BUN 21 mg/dL (7-18); BUN/Creat Ratio 24.8 RATIO (10-20); Calcium,Total 9.4 mg/dL (8.5-10.1); Chloride 105 mmol/L (98-107); Cholesterol 191 mg/dL (200); Creatinine, Serum 0.85 mg/dL (0.55-1.02); EST Glomerular Filtration Rate 69 mL/min (>60); Est Glom Filt Rate - Afr Amer 84 mL/min (>60); Globulin 4.4 g/dL (2.2-4.2); Glucose 184 mg/dL (74-106); High Density Lipoprotein 54 mg/dL; Potassium 3.3 mmol/L (3.5-5.1); Protein, Total 8.1 g/dL (6.4-8.2); Sodium Level 138 mmol/L (136-145); Thyroid Stim Hormone (TSH) 2.53 uIU/mL (0.358-3.74); Triglycerides 146 mg/dL; Very Low Density Lipoprotein 29 mg/dL (5-40)
== END ==
PROVIDERS: PCP Family Medicine; Referring Provider Internal Medicine Endocrinology, Diabetes & Metabolism; Visit Provider Internal Medicine Endocrinology, Diabetes & Metabolism
DX: E11.65 Type 2 diabetes mellitus with hyperglycemia (principal); I10 Essential (primary) hypertension; E55.9 Vitamin D deficiency, unspecified
CPT/HCPCS: 36415; 80053; 80061; 82043; 82306; 84443

== ENCOUNTER 2021-09-04 07:04 | Outpatient (CLI) | payer MEDICARE, SELFPAY ==
[2021-09-04 10:23] LABS: Hemoglobin A1c 10.9 % (3.8-5.6)
[2021-09-04 10:24] LABS: ALB/GLOB Ratio 0.8 RATIO (0.9-2.4); AST(SGOT) 15 U/L (15-37); Alanine Aminotransfer ALT/SGPT 21 U/L (13-56); Albumin, Serum 3.5 g/dL (3.2-5.0); Alkaline Phosphatase 118 U/L (45-117); Anion Gap 7 (5-15); BUN 18 mg/dL (7-18); Calcium,Total 9.2 mg/dL (8.5-10.1); Chloride 107 mmol/L (98-107); Cholesterol 141 mg/dL (200); Creatinine, Serum 0.86 mg/dL (0.55-1.02); EST Glomerular Filtration Rate 68 mL/min (>60); Est Glom Filt Rate - Afr Amer 83 mL/min (>60); Globulin 4.3 g/dL (2.2-4.2); Glucose 177 mg/dL (74-106); High Density Lipoprotein 47 mg/dL; Potassium 3.1 mmol/L (3.5-5.1); Protein, Total 7.8 g/dL (6.4-8.2); Sodium Level 141 mmol/L (136-145); Triglycerides 164 mg/dL; Very Low Density Lipoprotein 33 mg/dL (5-40)
== END 2021-09-04 23:59 | disposition short-term general hospital (02) ==
PROVIDERS: PCP Family Medicine; Referring Provider Internal Medicine Endocrinology, Diabetes & Metabolism; Visit Provider Internal Medicine Endocrinology, Diabetes & Metabolism
DX: E11.65 Type 2 diabetes mellitus with hyperglycemia (principal); I10 Essential (primary) hypertension; E55.9 Vitamin D deficiency, unspecified; Z91.19 Patient's noncompliance with other medical treatment and regimen
CPT/HCPCS: 36415; 80053; 80061; 82043; 83036

== ENCOUNTER 2021-09-26 09:44 | Outpatient (CLI) | payer MEDICARE, SELFPAY ==
[2021-09-26 12:19] LABS: Absolute Lymphocyte Count 1.51 X10^3/uL (0.83-4.51); Absolute Neutrophil Count 5.1 X10^3/uL (2.0-7.7); Basophil# 0.03 X10^3/uL; Basophil% 0.4 % (0-1); Eosinophil# 0.26 X10^3/uL; Eosinophils% 3.5 % (0-5); Hematocrit 42.7 % (37-47); Lymphocyte # 1.51 X10^3/ul (0.83-4.51); Lymphocyte % 20.2 % (19-41); Mean Corp Hgb Conc 32.8 g/dL (32-36); Mean Corpuscular Hgb 28.6 pg (27.0-32.0); Mean Corpuscular Volume 87.1 fL (81-99); Mean Platelet Vol. 10.8 fl (6.2-12.0); Monocyte# 0.54 X10^3/uL; Monocyte% 7.2 % (0-10); NRBC Flagged by Analyzer 0 % (0-5); Neutrophil # 5.09 X10^3/uL (2.7-7.7); Neutrophil % 68.2 % (47-70); Platelet Count 270 K/mm3 (150-450); RBC Distribution Width CV 13.2 % (11.6-14.6); RBC Distribution Width SD 42.3 fl (35.1-43.9); White Blood Count 7.5 K/mm3 (4.4-11.0)
[2021-09-26 12:35] LABS: Vitamin B12 406 pg/mL (211-911)
[2021-09-26 12:58] LABS: Thyroid Stim Hormone (TSH) 1.26 uIU/mL (0.358-3.74)
== END 2021-09-26 23:59 | disposition home or self-care (01) ==
LOC: MTLAB 09:46
PROVIDERS: PCP Family Medicine; Referring Provider Family Medicine; Visit Provider Family Medicine
DX: R20.2 Paresthesia of skin (principal)
CPT/HCPCS: 36415; 82607; 82746; 84443; 85025

== ENCOUNTER → 2022-01-04 | Outpatient (CLI) | payer MEDICARE, SELFPAY ==
[2022-01-04 10:38] LABS: ALB/GLOB Ratio 0.9 RATIO (0.9-2.4); AST(SGOT) 22 U/L (15-37); Alanine Aminotransfer ALT/SGPT 32 U/L (13-56); Albumin, Serum 3.8 g/dL (3.2-5.0); Alkaline Phosphatase 97 U/L (45-117); Anion Gap 4 (5-15); BUN 24 mg/dL (7-18); Calcium,Total 9.7 mg/dL (8.5-10.1); Chloride 106 mmol/L (98-107); EST Glomerular Filtration Rate 57 mL/min (>60); Est Glom Filt Rate - Afr Amer 69 mL/min (>60); Globulin 4.4 g/dL (2.2-4.2); Glucose 161 mg/dL (74-106); Magnesium 2.5 mg/dL (1.6-2.6); Potassium 4.1 mmol/L (3.5-5.1); Protein, Total 8.2 g/dL (6.4-8.2); Sodium Level 138 mmol/L (136-145)
[2022-01-04 10:42] LABS: Syphilis Antibodies Non-reactive
[2022-01-09 21:02] LABS: Arsenic 7245 < 1 ug/L (0-9); Lead, Blood < 1 ug/dL (0-4); Mercury, Blood 85324 < 1.0 ug/L (0.0-14.9)
== END | disposition home or self-care (01) ==
LOC: MFPLAB 08:42
PROVIDERS: PCP Family Medicine; Visit Provider Family Medicine
DX: R20.2 Paresthesia of skin (principal); E87.6 Hypokalemia; Z11.3 Encounter for screening for infections with a predominantly sexual mode of transmission
CPT/HCPCS: 36415; 80053; 82175; 83655; 83735; 83825; 86780

== ENCOUNTER → 2022-04-22 | Outpatient (CLI) | payer MEDICARE, SELFPAY ==
[2022-04-22 10:40] LABS: PTHIN 60.1 pg/mL (18.4-80.1)
[2022-04-22 10:43] LABS: Vitamin D,25 Hydroxy 21.8 ng/mL
[2022-04-22 10:49] LABS: Hemoglobin A1c 7.1 % (3.8-5.6)
[2022-04-22 10:55] LABS: ALB/GLOB Ratio 0.9 RATIO (0.9-2.4); AST(SGOT) 20 U/L (15-37); Alanine Aminotransfer ALT/SGPT 20 U/L (13-56); Albumin, Serum 3.6 g/dL (3.2-5.0); Alkaline Phosphatase 104 U/L (45-117); Anion Gap 7 (5-15); BUN 20 mg/dL (7-18); BUN/Creat Ratio 26.1 RATIO (10-20); Calcium,Total 9.3 mg/dL (8.5-10.1); Chloride 108 mmol/L (98-107); Cholesterol 152 mg/dL (200); Creatinine, Serum 0.76 mg/dL (0.55-1.02); EST Glomerular Filtration Rate 78 mL/min (>60); Est Glom Filt Rate - Afr Amer 94 mL/min (>60); Globulin 4.1 g/dL (2.2-4.2); Glucose 157 mg/dL (74-106); High Density Lipoprotein 40 mg/dL; Magnesium 2.1 mg/dL (1.6-2.6); Phosphorus 2.6 mg/dL (2.5-4.9); Potassium 3.7 mmol/L (3.5-5.1); Protein, Total 7.7 g/dL (6.4-8.2); Sodium Level 143 mmol/L (136-145); Thyroid Stim Hormone (TSH) 2.07 uIU/mL (0.358-3.74); Triglycerides 177 mg/dL; Very Low Density Lipoprotein 35 mg/dL (5-40)
[2022-04-22 11:33] LABS: Microalbumin:Creatinine Ratio 857.1 mg/g CRE (<30 mg/g CRE)
== END | disposition home or self-care (01) ==
PROVIDERS: PCP Family Medicine; Referring Provider Internal Medicine Endocrinology, Diabetes & Metabolism; Visit Provider Internal Medicine Endocrinology, Diabetes & Metabolism
DX: E11.65 Type 2 diabetes mellitus with hyperglycemia (principal); I10 Essential (primary) hypertension; E55.9 Vitamin D deficiency, unspecified; Z91.19 Patient's noncompliance with other medical treatment and regimen
CPT/HCPCS: 36415; 80053; 80061; 82043; 82306; 82570; 83036; 83735; 83970; 84100; 84443

== ENCOUNTER → 2022-08-01 | Outpatient (CLI) | payer MEDICARE, SELFPAY ==
[2022-08-01 10:42] LABS: ALB/GLOB Ratio 0.9 RATIO (0.9-2.4); AST(SGOT) 21 U/L (15-37); Alanine Aminotransfer ALT/SGPT 25 U/L (13-56); Albumin, Serum 3.6 g/dL (3.2-5.0); Alkaline Phosphatase 129 U/L (45-117); Anion Gap 7 (5-15); BUN 20 mg/dL (7-18); Calcium,Total 9.1 mg/dL (8.5-10.1); Chloride 107 mmol/L (98-107); Creatinine, Serum 1.05 mg/dL (0.55-1.02); EST Glomerular Filtration Rate 54 mL/min (>60); Est Glom Filt Rate - Afr Amer 65 mL/min (>60); Globulin 3.8 g/dL (2.2-4.2); Glucose 267 mg/dL (74-106); Potassium 3.4 mmol/L (3.5-5.1); Protein, Total 7.4 g/dL (6.4-8.2); Sodium Level 140 mmol/L (136-145)
[2022-08-01 10:46] LABS: Vitamin D,25 Hydroxy 24.6 ng/mL
== END | disposition home or self-care (01) ==
LOC: MTLAB 09:16
PROVIDERS: PCP Family Medicine; Referring Provider Internal Medicine Endocrinology, Diabetes & Metabolism; Visit Provider Internal Medicine Endocrinology, Diabetes & Metabolism
DX: E11.65 Type 2 diabetes mellitus with hyperglycemia (principal); I10 Essential (primary) hypertension; E55.9 Vitamin D deficiency, unspecified; Z91.199 Patient's noncompliance with other medical treatment and regimen due to unspecified reason
CPT/HCPCS: 36415; 80053; 82043; 82306; 83036

== ENCOUNTER → 2022-10-31 | Outpatient (CLI) | payer MEDICARE, SELFPAY ==
[2022-10-31 10:28] LABS: ALB/GLOB Ratio 0.9 RATIO (0.9-2.4); AST(SGOT) 29 U/L (15-37); Alanine Aminotransfer ALT/SGPT 37 U/L (13-56); Albumin, Serum 3.7 g/dL (3.2-5.0); Alkaline Phosphatase 113 U/L (45-117); Anion Gap 7 (5-15); BUN 22 mg/dL (7-18); BUN/Creat Ratio 22.5 RATIO (10-20); Calcium,Total 9.5 mg/dL (8.5-10.1); Chloride 105 mmol/L (98-107); Cholesterol 149 mg/dL (200); Creatinine, Serum 0.98 mg/dL (0.55-1.02); EST Glomerular Filtration Rate 58 mL/min (>60); Est Glom Filt Rate - Afr Amer 71 mL/min (>60); Globulin 4.3 g/dL (2.2-4.2); Glucose 221 mg/dL (74-106); High Density Lipoprotein 45 mg/dL; Potassium 3.9 mmol/L (3.5-5.1); Sodium Level 140 mmol/L (136-145); Thyroid Stim Hormone (TSH) 3.41 uIU/mL (0.358-3.74); Triglycerides 174 mg/dL; Very Low Density Lipoprotein 35 mg/dL (5-40)
[2022-10-31 10:30] LABS: Vitamin D,25 Hydroxy 32.8 ng/mL
[2022-10-31 10:31] LABS: Hemoglobin A1c 9.5 % (3.8-5.6)
== END | disposition home or self-care (01) ==
LOC: MTLAB 07:07
PROVIDERS: PCP Family Medicine; Referring Provider Internal Medicine Endocrinology, Diabetes & Metabolism; Visit Provider Internal Medicine Endocrinology, Diabetes & Metabolism
DX: E11.65 Type 2 diabetes mellitus with hyperglycemia (principal); I10 Essential (primary) hypertension; E55.9 Vitamin D deficiency, unspecified
CPT/HCPCS: 36415; 80053; 80061; 82306; 83036; 84443

== ENCOUNTER → 2023-04-24 | Outpatient (CLI) | payer MEDICARE, SELFPAY ==
[2023-04-24 10:43] LABS: ALB/GLOB Ratio 0.9 RATIO (0.9-2.4); AST(SGOT) 22 U/L (15-37); Alanine Aminotransfer ALT/SGPT 33 U/L (13-56); Albumin, Serum 3.8 g/dL (3.2-5.0); Alkaline Phosphatase 111 U/L (45-117); Anion Gap 4 (5-15); BUN 19 mg/dL (7-18); BUN/Creat Ratio 19.3 RATIO (10-20); Calcium,Total 9.2 mg/dL (8.5-10.1); Chloride 110 mmol/L (98-107); Creatinine, Serum 0.98 mg/dL (0.55-1.02); EST Glomerular Filtration Rate 58 mL/min (>60); Est Glom Filt Rate - Afr Amer 70 mL/min (>60); Globulin 4.1 g/dL (2.2-4.2); Glucose 108 mg/dL (74-106); Potassium 3.6 mmol/L (3.5-5.1); Protein, Total 7.9 g/dL (6.4-8.2); Sodium Level 142 mmol/L (136-145)
[2023-04-24 10:47] LABS: Hemoglobin A1c 8.7 % (3.8-5.6)
[2023-04-24 11:13] LABS: Microalbumin:Creatinine Ratio 513.7 mg/g CRE (<30 mg/g CRE)
== END | disposition home or self-care (01) ==
LOC: MTLAB 07:13
PROVIDERS: PCP Family Medicine; Visit Provider Internal Medicine Endocrinology, Diabetes & Metabolism
DX: E11.65 Type 2 diabetes mellitus with hyperglycemia (principal); E55.9 Vitamin D deficiency, unspecified; I10 Essential (primary) hypertension
CPT/HCPCS: 36415; 80053; 82043; 82570; 83036

== ENCOUNTER → 2023-08-13 | Outpatient (CLI) | payer MEDICARE, SELFPAY ==
--- OUTSIDE RECORDS SUMMARY | 2023-08-13 09:41 | XMS RPT_ITS | CCD ---
Author Name Unknown Address [address] [place] [address] Organization [facility] Care Team Providers Care Supervising Architect Name Role Phone Nurys Holley MD Primary Care Provider NURYS HOLLEY Referring Unavailable NURYS HOLLEY Primary Care Unavailable Nurys Holley MD Primary Care Provider [phone] Medications Completed/Discontinued Medications Medication Drug Class(es) Dates Sig (Normalized) Sig (Original) amLODIPine 5 mg / benazepril hydrochloride 20 mg oral capsule (2 sources) Dihydropyridine Calcium Channel Harsh, Angiotensin Converting Enzyme Inhibitor take 1 capsule by mouth twice daily amLODIPine-benaze pril (LOTREL) 5-20 mg per capsule Take 1 capsule by mouth twice daily. 0 Active Problems Active Problems Problem Classification Problem Date Documented Da te Episodic/Chronic Cancer of breast (4 sources) Malignant tumor of breast ; Translations: [Malignant neoplasm of unspecified site of unspecified female breast] Onset: 08-26-2011 08-26-2011 Chronic Nutritional deficiencies (2 sources) Vitamin D deficiency; Translations: [Vitamin D deficiency, unspecified] Onset: 11-14-2011 11-14-2011 Chronic Past or Other Problems Problem Classification Problem Date Documented Da te Episodic/Chronic Other screening for suspected conditions (not mental disorders or infectious disease) (2 sources) Patient encounter status; Translations: [Encounter for screening for malignant neoplasm of colon] Onset: 10-23-2011 10-23-2011 Episodic Residual codes; unclassified (2 sources) Estrogen receptor positive tumor; Translations: [Estrogen receptor positive status [ER+]] Onset: 10-21-2011 10-21-2011 Episodic Results Test Name Value Interpretation Reference Range Facil ity Encounters Encounter Date Encounter Type Care Provider Facility Start: 11-25-2022 Documentation procedure Mammog lisy Coordinator [facility] Start: 11-25-2022 Letter encounter Mammography Coordinator [facility] Department Start: 11-25-2022 End: 11-25-2022 ambulatory NURYS HOLLEY Facility:[facility] Start: 11-25-2022 End: 11-25-2022 Subsequent hospital visit by physician Screen Mammo [facility] Mammogram Procedures Date Procedure Procedure Detail Performing Clinician Start: 11-25-2022 UBALDO SCREENING W VLAD Cc f Provider Plan of Treatment Date Care Activity Detail Author Start: 11-21-2032 Urine microalbumin profile DTa P,Tdap,Td Vaccine (2 - Td or Tdap) [facility] Start: 04-04-2023 Influenza vaccination [facility] Start: 08-04-2022 ADVANCE DIRECTIVE DISCUSSION ADVANCE DIRECTIVE DISCUSSION [facility] Start: 08-04-2022 DEPRESSION ASSESSMENT DEPRESSION ASS ESSMENT [facility] Start: 10-20-2014 DIABETES SCREEN DIABETES SCREEN [facility] Start: 10-20-2014 Diabetes Screening Diabetes Screenin g [facility] Start: 12-20-2008 BONE DENSITY BONE DENSITY [facility] Start: 12-20-2008 Bone Density Screening Bone Density Screening [facility] Start: 12-20-2008 PNEUMOCOCCAL: 65+ (1 - PCV) PNEUMOCOCCAL: 65+ (1 - PCV) [facility] Start: 2003 RSV Vaccine (1 - 1-d ose 60+ series) RSV Vaccine (1 - 1-dose 60+ series) [facility] Start: 12-20-1993 SHINGRIX VACCINE (1 of 2) CARY GRIX VACCINE (1 of 2) [facility] Start: 12-20-1962 Urine microalbumin profile DTAP,TDAP ,TD (1 - Tdap) [facility] Start: 12-20-1961 HEPATITIS C SCREENING HEPATITIS C SC KISHORE [facility] Start: 06-22-1944 COVID-19 VACCINE (#1) COVID-19 VACCI NE (#1) [facility] Immunizations Immunization Date Immunization Notes Care Provider Pk senior 05-06-2019 influenza virus vacc ine, unspecified formulation Screen Wstr [facility] Payers Date Payer Category Payer Medicare HUMANA MEDICARE HU[employer]NA MEDICARE PPO [id number] 2019-Present [phone] [place] [address] PPO 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 Author Type: Technologist Type: Progress Notes Filed: 11/25/2022 11:23 AM Note Text: Radiology Service Progress Note PATIENT NAME: Bárbara Herzog DATE OF SERVICE: November 25, 2022 TIME: 11:23 AM PATIENT IDENTITY VERIFICATION COMPLETED USING TWO (2) IDENTIFIERS: Name and Date of confirmed by patient verbally. FALL SCREENING: Has the patient had 2 falls in the last year or 1 fall with injury or currently using an Ambulatory Assistive Device (Walker, Cane, Wheelchair, Crutches, etc.)? No PATIENT GENDER DATA: Female. status: : No status: NO. PATIENT RELEVANT IMPLANT DATA REVIEWED: Not Applicable RADIOLOGY DEPARTMENT: Mammography PERIPHERAL IV DATA: Not applicable SIGNED BY: RT Claudine(R) November 25, 2022 11:23 AM [facility] Note 11-25-2022 Letter - Mammography Coordinator - 11/25/2022 12:44 PM EDT Note Date & Type Note Facility 11-25-2022 Miscellaneous Notes Formattin g of this note might be different from the original. November 26, 2022 PID: [id number] Bárbara Herzog [address] [place] [address] Dear Ms. Herzog, We are pleased to inform you that the results of your recent breast imaging exam on 11/25/2022 are normal. Your mammogram demonstrates that you [...] report will be kept on file at [facility] as part of your permanent medical record and are available for your continuing care. Thank you for allowing us to help in meeting your health care needs. Sincerely, Dr. Harper Interpreting Radiologist [facility] (Normal over 40) documented in this encounter [facility] History of Present illness Narrative 11-25-2022 Deedee Franklin RT(R) - 11/25/2022 11:30 AM EDT Note Date & Type Note Facility 11-25-2022 History of Presen t illness Narrative Radiology Service Progress Note PATIENT NAME: Bárbara Herzog DATE OF SERVICE: November 25, 2022 TIME: 11:23 AM PATIENT IDENTITY VERIFICATION COMPLETED USING TWO (2) IDENTIFIERS: Name and Date of confirmed by patient verbally. FALL SCREENING: Has the patient had 2 falls in the last year or 1 fall with injury or currently using an Ambulatory Assistive Device (Walker, Cane, Wheelchair, Crutches, etc.)? No PATIENT GENDER DATA: Female. status: : No status: NO. PATIENT RELEVANT IMPLANT DATA REVIEWED: Not Applicable RADIOLOGY DEPARTMENT: Mammography PERIPHERAL IV DATA: Not applicable SIGNED BY: RT Claudine(R) November 25, 2022 11:23 AM documented in this encounter [facility] History of Past illness Narrative 08-14-2011 Note Date & Type Note Facility documented as of this encounter (statuses as of 11/27/2022) [facility] History of Past illness Narrative 08-14-2011 Note Date & Type Note Facility documented as of this encounter (statuses as of 06/08/2023) [facility] Summary Purpose Family History No Family History Records Found Advance Directives No Advanced Directives Records Found Additional Source Comments Source Comments (unrecognize d section and content) In the event this informatio n is protected by the Federal Confidentiality of Alcohol and Drug Abuse Patient Records regulations: The Federal rules restrict any use of the information to criminally investigate or prosecute any alcohol or drug abuse patient.[facility] the event this information is protected by the Federal Confidentiality of Alcohol and Drug Abuse Patient Records regulations: The Federal rules restrict any use of the information to criminally investigate or prosecute any alcohol or drug abuse patient.[facility] Care Teams (unrecognized sec tion and content) Supervising Architect Relationship Specialty Start Date End Date Nurys Holley MD PCP - General Family Medicine 08/07/11 INFORMATION SOURCE (unrecogn ized section and content) FOR RECORDS PERTAINING TO PATIENTS WHO ARE OR HAVE BEEN ENROLLED IN A CHEMICAL DEPENDENCY/SUBSTANCEABUSE PROGRAM, SOME INFORMATION MAY BE OMITTED. This clinical summary was aggregated from multiple sources. Caution should be exercised in using it in the provision of clinical care. This summary normalizes information from multiple sources, and as a consequence, information in this document may materially change the coding, format and clinical context of patient data. In addition, data may be omitted in some cases. CLINICAL DECISIONS SHOULD BE BASED ON THE PRIMARY CLINICAL RECORDS. [facility]. provides no warranty or guarantee of the accuracy or completeness of information in this document.
[2023-08-13 11:12] LABS: ALB/GLOB Ratio 0.8 RATIO (0.9-2.4); AST(SGOT) 18 U/L (15-37); Alanine Aminotransfer ALT/SGPT 23 U/L (13-56); Albumin, Serum 3.6 g/dL (3.2-5.0); Alkaline Phosphatase 109 U/L (45-117); Anion Gap 5 (5-15); BUN 31 mg/dL (7-18); BUN/Creat Ratio 24.8 RATIO (10-20); Calcium,Total 9.9 mg/dL (8.5-10.1); Chloride 108 mmol/L (98-107); Cholesterol 115 mg/dL (200); Creatinine, Serum 1.25 mg/dL (0.55-1.02); EST Glomerular Filtration Rate 44 mL/min (>60); Est Glom Filt Rate - Afr Amer 53 mL/min (>60); Globulin 4.4 g/dL (2.2-4.2); Glucose 175 mg/dL (74-106); High Density Lipoprotein 40 mg/dL; Potassium 3.9 mmol/L (3.5-5.1); Sodium Level 141 mmol/L (136-145); Thyroid Stim Hormone (TSH) 2.92 uIU/mL (0.358-3.74); Triglycerides 157 mg/dL; Very Low Density Lipoprotein 31 mg/dL (5-40)
[2023-08-13 12:13] LABS: Microalbumin:Creatinine Ratio 254.4 mg/g CRE (<30 mg/g CRE)
== END | disposition home or self-care (01) ==
PROVIDERS: PCP Family Medicine; Referring Provider Internal Medicine Endocrinology, Diabetes & Metabolism; Visit Provider Internal Medicine Endocrinology, Diabetes & Metabolism
DX: E11.65 Type 2 diabetes mellitus with hyperglycemia (principal); I10 Essential (primary) hypertension
CPT/HCPCS: 36415; 80053; 80061; 82043; 82570; 83036; 84443

== ENCOUNTER → 2023-12-17 | Outpatient (CLI) | payer MEDICARE, SELFPAY ==
[2023-12-17 12:57] LABS: Vitamin D,25 Hydroxy 45.9 ng/mL
[2023-12-17 13:42] LABS: Hemoglobin A1c 7.6 % (3.8-5.6)
[2023-12-17 14:20] LABS: Microalbumin:Creatinine Ratio 931.7 mg/g CRE (<30 mg/g CRE)
[2023-12-17 14:49] LABS: ALB/GLOB Ratio 0.9 RATIO (0.9-2.4); AST(SGOT) 19 U/L (15-37); Alanine Aminotransfer ALT/SGPT 22 U/L (13-56); Albumin, Serum 3.8 g/dL (3.2-5.0); Alkaline Phosphatase 100 U/L (45-117); Anion Gap 6 (5-15); BUN 23 mg/dL (7-18); BUN/Creat Ratio 23.1 RATIO (10-20); Calcium,Total 9.3 mg/dL (8.5-10.1); Chloride 109 mmol/L (98-107); Cholesterol 144 mg/dL (200); EST Glomerular Filtration Rate 57 mL/min (>60); Est Glom Filt Rate - Afr Amer 69 mL/min (>60); Globulin 4.4 g/dL (2.2-4.2); Glucose 201 mg/dL (74-106); High Density Lipoprotein 44 mg/dL; Potassium 3.8 mmol/L (3.5-5.1); Protein, Total 8.2 g/dL (6.4-8.2); Sodium Level 140 mmol/L (136-145); Thyroid Stim Hormone (TSH) 1.23 uIU/mL (0.358-3.74); Triglycerides 193 mg/dL; Very Low Density Lipoprotein 39 mg/dL (5-40)
== END | disposition home or self-care (01) ==
LOC: MTLAB 10:21
PROVIDERS: PCP Family Medicine; Referring Provider Internal Medicine Endocrinology, Diabetes & Metabolism; Visit Provider Internal Medicine Endocrinology, Diabetes & Metabolism
DX: E11.65 Type 2 diabetes mellitus with hyperglycemia (principal); I10 Essential (primary) hypertension; Z91.199 Patient's noncompliance with other medical treatment and regimen due to unspecified reason
CPT/HCPCS: 36415; 80053; 80061; 82043; 82306; 82570; 83036; 84443

== ENCOUNTER → 2024-03-22 | Outpatient (CLI) | payer MEDICARE, SELFPAY ==
[2024-03-22 10:29] LABS: Vitamin D,25 Hydroxy 45.9 ng/mL
[2024-03-22 10:39] LABS: Hemoglobin A1c 7.1 % (3.8-5.6)
[2024-03-22 10:51] LABS: ALB/GLOB Ratio 0.9 RATIO (0.9-2.4); AST(SGOT) 19 U/L (15-37); Alanine Aminotransfer ALT/SGPT 20 U/L (13-56); Albumin, Serum 3.7 g/dL (3.2-5.0); Alkaline Phosphatase 104 U/L (45-117); Anion Gap 5 (5-15); BUN 17 mg/dL (7-18); BUN/Creat Ratio 18.8 RATIO (10-20); Calcium,Total 9.4 mg/dL (8.5-10.1); Chloride 107 mmol/L (98-107); Cholesterol 140 mg/dL (200); Creatinine, Serum 0.91 mg/dL (0.55-1.02); EST Glomerular Filtration Rate 64 mL/min (>60); Est Glom Filt Rate - Afr Amer 77 mL/min (>60); Globulin 4.1 g/dL (2.2-4.2); Glucose 169 mg/dL (74-106); High Density Lipoprotein 43 mg/dL; Protein, Total 7.8 g/dL (6.4-8.2); Sodium Level 139 mmol/L (136-145); Triglycerides 181 mg/dL; Very Low Density Lipoprotein 36 mg/dL (5-40)
[2024-03-22 11:13] LABS: Microalbumin:Creatinine Ratio 677.7 mg/g CRE (<30 mg/g CRE)
== END | disposition home or self-care (01) ==
LOC: MTLAB 07:08
PROVIDERS: PCP Family Medicine; Referring Provider Internal Medicine Endocrinology, Diabetes & Metabolism; Visit Provider Internal Medicine Endocrinology, Diabetes & Metabolism
DX: E11.65 Type 2 diabetes mellitus with hyperglycemia (principal); E11.22 Type 2 diabetes mellitus with diabetic chronic kidney disease; I12.9 Hypertensive chronic kidney disease with stage 1 through stage 4 chronic kidney disease, or unspecified chronic kidney disease; N18.9 Chronic kidney disease, unspecified; E55.9 Vitamin D deficiency, unspecified
CPT/HCPCS: 36415; 80053; 80061; 82043; 82306; 82570; 83036; 84443

== ENCOUNTER 2024-06-24 13:21 | Observation (INO) | payer MEDICARE, SELFPAY ==
[2024-06-24] VITALS (12 sets, daily range): BP systolic 163–203; BP diastolic 66–97; PULSE 72–83; RESP 17–27; TEMP 35.7–37.1; O2SAT 95–100; BMI 23.2; BMI 21.6
--- NOTE | 2024-06-24 13:25 | EKG12_ITS ---
Test Reason : STROKE Blood Pressure : */* mmHG Vent. Rate : 75 BPM Atrial Rate : 75 BPM P-R Int : 146 ms QRS Dur : 76 ms QT Int : 406 ms P-R-T Axes : 35 -26 42 degrees QTcB Int : 453 ms Normal sinus rhythm Normal ECG Confirmed by VANIA JEFFREY ([id number]), school photograph editor RADHA VERA ([id number]) on 06/25/2024 11:52:59 AM Referred By: Confirmed By: VANIA JEFFREY
--- NOTE | 2024-06-24 13:25 | CT_ITS ---
STUDY: CT HEAD STROKE PROTOCOL W/O CONTRAST INJECTION REASON FOR EXAM: Female, 78 years old. Neuro deficit, acute, stroke suspected RADIATION DOSAGE (If Supplied By Facility): CTDIvol = ( 44.99 ) mGy, DLP = ( 745.49 ) mGycm TECHNIQUE: Transaxial CT imaging of the brain was performed without administration of intravenous contrast material. Individualized dose optimization techniques were used for this CT. COMPARISON: No relevant priors. FINDINGS: Normal soft tissue structures. Normal calvarium. There is mild cerebral atrophy with widening of the extra-axial spaces and ventricular dilatation. Focal decreased attenuation seen in the posterior left temporal occipital lobes. This is suggestive of acute to subacute ischemic change. There are areas of decreased attenuation within the white matter tracts of the supratentorial brain, consistent with microvascular disease changes. Normal basal ganglia and thalami. Normal brainstem. There is mild cerebellar atrophy. There is no intracranial hemorrhage. There are no findings of an acute ischemic infarction. Atherosclerotic calcification of the cavernous portions of the internal carotid arteries as well as the vertebral arteries. Mucosal thickening of the ethmoid sinuses. ASPECT score: 9 CT/STROKE Brain/Head without Cont IMPRESSION: Chronic involutional changes of the brain. Findings suggestive of acute to subacute ischemic change involving the posterior left temporal occipital lobe. N.B. : The above Results were Read Back by Lam Rogers MD to Liam Gonzalez DO, and understanding confirmed on 06/24/2024 13:38:24 (ET). Electronically Signed: Lam Rogers MD at 13:40 EST ,
--- NOTE | 2024-06-24 13:25 | RAD_ITS ---
STUDY: X-RAY CHEST REASON FOR EXAM: Female, 78 years old. Neuro deficit, acute, stroke suspected TECHNIQUE: Single AP portable view of the chest. COMPARISON: Comparison is made with prior study dated August 28, 2016. FINDINGS: EKG electrodes are seen. The lungs are clear and expanded. There is no demonstrated pleural abnormality. Normal size heart. Normal mediastinum and sera. Normal visualized pulmonary arteries. There is atherosclerotic tortuosity of the aortic arch and descending thoracic aorta. There are diffuse degenerative changes of the visualized thoracic spine. There is degenerative osteoarthritis of the bilateral shoulders. There is no demonstrated abnormality of the visualized soft tissue structures of the upper abdomen. RAD/Chest 1 View IMPRESSION: No acute abnormality is seen. Electronically Signed: Lam Rogers MD at 14:15 EST ,
--- NOTE | 2024-06-24 13:26 | CT_ITS ---
STUDY: CTA HEAD AND NECK WITH CONTRAST REASON FOR EXAM: Female, 78 years old. Neuro deficit, acute, stroke suspected RADIATION DOSAGE (If Supplied By Facility): CTDIvol = ( 18.3 ) mGy, DLP = ( 569.21 ) mGycm TECHNIQUE: CT angiography was performed with a multi-detector CT scanner. Data acquisition was obtained from the skull base through the vertex following intravenous administration of IV 100mL [id number]-370. MIP images were reconstructed from the axial data set. Post-processing of the angiographic images was performed, with multiplanar reformation and 3D reconstruction. Individualized dose optimization techniques were used for this CT. COMPARISON: No relevant priors. FINDINGS: Normal bilateral petrous carotid arteries. There is calcified plaque formation of the right cavernous carotid artery, with a mild stenosis (less than 50%). There is calcified plaque formation of the left cavernous carotid artery, with a mild stenosis (less than 50%). Normal right A1 segments of the anterior cerebral artery. Normal left A1 segments of the anterior cerebral artery. Normal intact anterior communicating artery (ACOM). Normal bilateral A2 segments of the anterior cerebral arteries. Normal right M1 and M2 segments of the middle cerebral arteries, with a normal M1 bifurcation. Normal left M1 and M2 segments of the middle cerebral arteries, with a normal M1 bifurcation. Normal right posterior communicating artery (PCOM). Normal left posterior communicating artery (PCOM). Normal bilateral vertebral arteries. Normal basilar artery with a normal basilar bifurcation. The visualized bilateral superior cerebellar (SCA) arteries are normal. Normal bilateral P1, P2 and visualized P3 segments of the posterior cerebral arteries. There is no demonstrated aneurysm of the [place] of [place]. AORTIC ARCH: There is atherosclerotic calcific plaque formation of the aortic arch and great vessels arising from the aortic arch, without a hemodynamically significant stenosis. There is a normal origin of the brachiocephalic, left common carotid, and left subclavian arteries. RIGHT CAROTID ARTERIES: Normal right common carotid artery (CCA). Normal right common carotid bulb. There is mild atherosclerotic plaque formation of the origin of the right internal carotid artery with less than 50% cross sectional diameter stenosis. Normal visualized cervical portion of the right internal carotid artery. Normal origin of the right external carotid artery (ECA). LEFT CAROTID ARTERIES: Normal left common carotid artery (CCA). Normal left common carotid bulb. Normal origin of the left internal carotid (ICA) artery without a hemodynamically significant stenosis. Normal visualized cervical portion of the left internal carotid artery. Normal origin of the left external carotid artery (ECA). VERTEBRAL ARTERIES: Atherosclerotic plaque formation along the course of the left vertebral artery. Narrowing of the mid portion of the left vertebral artery. CT/STROKE CTA Head AND Neck W/Con IMPRESSION: Minimal plaque formation at the origin of the right internal carotid artery. Calcific plaques along the course of the left vertebral artery. N.B. : The above Results were Read Back by Lam Rogers MD to Dr Lisa DO, and understanding confirmed on 06/24/2024 13:58:01 (ET). Electronically Signed: Lam Rogers MD at 13:59 EST ,
--- NOTE | 2024-06-24 13:37 | CM.ED ---
Social Work Reason for visit: Stroke alert Stroke alert called in triage, patient was brought in by her two daughters. While patient was taken for testing, SW walked daughters to the patients ER room. Emotional support offered, daughters appreciative but stated they were okay for now. No further needs identified. Myriam Nolasco, SENIOR CONSTRUCTION PROJECT MANAGER, [employer] SAL[employer] MANAGER
--- NOTE | 2024-06-24 13:41 | EDS_ITS ---
HPI History of Present Illness Chief Complaint: Stroke Alert Informant: patient and family Narrative Narrative: Brought in by family for concerns for stroke symptoms. Patient woke up at 6 AM she states she felt normal. Family here present they have not spoken to her for couple days. Reported that patient's son called her at 1230 she seemed to have slurred speech. We discussed with patient as her timeframe from 6 AM to 1230 she cannot tell me. She denies headache. She is noting intermittent slurred speech that she admits to this. There is a right facial droop. No hemiparesis no paresthesias. No stroke history. She is a diabetic hypertension history of hyperlipidemia. Prior similar symptoms: No [facility] Medical History Hypertension Diabetes mellitus type 2 in nonobese Diabetic neuropathy Dyslipidemia Diabetes Home Medications ?Medication ?Instructions ?Recorded ?Last Taken ?Type empagliflozin 25 mg tablet 25 mg PO DAILY dm 09/20/17 06/24/24 History (Jardiance) pioglitazone 45 mg tablet 45 mg PO DAILY dm 09/20/17 06/24/24 History spironolactone 50 mg tablet 50 mg PO DAILY bp 09/20/17 06/24/24 History acetaminophen 325 mg tablet 500 mg PO QHS PRN Mild Pain (scale 06/24/24 06/23/24 History (Tylenol) 0-3)/T>100.7 amlodipine 10 mg-benazepril 40 mg 1 cap PO DAILY blood pressure 06/24/24 06/24/24 History capsule gabapentin 600 mg tablet 600 mg PO QHS neuropathy 06/24/24 06/23/24 History insulin aspart U-100 100 unit/mL 25 unit subcut DINNER DM 06/24/24 06/23/24 History (3 mL) subcutaneous pen (Novolog FlexPen U-100 Insulin aspart) semaglutide 0.25 mg or 0.5 mg (2 0.5 mg subcut .friday DM 06/24/24 06/18/24 History mg/3 mL) subcutaneous pen injector (Ozempic) aspirin 81 mg tablet,delayed 81 mg PO DAILY #30 tabs 06/25/24 Unknown Rx release (Ecotrin Low Strength) clopidogrel 75 mg tablet 75 mg PO DAILY 3 weeks #21 tabs 06/25/24 Unknown Rx hydrochlorothiazide 12.5 mg tablet 6.25 mg (1/2 x 12.5 mg) PO DAILY 1 06/25/24 Unknown Rx month #30 tabs rosuvastatin 40 mg tablet 40 mg PO QHS 1 month #30 tabs 06/25/24 Unknown Rx Allergy/AdvReac Type Severity Reaction Status Date / Time No Known Allergies Allergy Verified 06/24/24 13:24 Family History Other Diabetes Heart disease Surgical History no surgical history Social History household members: none housing: house Smoking Status: Never smoker alcohol intake: never substance use type: does not use ROS ROS ED Constitutional Constitutional ED: Denies chills, fever(s) or sweats Eyes Eyes: Denies change in vision ENT ENT ED: Denies dysphagia or sore throat Cardiovascular Cardiovascular: Denies chest pain, leg edema, palpitations or racing heartbeat Respiratory/Chest Respiratory/Chest: Denies cough, dyspnea or dyspnea on exertion Gastrointestinal Gastrointestinal: Denies abdominal pain, diarrhea, nausea or vomiting Genitourinary Genitourinary ED: Denies dysuria, hematuria or urinary frequency Musculoskeletal Musculoskeletal: Denies back pain, extremity pain or neck pain Integumentary Denies rash or wounds Neurologic Neurologic: Reports other Details: Slurred speech. ; Denies headache(s), paresthesias or weakness EXAM Physical Exam Const Vital Signs: 06/24/24 13:22 06/24/24 13:25 06/24/24 13:27 Temperature 96.6 F L Temperature Source Temporal Pulse Rate 83 83 Respiratory Rate 18 18 Blood Pressure 203/97 H 203/97 H Blood Pressure Mean 132 132 Pulse Ox 99 99 Oxygen Delivery Method Room Air Room Air 06/24/24 13:38 06/24/24 13:55 06/24/24 14:25 Temperature 98 F Temperature Source Oral Pulse Rate 79 77 78 Respiratory Rate 17 18 20 H Blood Pressure 163/93 H 193/84 H 182/88 H Blood Pressure Mean 116 120 119 Pulse Ox 97 98 98 Oxygen Delivery Method Room Air Room Air Room Air 06/24/24 14:30 Temperature Temperature Source Pulse Rate 78 Respiratory Rate 20 H Blood Pressure 182/88 H Blood Pressure Mean 119 Pulse Ox 98 Oxygen Delivery Method Room Air Positive well nourished and well developed General Appearance ED: well developed and NAD HEENT Reports moist mucous membranes normocephalic and atraumatic Nose: other Other Details: Right lip droop. Eyes EOMs intact bilaterally and conjunctivae normal General Eye ED: Yes normal appearance of both eyes Neck no lymphadenopathy and supple General: Negative for tenderness Chest Wall Chest: Negative for tenderness Resp normal respiratory effort and normal air movement Effort and Inspection: symmetric chest movement; Negative for respiratory distress Cardio regular rate, regular rhythm and no murmurs Peripheral Pulses: pulses 2+ throughout GI normal to inspection, nondistended, normoactive bowel sounds and non-tender Palpation: Negative for guarding or rebound tenderness present Back/Spine no CVA tenderness and no thoracic nor lumbar tenderness Extremity normal to inspection General Extremety ED: Negative for edema or tenderness General Extremity: Negative for edema Neuro oriented x3 and no sensory deficits noted Sensorium / Orientation: awake and alert Skin no rashes or lesions noted and no wounds MDM MDM MDM Narrative Medical decision making narrative: Interventions / MDM: Differential diagnosis: Acute CVA, right facial droop, slurred speech Diagnosis considered but do not suspect: Intracranial hemorrhage however CT negative. My EKG interpretation: Sinus rhythm rate 75, no ST or T wave changes. History Imaging independently reviewed and interpreted by myself: CT brain: No hemorrhage. Early ischemic findings left occipital temporal region. CT angiogram: No acute process. 1 view chest x-ray: No acute process. External documents reviewed: N/A Test considered but not ordered:N/A ED course: Patient seen in triage. Patient had right lip droop, NIH of 2 for this. No other deficits. Last normal per patient 6 AM when she woke up she cannot tell me when her slurred speech started. Stroke team was activated. 1340: Discussed with radiology CT scan of the brain concerning for ischemic findings left occipital temporal region consistent with her areas. There is no hemorrhage. 1350: Patient evaluated by telestroke neurologist, outside the window for TNK. Recommended admission for stroke workup. Awaiting CT angiogram results. CT angiogram mild calcifications no severe stenosis. Remained stable reevaluation still persistent right lip droop. Labs were stable blood pressure systolic 180 in the room. I discussed with hospitalist Dr. Burch for admission. Re-evaluation: stable Disposition discussed with patient/family/significant other: Patient and family Case discussed with consulting clinician: Telemetry neurology, hospitalist This note was generated with [employer] dictation software. It may contain incorrect words, spelling, and punctuation that were not noted in checking the note before signing. Lab Data Attestation: I reviewed the patient's lab results. Labs: Laboratory Results - last 24 hr 06/24/24 13:40 WBC 7.8 RBC 4.32 Hgb 12.6 Hct 37.3 MCV 86.3 MCH 29.2 MCHC 33.8 RDW Std Deviation 40.2 RDW Coeff of Gregoria 12.8 Plt Count 263 MPV 10.3 Immature Gran % (Auto) 0.300 Neut % (Auto) 63.7 Lymph % (Auto) 25.0 [place] % (Auto) 8.2 Eos % (Auto) 2.2 Baso % (Auto) 0.6 Absolute Neuts (auto) 5.0 Absolute Lymphs (auto) 1.95 Nucleated RBC % 0 PT 14.1 INR 1.1 APTT 34.1 Radiography Diagnostic Testing: Clinical Impression(s) from Imaging Studies Brain CT 06/24/24 13:25 IMPRESSION: Chronic involutional changes of the brain. Findings suggestive of acute to subacute ischemic change involving the posterior left temporal occipital lobe. N.B. : The above Results were Read Back by Lam Rogers MD to Liam Gonzalez DO, and understanding confirmed on 06/24/2024 13:38:24 (ET). Electronically Signed: Lam Rogers MD at 13:40 EST , ADDENDUM: 06/24/24 1347 IMPRESSION: Chronic involutional changes of the brain. Findings suggestive of acute to subacute ischemic change involving the posterior left temporal occipital lobe. N.B. : The above Results were Read Back by Lam Rogers MD to Liam Gonzalez DO, and understanding confirmed on 06/24/2024 13:38:24 (ET). Electronically Signed: Lam Rogers MD at 13:40 EST , Chest X-Ray 06/24/24 13:25 IMPRESSION: No acute abnormality is seen. Electronically Signed: Lam Rogers MD at 14:15 EST , Head/Neck CTA 06/24/24 13:26 IMPRESSION: Minimal plaque formation at the origin of the right internal carotid artery. Calcific plaques along the course of the left vertebral artery. N.B. : The above Results were Read Back by Lam Rogers MD to Dr Lisa DO, and understanding confirmed on 06/24/2024 13:58:01 (ET). Electronically Signed: Lam Rogers MD at 13:59 EST Reading Location ID and State: [facility] / [place] , Service support , ADDENDUM: 06/24/24 1406 IMPRESSION: Minimal plaque formation at the origin of the right internal carotid artery. Calcific plaques along the course of the left vertebral artery. N.B. : The above Results were Read Back by Lam Rogers MD to Dr Lisa DO, and understanding confirmed on 06/24/2024 13:58:01 (ET). 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
--- NOTE | 2024-06-24 13:45 | ED.RN ---
pt unaware of most medications, does not know dosages
[2024-06-24 13:49] LABS: Absolute Lymphocyte Count 1.95 X10^3/uL (0.83-4.51); Basophil# 0.05 X10^3/uL; Basophil% 0.6 % (0-1); Eosinophil# 0.17 X10^3/uL; Eosinophils% 2.2 % (0-5); Hematocrit 37.3 % (37-47); Hemoglobin 12.6 g/dL (12.0-15.0); Lymphocyte # 1.95 X10^3/ul (0.83-4.51); Mean Corp Hgb Conc 33.8 g/dL (32-36); Mean Corpuscular Hgb 29.2 pg (27.0-32.0); Mean Corpuscular Volume 86.3 fL (81-99); Mean Platelet Vol. 10.3 fl (6.2-12.0); Monocyte# 0.64 X10^3/uL; Monocyte% 8.2 % (0-10); NRBC Flagged by Analyzer 0 % (0-5); Neutrophil # 4.98 X10^3/uL (2.7-7.7); Neutrophil % 63.7 % (47-70); Platelet Count 263 K/mm3 (150-450); RBC Distribution Width CV 12.8 % (11.6-14.6); RBC Distribution Width SD 40.2 fl (35.1-43.9); Red Blood Count 4.32 M/mm3 (4.2-5.4); White Blood Count 7.8 K/mm3 (4.4-11.0)
[2024-06-24 14:01] LABS: International Normalized Ratio 1.1; Prothrombin Time (Protime)PT. 14.1 SECONDS (11.7-14.9)
[2024-06-24 14:02] LABS: Partial Thromboplast Time 34.1 Seconds (24.1-36.2)
--- NOTE | 2024-06-24 14:37 | PCM.HP.STD ---
HPI - General General Date of Admission: 06/24/24 Date of Service: 06/24/24 Chief Complaint: Right facial droop/slurred speech HPI Narrative MELCHOR DE LA CRUZ, is a 78 F who presented to emergency department [facility] 2023 with a chief complaint of right facial droop and slurred speech with unknown time of onset. She was last known well at about 6:00 this morning and then her son called her around 1230 and noted her speech was slurred. Patient was not able to ascertain exactly when her speech changed so onset of symptoms unclear. She denied any weakness or paresthesias in the arms or legs. Family also noted she has a right facial droop which is not her baseline. At the time my evaluation the patient does still have an right facial droop which is different from her baseline per family and her speech is still somewhat garbled compared to her baseline. She does not have her teeth and but family states that her speech is still off base from her norm with or without her teeth. She does have past medical history of hyperlipidemia, hypertension, and diabetes. Patient states she does take a baby aspirin daily. She is a never smoker. Vital signs on presentation showed temperature of 96.6, heart rate 83, initial blood pressure was 203/97 with a repeat at 186/92. She was given labetalol. Respiratory rate is 18 and sats are 99% on room air. CBC is unremarkable. Coags are normal. Chemistry panel was still pending at the time of admission. CT of the brain is reported out as finding suggestive of acute to subacute ischemic changes in the posterior left temporal occipital lobe region. CTA of the head and neck shows minimal plaque formation of the origin of the right internal carotid artery with calcific plaques along the course of the left vertebral artery but was otherwise unremarkable for any LVO or severe stenosis. EKG was sinus rhythm with normal intervals and poor R wave progression with no findings suggestive of acute ischemia. Chest x-ray is unremarkable. NIH is admission was 2 for facial droop only. Case was discussed with stroke neurologist at [facility] and patient was out of the window for tenecteplase due to unknown time of onset and admission was requested for stroke workup. [facility] Medical History Hypertension Diabetes mellitus type 2 in nonobese Diabetic neuropathy Dyslipidemia Diabetes Home Medications ?Medication ?Instructions ?Recorded ?Last Taken ?Type empagliflozin 25 mg tablet 25 mg PO DAILY dm 09/20/17 06/24/24 History (Jardiance) pioglitazone 45 mg tablet 45 mg PO DAILY dm 09/20/17 06/24/24 History rosuvastatin 20 mg tablet 20 mg PO DAILY cholesterol 09/20/17 06/24/24 History spironolactone 50 mg tablet 50 mg PO DAILY bp 09/20/17 06/24/24 History acetaminophen 325 mg tablet 500 mg PO QHS PRN Mild Pain (scale 06/24/24 06/23/24 History (Tylenol) 0-3)/T>100.7 amlodipine 10 mg-benazepril 40 mg 1 cap PO DAILY 06/24/24 06/24/24 History capsule gabapentin 600 mg tablet 600 mg PO QHS neuropathy 06/24/24 06/23/24 History insulin aspart U-100 100 unit/mL 25 unit subcut DINNER DM 06/24/24 06/23/24 History (3 mL) subcutaneous pen (Novolog FlexPen U-100 Insulin aspart) semaglutide 0.25 mg or 0.5 mg (2 0.5 mg subcut .friday DM 06/24/24 06/18/24 History mg/3 mL) subcutaneous pen injector (Ozempic) Allergy/AdvReac Type Severity Reaction Status Date / Time No Known Allergies Allergy Verified 06/24/24 13:24 Family History Other Diabetes Heart disease Surgical History no surgical history no surgical history Social History household members: none housing: house Smoking Status: Never smoker alcohol intake: never substance use type: does not use ROS Constitutional Constitutional: Denies anorexia, change in weight, chills, fatigue, fever(s), malaise, night sweats, weakness or other Eyes Eyes: Denies blurry vision, change in eye color, change in vision, discharge from eye(s), double vision, erythema, eye pain, loss of vision or other ENT HEENT: Denies abnormal hearing, dysphagia, ear pain, epistaxis, headache(s), hearing loss, nasal congestion, nasal discharge, post nasal drip, sinus pressure, sore throat or other Cardiovascular Cardiovascular: Denies chest pain, claudication, dyspnea on exertion, edema, lightheadedness, orthopnea, palpitations, paroxysmal nocturnal dyspnea, rapid heart rate, syncope or other Respiratory/Chest Respiratory/Chest: Denies cough, dyspnea, excessive phlegm production, hemoptysis, productive cough, shortness of breath at rest, shortness of breath with exertion, wheezing or other Gastrointestinal Gastrointestinal: Denies abdominal pain, coffee ground emesis, constipation, diarrhea, dyspepsia, hematemesis, hematochezia, loose stools, melena, nausea, vomiting or other Genitourinary Genitourinary: Denies burning urination, difficulty urinating, dysuria, hematuria, nocturia, urinary frequency, urinary hesitancy, urinary incontinence, urinary urgency or other Musculoskeletal Musculoskeletal: Denies arthralgias, back pain, joint pain, joint stiffness, joint swelling, myalgias, neck pain or other Neurologic Neurologic: Reports abnormal speech and focal weakness; Denies abnormal gait, confusion, disequilibrium, dizziness, headache(s), numbness, paresthesias, seizure-like activity, seizures, syncope, tingling, tremor(s) or other Psychiatric Psychiatric: Denies anxiety, depression, homicidal ideation, suicidal ideation or other Endocrine Endocrinology: Denies change in body appearance, cold intolerance, excessive sweating, heat intolerance, polydipsia, polyuria or other Hematologic/Lymphatic Hematologic/Lymphatic: Denies anemia, easy bleeding, easy bruising, lymphadenopathy or other Allergic/Immunologic Allergic/Immunologic: Denies rhinitis, hives, eczemia, asthma or other Vital Signs Vital Signs Vital Signs: 06/24/24 13:22 06/24/24 13:25 06/24/24 13:27 Temperature 96.6 F L Temperature Source Temporal Pulse Rate 83 83 Respiratory Rate 18 18 Blood Pressure 203/97 H 203/97 H Blood Pressure Mean 132 132 Pulse Ox 99 99 Oxygen Delivery Method Room Air Room Air 06/24/24 13:38 06/24/24 13:55 06/24/24 14:25 Temperature 98 F Temperature Source Oral Pulse Rate 79 77 78 Respiratory Rate 17 18 20 H Blood Pressure 163/93 H 193/84 H 182/88 H Blood Pressure Mean 116 120 119 Pulse Ox 97 98 98 Oxygen Delivery Method Room Air Room Air Room Air 06/24/24 14:30 Temperature Temperature Source Pulse Rate 78 Respiratory Rate 20 H Blood Pressure 182/88 H Blood Pressure Mean 119 Pulse Ox 98 Oxygen Delivery Method Room Air Weight Weight: 55.79 kg Body Mass Index (BMI) 23.2 Physical Exam Const alert, oriented x3, no apparent distress, average body habitus, healthy appearing and well nourished Constitutional Narrative: Elderly, white female, sitting up in bed, multiple family members at bedside, patient appears comfortable, nontoxic, able to interact appropriately General Appearance: cooperative HEENT normocephalic, head/scalp atraumatic, hearing grossly normal bilaterally and moist oral mucous membranes HEENT Narrative: Edentulous, Mallampati is 2, no thrush Resp normal respiratory effort, no retractions, no use of accessory muscles and clear to auscultation bilaterally Auscultation: Negative for rales, rhonchi or wheezes Cardio regular rate, regular rhythm, S1 normal heart sound, S2 normal heart sound, no rub, no gallops and no clicks; Negative for no murmurs Cardio Narrative: 2 out of 6 systolic murmur loudest at right upper sternal border GI normal to inspection, nondistended, normoactive bowel sounds, soft to palpation and non-tender Extremity no clubbing, cyanosis or edema Extremity Narrative: Pedal and radial pulses are 2+ Neuro oriented x3, moves all extremities and no focal motor deficits Neuro Narrative: Mild right facial droop but all other cranial nerves are within normal limits, strength is grossly 4 out of 5 proximally and 5 out of 5 distally for both upper and lower extremities, reflexes are within normal limits, no clonus, speech is just slightly dysarthric Psych affect normal Psych Narrative: Very pleasant, eye contact is good and patient interacts appropriately Results Lab / Micro Data 06/24/24 13:40 06/24/24 13:40 Labs: Laboratory Results - last 24 hr 06/24/24 13:40: WBC 7.8, RBC 4.32, Hgb 12.6, Hct 37.3, MCV 86.3, MCH 29.2, MCHC 33.8, RDW Std Deviation 40.2, RDW Coeff of Gregoria 12.8, Plt Count 263, MPV 10.3, Immature Gran % (Auto) 0.300, Neut % (Auto) 63.7, Lymph % (Auto) 25.0, Brantley % (Auto) 8.2, Eos % (Auto) 2.2, Baso % (Auto) 0.6, Absolute Neuts (auto) 5.0, Absolute Lymphs (auto) 1.95, Nucleated RBC % 0, PT 14.1, INR 1.1, APTT 34.1 Imaging Radiology Impression Brain CT 06/24/24 13:25 IMPRESSION: Chronic involutional changes of the brain. Findings suggestive of acute to subacute ischemic change involving the posterior left temporal occipital lobe. N.B. : The above Results were Read Back by Lam Rogers MD to Liam Gonzalez DO, and understanding confirmed on 06/24/2024 13:38:24 (ET). Electronically Signed: Lam Rogers MD at 13:40 EST , ADDENDUM: 06/24/24 1347 IMPRESSION: Chronic involutional changes of the brain. Findings suggestive of acute to subacute ischemic change involving the posterior left temporal occipital lobe. N.B. : The above Results were Read Back by Lam Rogers MD to Liam Gonzalez DO, and understanding confirmed on 06/24/2024 13:38:24 (ET). Electronically Signed: Lam Rogers MD at 13:40 EST , Chest X-Ray 06/24/24 13:25 IMPRESSION: No acute abnormality is seen. Electronically Signed: Lam Rogers MD at 14:15 EST , Head/Neck CTA 06/24/24 13:26 IMPRESSION: Minimal plaque formation at the origin of the right internal carotid artery. Calcific plaques along the course of the left vertebral artery. N.B. : The above Results were Read Back by Lam Rogers MD to Dr Lisa DO, and understanding confirmed on 06/24/2024 13:58:01 (ET). Electronically Signed: Lam Rogers MD at 13:59 EST , ADDENDUM: 06/24/24 1406 IMPRESSION: Minimal plaque formation at the origin of the right internal carotid artery. Calcific plaques along the course of the left vertebral artery. N.B. : The above Results were Read Back by Lam Rogers MD to Dr Lisa DO, and understanding confirmed on 06/24/2024 13:58:01 (ET). Electronically Signed: Lam Rogers MD at 13:59 EST , Assessment & Plan Assessment/Plan (1) Dysarthria: (2) Facial droop: PLAN: Plan Right facial droop/dysarthria -Findings on CT are suggestive of left occipital stroke -NIH on admission was 2 -Continue NIH per stroke order set -Blood pressure management per stroke order set will hold home antihypertensives for now to allow for permissive hypertension -PRNs available -Start aspirin 81 mg daily -Start Plavix 75 mg daily -High-dose atorvastatin 80 mg daily -Check echocardiogram -Check hemoglobin A1c -Check lipids next-check MRI of the brain without contrast -Neurology consultation -Patient may need event monitor at discharge -PT/OT/speech therapy consultation Hyperkalemia -Mild at 3.4 -Replaced with 40 mEq p.o. potassium -Recheck in a.m. -Check a.m. magnesium level Essential hypertension/hyperlipidemia -Antihypertensives on hold for now due to allowing for permissive hypertension post suspected stroke -High intensity dose statin -Check lipids DM-2 -Once medications verified will start on appropriate medications -[facility] -A1c is pending--> last A1c in March was 7.1 -Patient follows with endocrinology in [place] -[facility] with Accu-Cheks as ordered -Will start cardiac/carb controlled diet once passes swallow eval Diabetic neuropathy -Continue home gabapentin DVT prophylaxis -Lovenox subcu daily CODE STATUS -Full code as verified on admission Charges/Coding Visit Charges Inpatient E&M: 75153 Init Hosp L2
--- NOTE | 2024-06-24 14:49 | ECHOD_ITS ---
Reason For Study: TIA/STROKE Procedure This was a 2D Doppler, Color Flow transthoracic echocardiogram. Exam performed portable in ED. Left Ventricle Normal left ventricle. The estimated ejection fraction is 55-60 %. Right Ventricle Normal right ventricle. Normal systolic function. Atria Normal left atrium. Normal right atrium. Bubble contrast study negative for right to left interatrial shunt. Mitral Valve The mitral valve is structurally normal. No prolapse or stenosis seen. No mitral valve insufficiency. Tricuspid Valve Normal tricuspid valve. Aortic Valve Aortic sclerosis, no stenosis. Pulmonic Valve The pulmonic valve is not well visualized. Great Vessels Normal aortic root. Pericardium/Pleural No pericardial effusion. Medication Performed a rapid injection of agitated mix of 9 cc saline and 1cc air to assess for atrial septal defect. MMode/2D Measurements & Calculations LVIDd: 4.0 cm IVSd: 1.6 cm LVOT diam: 2.0 cm LVIDs: 2.0 cm LVPWd: 1.4 cm RVDd: 2.4 cm FS: 49.5 % LVOT area: 3.0 cm2 Ao root diam: 2.6 cm asc Aorta Diam: 3.3 cm LAV(MOD-bp): 23.8 ml LAV(MOD-bp) Indexed: 15.5 ml/m2 LAV(MOD-sp2): 26.0 ml LAV(MOD-sp4): 19.8 ml SV(MOD-sp4): 40.2 ml SV(sp4-el): 41.8 ml LVAd ap4: 23.0 cm2 LVLd ap4: 7.8 cm SI(MOD-sp4): 26.2 ml/m2 EDV(MOD-sp4): 56.0 ml EDV(sp4-el): 57.8 ml LVAs ap4: 10.4 cm2 LVLs ap4: 5.7 cm ESV(MOD-sp4): 15.9 ml ESV(sp4-el): 16.0 ml EF(MOD-sp4): 71.7 % EF(sp4-el): 72.3 % LA A4 area: 9.8 cm2 LA dimension(2D): 3.0 cm RA A4 area: 9.7 cm2 Time Measurements MV dec time: 0.32 sec Doppler Measurements & Calculations MV E max aleksander: 56.9 cm/sec Lat Peak E' Aleksander: 6.1 cm/sec Med Peak E' Aleksander: 6.1 cm/sec MV A max aleksander: 97.8 cm/sec E/E' lat: 9.3 E/E' med: 9.3 MV E/A: 0.58 MV V2 max: 94.1 cm/sec MV dec slope: 175.2 cm/sec2 Ao V2 max: 131.6 cm/sec MV max P.5 mmHg Ao max P.0 mmHg MV V2 mean: 35.8 cm/sec Ao V2 mean: 89.5 cm/sec MV mean P.88 mmHg Ao mean P.7 mmHg MV V2 VTI: 24.4 cm Ao V2 VTI: 30.2 cm MVA(VTI): 3.4 cm2 AV (velocity ratio): 0.91 VAZQUEZ(I,D): 2.7 cm2 VAZQUEZ(V,D): 3.0 cm2 LV V1 max: 129.8 cm/sec SV(LVOT): 82.2 ml PA V2 max: 127.4 cm/sec LV V1 max P.7 mmHg PA V2 mean: 97.9 cm/sec LV V1 mean P.7 mmHg LV V1 mean: 88.7 cm/sec LV V1 VTI: 27.4 cm ECHO/Echo Complete Interpretation Summary The estimated ejection fraction is 55-60 %. LV systolic function is normal No significant valvular abnormality No pericardial fusion. Negative bubble study/no intracardiac shunt No prior echo to compare Ordering Physician: Sapphire Burch Referring Physician: NURYS BARGER Performed By: Akila Minaya RCS
--- NOTE | 2024-06-24 14:49 | MRI_ITS ---
STUDY: MRI BRAIN WITHOUT CONTRAST REASON FOR EXAM: Female, 78 years old. Stroke, RT FACIAL DROOP, SLURRED SPEECH, ISCHEMIC CHANGES TECHNIQUE: Standardized multiplanar fat and water weighted pulse sequences were obtained. MRI examination of the RIGHT obtained with standard protocol including multiplanar multiecho noncontrast imaging. Contrast: No contrast administered. COMPARISON: CT of 06/24/2024 HEMISPHERES, CEREBELLUM AND BRAINSTEM: 1. The cerebral parenchyma, ventricular system and gyral pattern abnormal configuration. Diffuse involutional changes are present. 2. There is a focal area of fluid restriction in the LEFT internal capsule measuring approximately 5 mm. No evidence of hemosiderin deposition or hemorrhage. 3. No other evidence of ischemic changes, particularly with regard to the recent report of LEFT temporal occipital lobe abnormality. 4. Moderate to extensive chronic microvascular deep white matter changes are present.. 5. The cerebellum, brainstem, basilar and suprasellar cisterns have normal appearance. No Chiari malformation. PITUITARY: Infundibulum and pituitary have normal configuration. Midline structures appear normal. CSF SPACES: Appropriate for age. No hydrocephalus. Basal cisterns are patent. VESSELS: 1. There are normal flow voids noted in the great vessels at the skull base ORBITS AND PARANASAL SINUSES: 1. Both globes, extraocular muscles, optic nerves and retrobulbar fat appear unremarkable. 2. Diffuse mucosal thickening ethmoid complexes bilaterally. BONY ELEMENTS: Bony elements of the cranial vault, facial skeleton and skull base have normal appearance. SCALP AND SOFT TISSUES: Normal appearance of the soft tissues of the scalp and the visualized face OTHER: None MRI/Brain without Contrast IMPRESSION: 1. Focal 5 mm acute nonhemorrhagic infarct in the LEFT internal capsule/posterior limb. 2. No other evidence of mass, hemorrhage, or acute territorial infarct. 3. Diffuse involutional changes and moderate to extensive chronic microvascular deep white matter disease. 4. Diffuse ethmoid sinus mucosal thickening. Electronically Signed: Cirilo Ruelas MD at 20:22 EST ,
[2024-06-24 16:21] LABS: Anion Gap 8 (5-15); BUN 19 mg/dL (7-18); BUN/Creat Ratio 19.7 RATIO (10-20); Calcium,Total 8.9 mg/dL (8.5-10.1); Chloride 103 mmol/L (98-107); Creatinine, Serum 0.96 mg/dL (0.55-1.02); EST Glomerular Filtration Rate 59 mL/min (>60); Est Glom Filt Rate - Afr Amer 72 mL/min (>60); Estimated Creatinine Clearance 35.27 ml/min; Glucose 240 mg/dL (74-106); Potassium 3.4 mmol/L (3.5-5.1); Sodium Level 137 mmol/L (136-145); Troponin-I HS 11 pg/mL (3.0-54.0)
[2024-06-24] MEDS: Aspirin 81 MG TAB.CHEW PO (17:10)
[2024-06-24] MEDS: Insulin Lispro 100 UNIT/ML INSULN.PEN SC ×2 (17:10→22:12)
[2024-06-24 17:13] LABS: Bedside Glucose 216 mg/dL (74-106)
[2024-06-24] MEDS: Potassium Chloride Oral Tablet 20 MEQ 40 MEQ PO (18:58)
[2024-06-24] MEDS: Atorvastatin Calcium 80 MG Tablet PO (22:09)
[2024-06-24] MEDS: Gabapentin 600 MG Tablet PO (22:09)
[2024-06-24 22:39] LABS: Bedside Glucose 156 mg/dL (74-106)
[2024-06-25 02:00] VITALS: BP 133/77; PULSE 71; RESP 18; TEMP 35.5; O2SAT 97
[2024-06-25 06:00] VITALS: BP 165/75; PULSE 71; RESP 18; TEMP 35.6; O2SAT 98
[2024-06-25] MEDS: Insulin Lispro 100 UNIT/ML INSULN.PEN SC (06:18)
[2024-06-25 06:47] LABS: Bedside Glucose 158 mg/dL (74-106)
--- NOTE | 2024-06-25 07:07 | PCM.PN.HOSP ---
Reason for Visit Reason for Visit: Diagnoses Facial weakness (06/24/24) Dysarthria and anarthria (06/24/24) Objective Data Objective Data Vital Signs: Vital Signs Temp Pulse Resp BP Pulse Ox O2 Del Method 96.0 F L 71 18 165/75 H 98 Room Air 06/25/24 06:00 06/25/24 06:00 06/25/24 06:00 06/25/24 06:00 06/25/24 06:00 06/25/24 06:00 Oxygen Delivery Method Room Air Weight: 122 lb Body Mass Index (BMI) 21.6 Intake & Output: Intake and Output for Last 24 Hours 06/23/24 06/24/24 06/25/24 23:59 23:59 23:59 Intake Total 240 / 480 240 / 240 Balance 240 / 480 240 / 240 Lab / Micro Data 06/24/24 13:40 06/24/24 13:40 Labs: Laboratory Results - last 24 hr 06/24/24 13:40: WBC 7.8, RBC 4.32, Hgb 12.6, Hct 37.3, MCV 86.3, MCH 29.2, MCHC 33.8, RDW Std Deviation 40.2, RDW Coeff of Gregoria 12.8, Plt Count 263, MPV 10.3, Immature Gran % (Auto) 0.300, Neut % (Auto) 63.7, Lymph % (Auto) 25.0, Mchenry % (Auto) 8.2, Eos % (Auto) 2.2, Baso % (Auto) 0.6, Absolute Neuts (auto) 5.0, Absolute Lymphs (auto) 1.95, Nucleated RBC % 0, PT 14.1, INR 1.1, APTT 34.1, Sodium 137, Potassium 3.4 L, Chloride 103, Carbon Dioxide 26.0, Anion Gap 8, BUN 19 H, Creatinine 0.96, Estim Creat Clear Calc 35.27, Est GFR (MDRD) Af Amer 72, Est GFR (MDRD) Non-Af 59 L, BUN/Creatinine Ratio 19.7, Glucose 240 H, Calcium 8.9, Troponin I High Sens 11 06/24/24 16:55: POC Glucose 216 H 06/24/24 22:08: POC Glucose 156 H 06/25/24 06:15: POC Glucose 158 H Radiography Diagnostic Testing: Radiology Impression Brain CT 06/24/24 13:25 IMPRESSION: Chronic involutional changes of the brain. Findings suggestive of acute to subacute ischemic change involving the posterior left temporal occipital lobe. Chest X-Ray 06/24/24 13:25 IMPRESSION: No acute abnormality is seen. Electronically Signed: Lam Rogers MD at 14:15 EST , Head/Neck CTA 06/24/24 13:26 IMPRESSION: Minimal plaque formation at the origin of the right internal carotid artery. Calcific plaques along the course of the left vertebral artery. Brain MRI 06/24/24 14:49 IMPRESSION: 1. Focal 5 mm acute nonhemorrhagic infarct in the LEFT internal capsule/posterior limb. 2. No other evidence of mass, hemorrhage, or acute territorial infarct. 3. Diffuse involutional changes and moderate to extensive chronic microvascular deep white matter disease. 4. Diffuse ethmoid sinus mucosal thickening. Electronically Signed: Cirilo Ruelas MD at 20:22 EST , ADDENDUM: 06/24/242058 IMPRESSION: 1. Focal 5 mm acute nonhemorrhagic infarct in the LEFT internal capsule/posterior limb. 2. No other evidence of mass, hemorrhage, or acute territorial infarct. 3. Diffuse involutional changes and moderate to extensive chronic microvascular deep white matter disease. 4. Diffuse ethmoid sinus mucosal thickening. N.B. : Shelli Pimentel RN, confirmed on 06/24/2024 20:52:46 (ET) that the referring physician received the results and does not require a verbal communication. Electronically Signed: Cirilo Ruelas MD at 20:22 EST , Echocardiogram 11/21/24 14:49 Interpretation Summary The estimated ejection fraction is 55-60 %. LV systolic function is normal No significant valvular abnormality No pericardial fusion. Negative bubble study/no intracardiac shunt No prior echo to compare Ordering Physician: Sapphire Burch Referring Physician: NURYS BARGER Performed By: Akila Minaya RCS Assessment & Plan Assessment/Plan (1) Dysarthria: (2) Facial droop: PLAN: Plan This is a 78-year-old female was admitted with dysarthria, slurred speech and right facial droop of unknown time of onset. No hemiparesis or paresthesia 1. Acute left internal capsule/posterior limb ischemic infarct: Patient is being admitted in PCU. NIH stroke scale 2. CT head shows acute to subacute ischemic changes involving posterior left temporal occipital lobe. Patient further had MRI which reported focal 5 mm acute nonhemorrhagic infarct in left internal capsule/posterior limb. PT, OT, speech therapy/swallow evaluation and management, nursing NIH stroke scale, BP and glucose monitoring and control as per stroke protocol. Glucose 240 mg/dL. TSH, A1c fasting lipid profile tomorrow AM. 2D echo with bubble contrast read negative for [id number] interatrial shunt. Patient on aspirin, Plavix and high intensity atorvastatin. Neurology consult. Hyperkalemia -Mild at 3.4. Repeat magnesium and BMP pending - Essential hypertension/hyperlipidemia -Antihypertensives on hold for now due to allowing for permissive hypertension post suspected stroke -High intensity dose statin -Check lipids DM-2 -Once medications verified will start on appropriate medications -[facility] -A1c is pending--> last A1c in March was 7.1 -Patient follows with endocrinology in [place] -[facility] with Accu-Cheks as ordered -Will start cardiac/carb controlled diet once passes swallow eval Diabetic neuropathy -Continue home gabapentin DVT prophylaxis -Lovenox subcu daily CODE STATUS -Full code as verified on admission
[2024-06-25 07:22] VITALS: O2SAT 96
[2024-06-25 07:29] LABS: Absolute Lymphocyte Count 1.87 X10^3/uL (0.83-4.51); Absolute Neutrophil Count 4.6 X10^3/uL (2.0-7.7); Basophil# 0.06 X10^3/uL; Basophil% 0.8 % (0-1); Eosinophil# 0.21 X10^3/uL; Eosinophils% 2.8 % (0-5); Hematocrit 41.2 % (37-47); Hemoglobin 13.7 g/dL (12.0-15.0); Lymphocyte # 1.87 X10^3/ul (0.83-4.51); Mean Corp Hgb Conc 33.3 g/dL (32-36); Mean Corpuscular Volume 87.1 fL (81-99); Mean Platelet Vol. 10.5 fl (6.2-12.0); Monocyte# 0.71 X10^3/uL; Monocyte% 9.5 % (0-10); NRBC Flagged by Analyzer 0 % (0-5); Neutrophil # 4.62 X10^3/uL (2.7-7.7); Neutrophil % 61.6 % (47-70); Platelet Count 281 K/mm3 (150-450); RBC Distribution Width CV 13.1 % (11.6-14.6); RBC Distribution Width SD 41.3 fl (35.1-43.9); Red Blood Count 4.73 M/mm3 (4.2-5.4); White Blood Count 7.5 K/mm3 (4.4-11.0)
[2024-06-25 07:57] LABS: Phosphorus 3.7 mg/dL (2.5-4.9)
[2024-06-25 08:09] LABS: ALB/GLOB Ratio 1.1 RATIO (0.9-2.4); AST(SGOT) 17 U/L (15-37); Alanine Aminotransfer ALT/SGPT 18 U/L (13-56); Albumin, Serum 3.8 g/dL (3.2-5.0); Alkaline Phosphatase 102 U/L (45-117); Anion Gap 5 (5-15); BUN 17 mg/dL (7-18); BUN/Creat Ratio 17.6 RATIO (10-20); Calcium,Total 9.7 mg/dL (8.5-10.1); Chloride 110 mmol/L (98-107); Cholesterol 148 mg/dL (200); Creatinine, Serum 0.96 mg/dL (0.55-1.02); EST Glomerular Filtration Rate 59 mL/min (>60); Est Glom Filt Rate - Afr Amer 71 mL/min (>60); Estimated Creatinine Clearance 38.66 ml/min; Globulin 3.6 g/dL (2.2-4.2); Glucose 164 mg/dL (74-106); High Density Lipoprotein 57 mg/dL; Magnesium 2.2 mg/dL (1.6-2.6); Potassium 4.2 mmol/L (3.5-5.1); Protein, Total 7.4 g/dL (6.4-8.2); Sodium Level 141 mmol/L (136-145); Triglycerides 94 mg/dL; Very Low Density Lipoprotein 19 mg/dL (5-40)
[2024-06-25 09:33] VITALS: BP 162/70; PULSE 80; RESP 17; TEMP 36.6; O2SAT 97
[2024-06-25 09:35] LABS: Hemoglobin A1c 7.5 % (3.8-5.6)
--- NOTE | 2024-06-25 09:59 | PCM.DC ---
Discharge Instructions Diet Discharge Diet: 1800 Calorie Control Diet and 2000 mg Sodium Diet Activity Discharge Activity: Return to Normal Activity Weight Bearing Status: Weight bearing as tolerated Dressing / Incision Call your doctor if you observe: Fever of 101 or Higher, Coldness, Increased Pain, Numbness or Tingling, Change in Color, Inability to urinate, Inability to have a bowel movement, Shortness of breath, Dizziness, Fainting spells, Swelling in the ankles, Chest pain, Prolonged hiccupping, Increased palpitations (irregular heartbeat) and Calf discomfort Follow Up Care When: IN 2 WEEKS Test Results: Test results from this visit will be discussed in further detail at your follow-up appointment, if applicable. Discharge Plan Admission Admit Date/Time: 06/24/24 14:41 Primary Reason for Your Visit: Acute ischemic stroke Attending Provider: Robin Mcdowell Primary Care Provider: Godfrey Holley Consulting Providers: Jeffy Beck; Ani Gongora; Colleen Brown; Donna Kincaid; Felipa Hooks; John Garcia; Brisa Meier; Rajiv Mcdaniels; Brett Mendoza; Henok Cunningham; Josseline Aldrich; Terrell Louise; Anahi Jensen; David Holly; Delmy Brody; Aristeo Luke; Lg Amaya; Rod Gamino; Cora Burch; Nestor Ramirez; Sapphire Burch Instructions Additional Instructions / Restrictions: Advised to follow with PCP in 1 week to uptitrate antihypertensive medication Discharge Orders/Prescriptions Prescriptions: New clopidogrel 75 mg Tablet 75 mg PO DAILY 21 Days Qty: 21 3RF aspirin [Ecotrin Low Strength] 81 mg tablet,delayed release (DR/EC) 81 mg PO DAILY Qty: 30 3RF hydrochlorothiazide 12.5 mg tablet 6.25 mg PO DAILY 30 Days Qty: 30 1RF Rx Instructions: Hold for SBP less than 130 mmHg rosuvastatin 40 mg tablet 40 mg PO QHS 30 Days Qty: 30 2RF Continued spironolactone 50 MG tablet 50 mg PO DAILY Patient Comments: pioglitazone 45 MG tablet 45 mg PO DAILY Jardiance 25 MG tablet 25 mg PO DAILY gabapentin 600 mg tablet 600 mg PO QHS amlodipine-benazepril 10-40 mg capsule 1 cap PO DAILY acetaminophen [Tylenol] 325 MG tablet 500 mg PO QHS PRN (Reason: Mild Pain (scale 0-3)/T>100.7) Ozempic 0.25 mg or 0.5 mg (2 mg/3 mL) pen injector 0.5 mg subcut .friday insulin aspart U-100 [Novolog FlexPen U-100 Insulin] 100 unit/mL (3 mL) insulin pen 25 unit subcut DINNER Discontinued rosuvastatin 20 MG tablet 20 mg PO DAILY Referrals / Follow Up: Godfrey Holley MD [Primary Care Provider] - Within 1 Week Pramod Hernandez MD [Non-Staff -Ordering Privileges] - Within 1 Month Disposition Disposition (needs filled in before D/C Order can be placed): Home, Self Care
[2024-06-25] MEDS: Pioglitazone Hydrochloride 45 MG Tablet PO (10:11)
[2024-06-25] MEDS: Clopidogrel Bisulfate 75 MG Tablet PO (10:11)
[2024-06-25] MEDS: Empagliflozin 25 MG Tablet PO (10:11)
[2024-06-25] MEDS: Enoxaparin 40 MG/0.4 ML Syringe SC (10:12)
[2024-06-25] MEDS: 0.9% Saline Lock 10 ML Syringe IV (10:20)
--- NOTE | 2024-06-25 10:52 | CASEMGMT ---
Social Work SW met with pt and completed PHQ9 as pt is positive for stroke. PHQ9 score of 1 indicating minimal depression. SW educated pt and dgt to correlation between stroke and depression. SW spoke with pt regrading discharge plan. Pt lives at home alone in a mobile home with 4 steps to enter. Pt states she was independent with ADLs and IADLs prior to admission and is able to drive. Pt has a cane but ambulates independently. Pt and dgt state pt worked with therapy and did well. Pt and dgt have no concerns with pt returning home at time of discharge. Plan: home alone. Family support. KEE Ruano
[2024-06-25] MEDS: Potassium Chloride Oral Tablet 20 MEQ 40 MEQ PO (11:14)
[2024-06-25 11:56] LABS: Bedside Glucose 189 mg/dL (74-106)
--- NOTE | 2024-06-25 13:06 | PCM.DC.SUM ---
Providers Date of Admission: 06/24/24 Date of Discharge: 06/25/24 Primary Care Physician: Dr. Nurys Holley MD Consultations 06/24/24 16:16 Consult: Tele-Neurology Routine Consulting Provider: [facility] Reason for Consult: Acute Ischemic Stroke/TIA EMERGENT Consult: No MD Notified: Yes Date Notified: 06/24/24 Time Notified: 16:32 Method of Notification: Answering Service Nursing Unit Staff Notify [facility] of Tele-Neurology Consult: Yes Reason For Visit: STROKE Diagnosis Discharge Diagnosis (1) Dysarthria: Status: Acute Code(s): R47.1 - Dysarthria and anarthria (2) Facial droop: Status: Acute Code(s): R29.810 - Facial weakness Plan This is a 78-year-old female was admitted with dysarthria, slurred speech and right facial droop of unknown time of onset. No hemiparesis or paresthesia 1. Acute left internal capsule/posterior limb ischemic infarct: Patient is being admitted in PCU. NIH stroke scale 2. CT head shows acute to subacute ischemic changes involving posterior left temporal occipital lobe. Patient further had MRI which reported focal 5 mm acute nonhemorrhagic infarct in left internal capsule/posterior limb. PT, OT, speech therapy/swallow evaluation and management, nursing NIH stroke scale, BP and glucose monitoring and control as per stroke protocol. 2D echo with bubble contrast read negative for [id number] interatrial shunt. Patient on aspirin, Plavix and high intensity atorvastatin. Patient was seen by teleneurologist and discussed with him. Recommended DAPT, aspirin and Plavix for 3 weeks and then aspirin to continue indefinitely. Increase rosuvastatin 40 mg daily. Patient blood pressure is still elevated averaging about 165/75 therefore low-dose diuretic HCTZ 6.25 mg added to amlodipine/benazepril. All prescription sent to patient's preferred pharmacy. TSH normal. A1c 7.5% elevated. Hyperkalemia -Mild at 3.4. Repeat magnesium and BMP pending -Hypokalemia corrected Essential hypertension/hyperlipidemia 06/25: BP 158/61. Within BP guidelines for acute stroke. Patient can resume antihypertensive medication from tomorrow after 48 hours as mentioned above. -High intensity dose statin -Lipid profile within normal limit LDL 72. DM-2 Home medications resumed. Average glucose 164 mg/dL. A1c 7.5%. -[facility] last A1c in March was 7.1 -Patient follows with endocrinology in [place] -[facility] with Accu-Cheks as ordered Diabetic neuropathy -Continue home gabapentin DVT prophylaxis -Lovenox subcu daily CODE STATUS -Full code as verified on admission Discharge medication reconciliation done. Discharge follow-up instructions completed. Discharge process discussed with the patient and all questions were answered to patient's satisfaction. Follow with PCP in 1 to 2 weeks Total time spent, exact 35 minutes on discharge meds reconciliation, examination, coordination of care with nurses and ancillary staff, review of imaging and blood test and discussion with the patient on follow-up instructions. Medications at Discharge Home Medications empagliflozin 25 mg tablet (Jardiance) 25 mg PO DAILY dm 09/20/17 pioglitazone 45 mg tablet 45 mg PO DAILY dm 09/20/17 spironolactone 50 mg tablet 50 mg PO DAILY bp 09/20/17 acetaminophen 325 mg tablet (Tylenol) 500 mg PO QHS PRN Mild Pain (scale 0-3)/T>100.7 06/24/24 amlodipine 10 mg-benazepril 40 mg capsule 1 cap PO DAILY 06/24/24 gabapentin 600 mg tablet 600 mg PO QHS neuropathy 06/24/24 insulin aspart U-100 100 unit/mL (3 mL) subcutaneous pen (Novolog FlexPen U-100 Insulin aspart) 25 unit subcut DINNER DM 06/24/24 semaglutide 0.25 mg or 0.5 mg (2 mg/3 mL) subcutaneous pen injector (Ozempic) 0.5 mg subcut .friday DM 06/24/24 aspirin 81 mg tablet,delayed release (Ecotrin Low Strength) 81 mg PO DAILY #30 tabs 06/25/24 clopidogrel 75 mg tablet 75 mg PO DAILY 3 weeks #21 tabs 06/25/24 hydrochlorothiazide 12.5 mg tablet 6.25 mg (1/2 x 12.5 mg) PO DAILY 1 month #30 tabs 06/25/24 rosuvastatin 40 mg tablet 40 mg PO QHS 1 month #30 tabs 06/25/24 Physical Exam Narrative Seen and examined. Patient was admitted and mild language deficit, dysarthria and right-sided facial droop. Physical exam General: Alert, Oriented x3, Cooperative HEENT: Atraumatic, PERRLA, EOMI, Normocephalic Oral: No Gingival or Mucosal Lesions/ Ulcerations Neck: Supple, No JVD, Negative Carotid Bruits Chest wall/Lungs: Air entry diminished in bilateral lung bases. No crepitation/rhonchi Cardiovascular: Regular rate, Regular Rhythm, Normal S1, Normal S2, No M/G/R Abdomen: Bowel Sounds Present, Soft, Non Tender, Non-Distended : No dysuria. No renal angle tenderness. No suprapubic tenderness. Extremities: No edema, Capillary Refill Less than 3 Seconds Skin: No rashes, No breakdown Musculoskeletal: No Tenderness to Palpation of Joints or Extremities Neurological: Cranial nerves II-XII grossly intact, DTR 2+/4. Mild left-sided facial droop. Language deficit and dysarthria has resolved. Psych/Mental Status: Normal Affect, Appropriate. Weight / BMI Weight Weight: 121 lb 15.99 oz Body Mass Index (BMI) 21.6 ABG / Lab / Microbiology Data 06/25/24 06:38 06/25/24 06:38 Laboratory: Laboratory Results - last 24 hr 06/24/24 13:40: WBC 7.8, RBC 4.32, Hgb 12.6, Hct 37.3, MCV 86.3, MCH 29.2, MCHC 33.8, RDW Std Deviation 40.2, RDW Coeff of Gregoria 12.8, Plt Count 263, MPV 10.3, Immature Gran % (Auto) 0.300, Neut % (Auto) 63.7, Lymph % (Auto) 25.0, [place] % (Auto) 8.2, Eos % (Auto) 2.2, Baso % (Auto) 0.6, Absolute Neuts (auto) 5.0, Absolute Lymphs (auto) 1.95, Nucleated RBC % 0, PT 14.1, INR 1.1, APTT 34.1, Sodium 137, Potassium 3.4 L, Chloride 103, Carbon Dioxide 26.0, Anion Gap 8, BUN 19 H, Creatinine 0.96, Estim Creat Clear Calc 35.27, Est GFR (MDRD) Af Amer 72, Est GFR (MDRD) Non-Af 59 L, BUN/Creatinine Ratio 19.7, Glucose 240 H, Calcium 8.9, Troponin I High Sens 11 06/24/24 16:55: POC Glucose 216 H 06/24/24 22:08: POC Glucose 156 H 06/25/24 06:15: POC Glucose 158 H 06/25/24 06:38: WBC 7.5, RBC 4.73, Hgb 13.7, Hct 41.2, MCV 87.1, MCH 29.0, MCHC 33.3, RDW Std Deviation 41.3, RDW Coeff of Gregoria 13.1, Plt Count 281, MPV 10.5, Immature Gran % (Auto) 0.300, Neut % (Auto) 61.6, Lymph % (Auto) 25.0, [place] % (Auto) 9.5, Eos % (Auto) 2.8, Baso % (Auto) 0.8, Absolute Neuts (auto) 4.6, Absolute Lymphs (auto) 1.87, Nucleated RBC % 0, Sodium 141, Potassium 4.2, Chloride 110 H, Carbon Dioxide 26.0, Anion Gap 5, BUN 17, Creatinine 0.96, Estim Creat Clear Calc 38.66, Est GFR (MDRD) Af Amer 71, Est GFR (MDRD) Non-Af 59 L, BUN/Creatinine Ratio 17.6, Glucose 164 H, Hemoglobin A1c 7.5 H, Calcium 9.7, Phosphorus 3.7, Magnesium 2.2, Total Bilirubin 0.40, AST 17, ALT 18, Alkaline Phosphatase 102, Total Protein 7.4, Albumin 3.8, Globulin 3.6, Albumin/Globulin Ratio 1.1, Triglycerides 94, Cholesterol 148, LDL Cholesterol 72, VLDL Cholesterol 19, HDL Cholesterol 57, TSH 2.530 06/25/24 11:37: POC Glucose 189 H Radiography Diagnostic Testing: Radiology Impression Brain CT 06/24/24 13:25 IMPRESSION: Chronic involutional changes of the brain. Findings suggestive of acute to subacute ischemic change involving the posterior left temporal occipital lobe. N.B. : The above Results were Read Back by Lam Rogers MD to Liam Gonzalez DO, and understanding confirmed on 06/24/2024 13:38:24 (ET). Electronically Signed: Lam Rogers MD at 13:40 EST , ADDENDUM: 06/24/24 1347 IMPRESSION: Chronic involutional changes of the brain. Findings suggestive of acute to subacute ischemic change involving the posterior left temporal occipital lobe. N.B. : The above Results were Read Back by Lam Rogers MD to Liam Gonzalez DO, and understanding confirmed on 06/24/2024 13:38:24 (ET). Electronically Signed: Lam Rogers MD at 13:40 EST , Chest X-Ray 06/24/24 13:25 IMPRESSION: No acute abnormality is seen. Electronically Signed: Lam Rogers MD at 14:15 EST , Head/Neck CTA 06/24/24 13:26 IMPRESSION: Minimal plaque formation at the origin of the right internal carotid artery. Calcific plaques along the course of the left vertebral artery. N.B. : The above Results were Read Back by Lam Rogers MD to Dr Lisa DO, and understanding confirmed on 06/24/2024 13:58:01 (ET). Electronically Signed: Lam Rogers MD at 13:59 EST , ADDENDUM: 06/24/24 1406 IMPRESSION: Minimal plaque formation at the origin of the right internal carotid artery. Calcific plaques along the course of the left vertebral artery. N.B. : The above Results were Read Back by Lam Rogers MD to Dr Lisa DO, and understanding confirmed on 06/24/2024 13:58:01 (ET). Electronically Signed: Lam Rogers MD at 13:59 EST , Brain MRI 06/24/24 14:49 IMPRESSION: 1. Focal 5 mm acute nonhemorrhagic infarct in the LEFT internal capsule/posterior limb. 2. No other evidence of mass, hemorrhage, or acute territorial infarct. 3. Diffuse involutional changes and moderate to extensive chronic microvascular deep white matter disease. 4. Diffuse ethmoid sinus mucosal thickening. Electronically Signed: Cirilo Ruelas MD at 20:22 EST , ADDENDUM: 06/24/242058 IMPRESSION: 1. Focal 5 mm acute nonhemorrhagic infarct in the LEFT internal capsule/posterior limb. 2. No other evidence of mass, hemorrhage, or acute territorial infarct. 3. Diffuse involutional changes and moderate to extensive chronic microvascular deep white matter disease. 4. Diffuse ethmoid sinus mucosal thickening. N.B. : Shelli Pimentel RN, confirmed on 06/24/2024 20:52:46 (ET) that the referring physician received the results and does not require a verbal communication. Electronically Signed: Cirilo Ruelas MD at 20:22 EST , Echocardiogram 06/24/24 14:49 Interpretation Summary The estimated ejection fraction is 55-60 %. LV systolic function is normal No significant valvular abnormality No pericardial fusion. Negative bubble study/no intracardiac shunt No prior echo to compare Ordering Physician: Sapphire Burch Referring Physician: NURYS HOLLEY Performed By: Akila Minaya RCS D/C Instructions Discharge Diet: 1800 Calorie Control Diet and 2000 mg Sodium Diet Weight Bearing Status: Weight bearing as tolerated Call your doctor if you observe: Fever of 101 or Higher, Coldness, Increased Pain, Numbness or Tingling, Change in Color, Inability to urinate, Inability to have a bowel movement, Shortness of breath, Dizziness, Fainting spells, Swelling in the ankles, Chest pain, Prolonged hiccupping, Increased palpitations (irregular heartbeat) and Calf discomfort DC O2, CPAP, BIPAP Needs Additional Home O2 Discharge instructions: No DC home with Oxygen: No When: IN 2 WEEKS Meaningful Use Info Meaningful Use Meaningful Use Diagnoses (Choose all that apply): Ischemic CVA CVA Therapy Assessed for PT,OT and/or ST?: Yes Ischemic Stroke Antithrombotic order at d/c?: Yes Dx of Atrial fib/flutter?: No Anticoagulant at discharge?: Yes Statin Dosing Therapy Reference: STATIN DOSE THERAPY REFERENCE: * Patients > 75 years receive moderate or high dose statin therapy. * Patients 75 years or YOUNGER should receive HIGH intensity statin dose unless contraindicated. You will be required to document reason for non-treatment if statin daily dose does not meet guidelines. HIGH DOSE STATIN THERAPY DAILY Atorvastatin > than or = to 40 mg Rosuvastatin > than or = to 20 mg Amlodipine + Atorvastatin > than or = to 2.5/40 mg Ezetimibe + Simvastatin 10/80 mg Simvastatin 80mg Statins at discharge?: Yes Primary Dx Acute Ischemic CVA?: Yes Discharge Plan Admission Admit Date/Time: 06/24/24 14:41 Primary Reason for Your Visit: Acute ischemic stroke Attending Provider: Robin Mcdowell Primary Care Provider: Nurys Holley Consulting Providers: Jeffy Beck; Ani Gongora; Colleen Brown; Donna Kincaid; Felipa Hooks; John Garcia; Brisa Meier; Rajiv Mcdaniels; Brett Mendoza; Henok Cunningham; Josseline Aldrich; Terrell Louise; Anahi Jensen; David Holly; Delmy Brody; Aristeo Luke; Lg Amaya; Rod Gamino; Cora Burch; Nestor Ramirez; Sapphire Burch Instructions Additional Instructions / Restrictions: Advised to follow with PCP in 1 week to uptitrate antihypertensive medication Discharge Orders/Prescriptions Prescriptions: New clopidogrel 75 mg Tablet 75 mg PO DAILY 21 Days Qty: 21 3RF aspirin [Ecotrin Low Strength] 81 mg tablet,delayed release (DR/EC) 81 mg PO DAILY Qty: 30 3RF hydrochlorothiazide 12.5 mg tablet 6.25 mg PO DAILY 30 Days Qty: 30 1RF Rx Instructions: Hold for SBP less than 130 mmHg rosuvastatin 40 mg tablet 40 mg PO QHS 30 Days Qty: 30 2RF Continued spironolactone 50 MG tablet 50 mg PO DAILY Patient Comments: pioglitazone 45 MG tablet 45 mg PO DAILY Jardiance 25 MG tablet 25 mg PO DAILY gabapentin 600 mg tablet 600 mg PO QHS amlodipine-benazepril 10-40 mg capsule 1 cap PO DAILY acetaminophen [Tylenol] 325 MG tablet 500 mg PO QHS PRN (Reason: Mild Pain (scale 0-3)/T>100.7) Ozempic 0.25 mg or 0.5 mg (2 mg/3 mL) pen injector 0.5 mg subcut .friday insulin aspart U-100 [Novolog FlexPen U-100 Insulin] 100 unit/mL (3 mL) insulin pen 25 unit subcut DINNER Discontinued rosuvastatin 20 MG tablet 20 mg PO DAILY Referrals / Follow Up: Nurys Holley MD [Primary Care Provider] - Within 1 Week Pramod Hernandez MD [Non-Staff -Ordering Privileges] - Within 1 Month Disposition Disposition (needs filled in before D/C Order can be placed): Home, Self Care Charges/Coding Visit Charges Inpatient E&M: 43009 Disch Hosp >30min
--- NOTE | 2024-06-25 13:15 | STROKE.CONS ---
Assessment and Plan: Stroke Assessment/Plan MELCHOR HERZOG is a 78 F with a history of hypertension and diabetes who presents for evaluation of right facial droop and dysarthria Neurological examination shows mild right facial droop and dysarthria. Neuroimaging shows a small left hemispheric subcortical infarct. - Agree with dual antiplatelet therapy. Would treat with asa + clopidorel x 21 total days, then discontinue clopidogrel and continue aspirin indefinnitely. - Would recommend increasing rosuvastatin to 40mg qhs - BP is her most important risk factor and halfway BP goal is < 130/85. In the short term, its ok for her BP to be a bit higher, so I wouldn't necessarily adjust her meds now, but instead, would recommend that she follow closely with her PCP and will likely require up-titration of her existing BP regimen - With normal TTE (including normal left atrial size) and a small subcortical infarct, this presetnation most lkely represents small vessel disease and, thus, a fib is an unlikely mechanism so its reasonable to not do outpatinet cardiac monitoring. - Discussed prognosis and likely recovery - May benefit from speech therapy to hasten recovery - Recommend to call 911 with new focal neurologic symptoms if they occur in the future. HPI Consult Data Date of Consult: 06/25/24 HPI Narrative HPI Narrative: MELCHOR HERZOG, is a 78 F who presents after awakening yesterday with facial droop and dysarthria. Ms. Herzog initially noted sympotms about one hour after awakening, and isn't entirely certain if they were present upon awakening as she was home alone. She thinks that she initially tried to speak to herself and realized that her speech was slurred. Subsequently, she looked in the mirror and noted that the right side of her face was moving less than the left. Since onset, she doesn't think that her symptoms have substantively improved or worsened, but might be slightly better. Eventually she came into the ED and was admitted. No other focal neurologic symtoms and no other complaints. FORMERLY [facility] Medical History Hypertension Diabetes mellitus type 2 in nonobese Diabetic neuropathy Dyslipidemia Diabetes Home Medications ?Medication ?Instructions ?Recorded ?Last Taken ?Type empagliflozin 25 mg tablet 25 mg PO DAILY dm 09/20/17 06/24/24 History (Jardiance) pioglitazone 45 mg tablet 45 mg PO DAILY dm 09/20/17 06/24/24 History rosuvastatin 20 mg tablet 20 mg PO DAILY cholesterol 09/20/17 06/24/24 History spironolactone 50 mg tablet 50 mg PO DAILY bp 09/20/17 06/24/24 History acetaminophen 325 mg tablet 500 mg PO QHS PRN Mild Pain (scale 06/24/24 06/23/24 History (Tylenol) 0-3)/T>100.7 amlodipine 10 mg-benazepril 40 mg 1 cap PO DAILY 06/24/24 06/24/24 History capsule gabapentin 600 mg tablet 600 mg PO QHS neuropathy 06/24/24 06/23/24 History insulin aspart U-100 100 unit/mL 25 unit subcut DINNER DM 06/24/24 06/23/24 History (3 mL) subcutaneous pen (Novolog FlexPen U-100 Insulin aspart) semaglutide 0.25 mg or 0.5 mg (2 0.5 mg subcut .friday DM 06/24/24 06/18/24 History mg/3 mL) subcutaneous pen injector (Ozempic) aspirin 81 mg tablet,delayed 81 mg PO DAILY #30 tabs 06/25/24 Unknown Rx release (Ecotrin Low Strength) clopidogrel 75 mg tablet 75 mg PO DAILY 3 weeks #21 tabs 06/25/24 Unknown Rx Allergy/AdvReac Type Severity Reaction Status Date / Time No Known Allergies Allergy Verified 06/24/24 13:24 Family History Other Diabetes Heart disease Surgical History no surgical history Social History household members: none housing: house Smoking Status: Unknown if ever smoked alcohol intake: never substance use type: does not use Vital Signs Vital Signs Vital Signs: 06/24/24 13:22 06/24/24 13:25 06/24/24 13:27 Temperature 96.6 F L Temperature Source Temporal Pulse Rate 83 83 Pulse Strength Respiratory Rate 18 18 Respiratory Effort Respiratory Depth Respiratory Pattern Blood Pressure 203/97 H 203/97 H Blood Pressure Mean 132 132 Blood Pressure Source Blood Pressure Position Blood Pressure Location Pulse Ox 99 99 Oxygen Delivery Method Room Air Room Air 06/24/24 13:38 06/24/24 13:55 06/24/24 14:25 Temperature 98 F Temperature Source Oral Pulse Rate 79 77 78 Pulse Strength Respiratory Rate 17 18 20 H Respiratory Effort Respiratory Depth Respiratory Pattern Blood Pressure 163/93 H 193/84 H 182/88 H Blood Pressure Mean 116 120 119 Blood Pressure Source Blood Pressure Position Blood Pressure Location Pulse Ox 97 98 98 Oxygen Delivery Method Room Air Room Air Room Air 06/24/24 14:30 06/24/24 15:00 06/24/24 15:30 Temperature Temperature Source Pulse Rate 78 81 79 Pulse Strength Respiratory Rate 20 H 27 H 19 H Respiratory Effort Respiratory Depth Respiratory Pattern Blood Pressure 182/88 H 186/92 H 172/66 H Blood Pressure Mean 119 123 101 Blood Pressure Source Blood Pressure Position Blood Pressure Location Pulse Ox 98 97 95 Oxygen Delivery Method Room Air Room Air Room Air 06/24/24 15:48 06/24/24 16:19 06/24/24 16:20 Temperature 98.8 F 98.4 F Temperature Source Oral Pulse Rate 79 79 Pulse Strength Respiratory Rate 19 H 18 Respiratory Effort Respiratory Depth Respiratory Pattern Blood Pressure 172/66 H 171/93 H Blood Pressure Mean 101 119 Blood Pressure Source Monitor Blood Pressure Position Semi-Fowlers Blood Pressure Location Left Arm Pulse Ox 96 100 Oxygen Delivery Method Room Air Room Air 06/24/24 20:25 06/24/24 22:00 06/24/24 22:00 Temperature 96.3 F L Temperature Source Temporal Pulse Rate 72 Pulse Strength Normal (2+) Respiratory Rate 18 Respiratory Effort Respiratory Depth Respiratory Pattern Blood Pressure 194/86 H Blood Pressure Mean 122 Blood Pressure Source Monitor Blood Pressure Position Semi-Fowlers Blood Pressure Location Left Arm Pulse Ox 96 97 Oxygen Delivery Method Room Air Room Air 06/24/24 22:00 06/25/24 02:00 06/25/24 06:00 Temperature 95.9 F L 96.0 F L Temperature Source Temporal Temporal Pulse Rate 71 71 Pulse Strength Respiratory Rate 18 18 Respiratory Effort Normal Respiratory Depth Normal Respiratory Pattern Normal Blood Pressure 133/77 H 165/75 H Blood Pressure Mean 95 105 Blood Pressure Source Monitor Monitor Blood Pressure Position Semi-Fowlers Semi-Fowlers Blood Pressure Location Left Arm Left Arm Pulse Ox 97 98 Oxygen Delivery Method Room Air Room Air Room Air 06/25/24 07:22 06/25/24 07:55 06/25/24 09:33 Temperature 98 F Temperature Source Oral Pulse Rate 80 Pulse Strength Respiratory Rate 17 Respiratory Effort Normal Non-Labored Respiratory Depth Normal Respiratory Pattern Normal Blood Pressure 162/70 H Blood Pressure Mean 100 Blood Pressure Source Monitor Blood Pressure Position Blood Pressure Location Pulse Ox 96 97 Oxygen Delivery Method Room Air Room Air Room Air Weight Weight: 55.338 kg Body Mass Index (BMI) 21.6 NIHSS NIHSS Nursing Documentation NIHSS Nursing Documentation: NIHSS: Ischemic Stroke/TIA Start: 06/24/24 16:16 Text: For PCU Patients: NIH and Neuro Check every 4 Status: Active hours, PRN and with change in RN caregiver. Freq: [id number] Protocol: Activity Type Activity Date Activity User E-sign Co-sign Detail Recorded Client Recorded Date Recorded By Document 06/25/24 09:35 [id number] 06/25/24 09:57 06/25/24 09:35 NIH Stroke Scale [NIHSS] A score of 0 is normal or asymptomatic . Total possible score is 42. Inpatient: RN or Physician to activate a stroke alert for onset of new stroke symptoms or with NIHSS increase >/= 3 points. Following change in neurological status, NIHSS will be performed per physician order or more frequently PRN. -1a. Level of Consciousness Alert; keenly responsive -1b. LOC Questions Answers BOTH questions correctly. -1c. LOC Commands Performs both tasks correctly . -2. Best Gaze Normal -3. Visual No visual loss -4. Facial Palsy Minor paralysis (flattened nasolabial fold , asymmetry on smiling) -5a. Left Arm No drift; arm holds 90 (or 45 ) degrees for full 10 seconds -5b. Right Arm No drift; arm holds 90 (or 45 ) degrees for full 10 seconds -6a. Left Leg No drift; leg holds 30-degree position for full 5 seconds -6b. Right Leg No drift; leg holds 30-degree position for full 5 seconds -7. Limb Ataxia Absent -8. Sensory Normal; no sensory loss -9. Best Language No aphasia; normal -10. Dysarthria Mild-to- moderate dysarthria; -11. Extinction and Inattention No abnormality -Total 2 Query Text:A score of 0 is normal or asymptomatic. Total possible score is 42 . ED: Notify Physician for NIHSS increase by > / = 3 points. Inpatient: RN or Physician to activate a stroke alert for NIHSS increase of > / = 3 points. Coma Scale [Assess] -Eye Opening Spontaneous -Motor Obeys Commands -Verbal Oriented [Total] -Coma Scale Total 15 NIHSS 1a. Level of Consciousness: Alert; keenly responsive 1b. LOC Questions: Answers BOTH questions correctly. 1c. LOC Commands: Performs both tasks correctly. 2. Best Gaze: Normal 3. Visual: No visual loss 4. Facial Palsy: Minor paralysis (flattened nasolabial fold, asymmetry on smiling) 5a. Left Arm: No drift; arm holds 90 (or 45) degrees for full 10 seconds 5b. Right Arm: No drift; arm holds 90 (or 45) degrees for full 10 seconds 6a. Left Leg: No drift; leg holds 30-degree position for full 5 seconds 6b. Right Leg: No drift; leg holds 30-degree position for full 5 seconds 7. Limb Ataxia: Absent 8. Sensory: Normal; no sensory loss 9. Best Language: No aphasia; normal 10. Dysarthria: Normal 11. Extinction and Inattention: No abnormality Total: 1 Lab / Micro Data 06/25/24 06:38 06/25/24 06:38 Labs: Laboratory Results - last 24 hr 06/24/24 13:40: WBC 7.8, RBC 4.32, Hgb 12.6, Hct 37.3, MCV 86.3, MCH 29.2, MCHC 33.8, RDW Std Deviation 40.2, RDW Coeff of Gregoria 12.8, Plt Count 263, MPV 10.3, Immature Gran % (Auto) 0.300, Neut % (Auto) 63.7, Lymph % (Auto) 25.0, [place] % (Auto) 8.2, Eos % (Auto) 2.2, Baso % (Auto) 0.6, Absolute Neuts (auto) 5.0, Absolute Lymphs (auto) 1.95, Nucleated RBC % 0, PT 14.1, INR 1.1, APTT 34.1, Sodium 137, Potassium 3.4 L, Chloride 103, Carbon Dioxide 26.0, Anion Gap 8, BUN 19 H, Creatinine 0.96, Estim Creat Clear Calc 35.27, Est GFR (MDRD) Af Amer 72, Est GFR (MDRD) Non-Af 59 L, BUN/Creatinine Ratio 19.7, Glucose 240 H, Calcium 8.9, Troponin I High Sens 11 06/24/24 16:55: POC Glucose 216 H 06/24/24 22:08: POC Glucose 156 H 06/25/24 06:15: POC Glucose 158 H 06/25/24 06:38: WBC 7.5, RBC 4.73, Hgb 13.7, Hct 41.2, MCV 87.1, MCH 29.0, MCHC 33.3, RDW Std Deviation 41.3, RDW Coeff of Gregoria 13.1, Plt Count 281, MPV 10.5, Immature Gran % (Auto) 0.300, Neut % (Auto) 61.6, Lymph % (Auto) 25.0, [place] % (Auto) 9.5, Eos % (Auto) 2.8, Baso % (Auto) 0.8, Absolute Neuts (auto) 4.6, Absolute Lymphs (auto) 1.87, Nucleated RBC % 0, Sodium 141, Potassium 4.2, Chloride 110 H, Carbon Dioxide 26.0, Anion Gap 5, BUN 17, Creatinine 0.96, Estim Creat Clear Calc 38.66, Est GFR (MDRD) Af Amer 71, Est GFR (MDRD) Non-Af 59 L, BUN/Creatinine Ratio 17.6, Glucose 164 H, Hemoglobin A1c 7.5 H, Calcium 9.7, Phosphorus 3.7, Magnesium 2.2, Total Bilirubin 0.40, AST 17, ALT 18, Alkaline Phosphatase 102, Total Protein 7.4, Albumin 3.8, Globulin 3.6, Albumin/Globulin Ratio 1.1, Triglycerides 94, Cholesterol 148, LDL Cholesterol 72, VLDL Cholesterol 19, HDL Cholesterol 57, TSH 2.530 06/25/24 11:37: POC Glucose 189 H Imaging Radiology Impression Brain CT 06/24/24 13:25 IMPRESSION: Chronic involutional changes of the brain. Findings suggestive of acute to subacute ischemic change involving the posterior left temporal occipital lobe. N.B. : The above Results were Read Back by Lam Rogers MD to Liam Gonzalez DO, and understanding confirmed on 06/24/2024 13:38:24 (ET). Electronically Signed: Lam Rogers MD at 13:40 EST , ADDENDUM: 06/24/24 1347 IMPRESSION: Chronic involutional changes of the brain. Findings suggestive of acute to subacute ischemic change involving the posterior left temporal occipital lobe. N.B. : The above Results were Read Back by Lam Rogers MD to Liam Gonzalez DO, and understanding confirmed on 06/24/2024 13:38:24 (ET). Electronically Signed: Lam Rogers MD at 13:40 EST , Chest X-Ray 06/24/24 13:25 IMPRESSION: No acute abnormality is seen. Electronically Signed: Lam Rogers MD at 14:15 EST , Head/Neck CTA 06/24/24 13:26 IMPRESSION: Minimal plaque formation at the origin of the right internal carotid artery. Calcific plaques along the course of the left vertebral artery. N.B. : The above Results were Read Back by Lam Rogers MD to Dr Lisa DO, and understanding confirmed on 06/24/2024 13:58:01 (ET). Electronically Signed: Lam Rogers MD at 13:59 EST , ADDENDUM: 06/24/24 1406 IMPRESSION: Minimal plaque formation at the origin of the right internal carotid artery. Calcific plaques along the course of the left vertebral artery. N.B. : The above Results were Read Back by Lam Rogers MD to Dr Lisa DO, and understanding confirmed on 06/24/2024 13:58:01 (ET). Electronically Signed: Lam Rogers MD at 13:59 EST , Brain MRI 06/24/24 14:49 IMPRESSION: 1. Focal 5 mm acute nonhemorrhagic infarct in the LEFT internal capsule/posterior limb. 2. No other evidence of mass, hemorrhage, or acute territorial infarct. 3. Diffuse involutional changes and moderate to extensive chronic microvascular deep white matter disease. 4. Diffuse ethmoid sinus mucosal thickening. Electronically Signed: Cirilo Ruelas MD at 20:22 EST , ADDENDUM: 06/24/242058 IMPRESSION: 1. Focal 5 mm acute nonhemorrhagic infarct in the LEFT internal capsule/posterior limb. 2. No other evidence of mass, hemorrhage, or acute territorial infarct. 3. Diffuse involutional changes and moderate to extensive chronic microvascular deep white matter disease. 4. Diffuse ethmoid sinus mucosal thickening. N.B. : Shelli Pimentel RN, confirmed on 06/24/2024 20:52:46 (ET) that the referring physician received the results and does not require a verbal communication. Electronically Signed: Cirilo Ruelas MD at 20:22 EST , Echocardiogram 06/24/24 14:49 Interpretation Summary The estimated ejection fraction is 55-60 %. LV systolic function is normal No significant valvular abnormality No pericardial fusion. Negative bubble study/no intracardiac shunt No prior echo to compare Ordering Physician: Sapphire Burch Referring Physician: NURYS BARGER Performed By: Akila Minaya RCS Active Medications Active Medications Active Medications: Current Medications Generic Name Dose Route Start Last Admin Trade Name Freq PRN Reason Stop Dose Admin Acetaminophen 650 mg 06/24/24 16:16 Acetaminophen 325 Mg Tablet PO Q6H PRN PRN Pain 1-10 Or Fever>100.7 Atorvastatin Calcium 80 mg 06/24/24 22:00 06/24/24 22:09 Atorvastatin Calcium 80 Mg Tablet PO 80 mg QHS MAGNOLIA Administration Clopidogrel Bisulfate 75 mg 06/25/24 10:00 06/25/24 10:11 Clopidogrel Bisulfate 75 Mg Tablet PO 75 mg DAILY MAGNOLIA Administration Empagliflozin 25 mg 06/25/24 10:00 06/25/24 10:11 Empagliflozin 25 Mg Tablet PO 25 mg DAILY MAGNOLIA Administration Enoxaparin Sodium 40 mg 06/25/24 10:00 06/25/24 10:12 Enoxaparin 40 Mg/0.4 Ml Syringe SC 40 mg DAILY MAGNOLIA Administration Gabapentin 600 mg 06/24/24 22:00 06/24/24 22:09 Gabapentin 600 Mg Tablet PO 600 mg QHS MAGNOLIA Administration Glucagon 1 mg 06/24/24 16:16 Glucagon 1 Mg/Ml Syringe IM X1 PRN HYPOGLYCEMIA Protocol Hydralazine HCl 5 mg 06/24/24 16:16 Hydralazine 20 Mg/Ml Vial IV 06/25/24 16:16 Q30M PRN maintain BP parameters with HR <60 Dextrose 250 mls @ 0 mls/hr 06/24/24 16:16 Dextrose 10%-Water IV .Q0M PRN HYPOGLYCEMIA Protocol As Directed Insulin Human Lispro 0 unit 06/24/24 16:16 06/25/24 12:05 Insulin Lispro 100 Unit/Ml Insuln.Pen SC Not Given ACHS MAGNOLIA Protocol Labetalol HCl 10 - 20 mg 06/24/24 16:16 Labetalol (Prefilled) 20 Mg/4 Ml Vial IV 06/25/24 16:16 Q10M PRN PRN maintain BP parameters with HR >/=60 Nutritional Formula (Lactose Free) 120 ml 06/25/24 22:00 Glucerna Shake 120 Ml Liquid PO 4X/DAY MAGNOLIA Ondansetron HCl 4 mg 06/24/24 16:16 Ondansetron 4 Mg/2 Ml Vial IV Q8H PRN PRN NAUSEA/VOMITING Pioglitazone HCl 45 mg 06/25/24 10:00 06/25/24 10:11 Pioglitazone Hydrochloride 45 Mg Tablet PO 45 mg DAILY MAGNOLIA Administration Sodium Chloride 10 - 40 ml 06/24/24 16:39 06/25/24 10:20 0.9% Saline Lock 10 Ml Syringe IV 10 ml UD PRN Administration SALINE FLUSH
[2024-06-25 13:30] VITALS: BP 158/61; PULSE 78; RESP 12; TEMP 37; O2SAT 98
--- NOTE | 2024-06-25 14:49 | PHA.DC_ITS ---
Pharmacy [facility] Pharm[facility] Service has performed discharge medication reconciliation and counseling for this patient. The patient's discharge medication list was reviewed for discrepancies and discrepancies were resolved. The patient was counseled on the following discharge medications and changes in medications for homegoing were reviewed. The Reason for Use, instructions for use, and potential side effects were reviewed for all new medications. The patient's questions regarding all of their medications were answered. 1. Aspirin 81 mg PO daily 2. Clopidogrel 71 mg PO Daily x 21 days 2. Hydrochlorothiazide 6.25 mg PO daily 3. Rosuvastatin 40 mg PO QHS The patient was able to verbally demonstrate an understanding of their discharge medications. The patient was counselled on new medications by pharmacy technician per diem Donnie. Medications at Discharge Home Medications empagliflozin 25 mg tablet (Jardiance) 25 mg PO DAILY dm 09/20/17 pioglitazone 45 mg tablet 45 mg PO DAILY dm 09/20/17 spironolactone 50 mg tablet 50 mg PO DAILY bp 09/20/17 acetaminophen 325 mg tablet (Tylenol) 500 mg PO QHS PRN Mild Pain (scale 0- 3)/T>100.7 06/24/24 amlodipine 10 mg-benazepril 40 mg capsule 1 cap PO DAILY blood pressure 06/24/24 gabapentin 600 mg tablet 600 mg PO QHS neuropathy 06/24/24 insulin aspart U-100 100 unit/mL (3 mL) subcutaneous pen (Novolog FlexPen U-100 Insulin aspart) 25 unit subcut DINNER DM 06/24/24 semaglutide 0.25 mg or 0.5 mg (2 mg/3 mL) subcutaneous pen injector (Ozempic) 0.5 mg subcut .friday DM 06/24/24 aspirin 81 mg tablet,delayed release (Ecotrin Low Strength) 81 mg PO DAILY #30 tabs 06/25/24 clopidogrel 75 mg tablet 75 mg PO DAILY 3 weeks #21 tabs 06/25/24 hydrochlorothiazide 12.5 mg tablet 6.25 mg (1/2 x 12.5 mg) PO DAILY 1 month #30 tabs 06/25/24 rosuvastatin 40 mg tablet 40 mg PO QHS 1 month #30 tabs 06/25/24
[2024-06-25 15:00] VITALS: BMI 21.6
--- NOTE | 2024-06-25 15:25 | CASEMGMT ---
Patient has order for discharge. Therapy recommending outaptient therapy and walker at [facility]. KATIANA FUNEZ in to discuss needs at discharge, family at bedside. Patient states she wants to see how she does at home before starting outpatient therapy. Patient and family agreeable to take outpatient therapy and schedule if they decide they want to complete therapy. KATIANA FUNEZ discussed walker at discharge and prefers [employer] for walker. Patient and family deny further needs or concerns. KATIANA FUNEZ updated hospitalist, scripts received for outpatient therapy and walker. KATIANA FUNEZ sent referral to [employer] via [facility] and arranged for walker to be delivered to patient's room. KATIANA FUNEZ provided script for outpatient therapy to family. Patient and family had no further questions or concerns.
[2024-06-28 16:11] LABS: Bedside Glucose 245 mg/dL (74-106)
== END 2024-06-25 16:26 | disposition home or self-care (01) ==
LOC: ED 14:52 → PCU 15:14
PROVIDERS: Admitting Provider Internal Medicine; Emergency Provider Emergency Medicine; PCP Family Medicine; Visit Provider Internal Medicine
DX: I63.89 Other cerebral infarction (principal); E11.40 Type 2 diabetes mellitus with diabetic neuropathy, unspecified; Z79.4 Long term (current) use of insulin; R47.1 Dysarthria and anarthria; Z79.84 Long term (current) use of oral hypoglycemic drugs; R29.702 NIHSS score 2; Z79.85 Long-term (current) use of injectable non-insulin antidiabetic drugs; E78.5 Hyperlipidemia, unspecified; R47.81 Slurred speech; I10 Essential (primary) hypertension; Z79.899 Other long term (current) drug therapy; Z79.02 Long term (current) use of antithrombotics/antiplatelets; R29.810 Facial weakness
CPT/HCPCS: 36415; 70450; 70496; 70498; 70551; 71045; 80048; 80053; 80061; 82962; 83036; 83735; 84100; 84443; 84484; 85025; 85610; 85730; 92507; 93005; 93306; 94668; 94762; 96372; 97162; 97166; 97802; 99221; 99285; Q9967; A4216; G0378

== ENCOUNTER → 2024-08-13 | Outpatient (CLI) | payer MEDICARE, SELFPAY ==
[2024-08-13 11:18] LABS: Hemoglobin A1c 9.3 % (3.8-5.6)
[2024-08-13 12:00] LABS: Microalbumin:Creatinine Ratio 358.3 mg/g CRE (<30 mg/g CRE)
[2024-08-13 12:14] LABS: Vitamin D,25 Hydroxy 43.9 ng/mL
[2024-08-13 12:42] LABS: ALB/GLOB Ratio 0.9 RATIO (0.9-2.4); AST(SGOT) 28 U/L (15-37); Alanine Aminotransfer ALT/SGPT 37 U/L (13-56); Albumin, Serum 3.9 g/dL (3.2-5.0); Alkaline Phosphatase 109 U/L (45-117); Anion Gap 7 (5-15); BUN 33 mg/dL (7-18); BUN/Creat Ratio 27.3 RATIO (10-20); Chloride 105 mmol/L (98-107); Cholesterol 166 mg/dL (200); Creatinine, Serum 1.21 mg/dL (0.55-1.02); EST Glomerular Filtration Rate 45 mL/min (>60); Est Glom Filt Rate - Afr Amer 55 mL/min (>60); Globulin 4.2 g/dL (2.2-4.2); Glucose 218 mg/dL (74-106); High Density Lipoprotein 49 mg/dL; Protein, Total 8.1 g/dL (6.4-8.2); Sodium Level 137 mmol/L (136-145); Triglycerides 167 mg/dL; Very Low Density Lipoprotein 33 mg/dL (5-40)
== END | disposition home or self-care (01) ==
LOC: MTLAB 09:19
PROVIDERS: PCP Family Medicine; Referring Provider Internal Medicine Endocrinology, Diabetes & Metabolism; Visit Provider Internal Medicine Endocrinology, Diabetes & Metabolism
DX: E11.65 Type 2 diabetes mellitus with hyperglycemia (principal); E11.22 Type 2 diabetes mellitus with diabetic chronic kidney disease; I12.9 Hypertensive chronic kidney disease with stage 1 through stage 4 chronic kidney disease, or unspecified chronic kidney disease; N18.9 Chronic kidney disease, unspecified; E55.9 Vitamin D deficiency, unspecified; Z91.199 Patient's noncompliance with other medical treatment and regimen due to unspecified reason
CPT/HCPCS: 36415; 80053; 80061; 82043; 82306; 82570; 83036; 84443

== ENCOUNTER → 2024-09-02 | Outpatient (CLI) | payer MEDICARE, SELFPAY ==
[2024-09-04 16:08] LABS: Deamidated Gliadin IgA 3 units (0-19); Deamidated Gliadin IgG 3 units (0-19); Immunoglobulin A 234 mg/dL (64-422); t-Transglutaminase IgA <2 U/mL (0-3)
== END | disposition home or self-care (01) ==
LOC: MTLAB 11:24
PROVIDERS: PCP Family Medicine; Referring Provider Internal Medicine Endocrinology, Diabetes & Metabolism; Visit Provider Internal Medicine Endocrinology, Diabetes & Metabolism
DX: E11.65 Type 2 diabetes mellitus with hyperglycemia (principal); E11.22 Type 2 diabetes mellitus with diabetic chronic kidney disease; I12.9 Hypertensive chronic kidney disease with stage 1 through stage 4 chronic kidney disease, or unspecified chronic kidney disease; N18.9 Chronic kidney disease, unspecified; E55.9 Vitamin D deficiency, unspecified; Z91.199 Patient's noncompliance with other medical treatment and regimen due to unspecified reason
CPT/HCPCS: 36415; 82784; 83516

== ENCOUNTER → 2024-12-21 | Outpatient (CLI) | payer MEDICARE, SELFPAY ==
[2024-12-21 10:41] LABS: Hemoglobin 12.5 g/dL (12.0-15.0); Mean Corp Hgb Conc 32.1 g/dL (32-36); Mean Corpuscular Hgb 29.8 pg (27.0-32.0); Mean Corpuscular Volume 92.9 fL (81-99); Mean Platelet Vol. 10.9 fl (6.2-12.0); Platelet Count 282 K/mm3 (150-450); RBC Distribution Width CV 12.4 % (11.6-14.6); White Blood Count 7.4 K/mm3 (4.4-11.0)
[2024-12-21 11:09] LABS: Hemoglobin A1c 8.6 % (<=5.6)
[2024-12-21 11:30] LABS: ALB/GLOB Ratio 1.3 RATIO (0.9-2.4); AST(SGOT) 25 U/L (<=31); Alanine Aminotransfer ALT/SGPT 15 U/L (<=34); Albumin, Serum 4.4 g/dL (3.4-4.8); Alkaline Phosphatase 96 U/L (35-104); Anion Gap 13 (5-15); BUN 30 mg/dL (4-19); BUN/Creat Ratio 26.5 RATIO (10-20); Chloride 105 mmol/L (98-108); Cholesterol 136 mg/dL (<=200); Creatinine, Serum 1.14 mg/dL (0.70-1.20); EST Glomerular Filtration Rate 48 (>60); Free T3 2.9 pg/mL (2.18-3.98); Globulin 3.4 g/dL (2.2-4.2); Glucose 176 mg/dL (70-99); High Density Lipoprotein 52 mg/dL; Low Density Lipoprotein Calc. 63 mg/dL; Potassium 4.1 mmol/L (3.3-5.1); Protein, Total 7.8 g/dL (5.9-8.4); Sodium Level 142 mmol/L (133-145); Total Bilirubin 0.28 mg/dL (0.00-1.30); Triglycerides 103 mg/dL; Very Low Density Lipoprotein 21 mg/dL (5-40); Vitamin D,25 Hydroxy 39.7 ng/mL (30-100)
== END | disposition home or self-care (01) ==
LOC: MTLAB 08:28
PROVIDERS: PCP Family Medicine; Referring Provider Internal Medicine Endocrinology, Diabetes & Metabolism; Visit Provider Internal Medicine Endocrinology, Diabetes & Metabolism
DX: E11.65 Type 2 diabetes mellitus with hyperglycemia (principal); E11.22 Type 2 diabetes mellitus with diabetic chronic kidney disease; I12.9 Hypertensive chronic kidney disease with stage 1 through stage 4 chronic kidney disease, or unspecified chronic kidney disease; N18.9 Chronic kidney disease, unspecified; E55.9 Vitamin D deficiency, unspecified; Z91.199 Patient's noncompliance with other medical treatment and regimen due to unspecified reason
CPT/HCPCS: 36415; 80053; 80061; 82043; 82306; 82570; 83036; 84439; 84443; 84481; 85027

== ENCOUNTER → 2025-03-29 | Outpatient (CLI) | payer MEDICARE, SELFPAY ==
[2025-03-29 10:27] LABS: Creatinine, Urine (random) 166.00 mg/dL (28.00-217.00)
[2025-03-29 10:33] LABS: AST(SGOT) 22 U/L (<=31); Alanine Aminotransfer ALT/SGPT 13 U/L (<=34); Albumin, Serum 4.4 g/dL (3.4-4.8); Alkaline Phosphatase 88 U/L (35-104); Anion Gap 13 (5-15); BUN 26 mg/dL (4-19); BUN/Creat Ratio 29.8 RATIO (10-20); Calcium,Total 10.0 mg/dL (7.6-11.0); Carbon Dioxide 24.1 mmol/L (21.0-32.0); Chloride 107 mmol/L (98-108); Cholesterol 119 mg/dL (<=200); Free T3 2.9 pg/mL (2.18-3.98); Globulin 3.1 g/dL (2.2-4.2); Glucose 67 mg/dL (70-99); Low Density Lipoprotein Calc. 48 mg/dL; Potassium 3.7 mmol/L (3.3-5.1); Triglycerides 120 mg/dL; Very Low Density Lipoprotein 24 mg/dL (5-40); cholesterol:hdl ratio screen 2.52
[2025-03-29 10:39] LABS: Microalbumin,Random Urine 843.0 mg/L (<20 mg/L)
== END | disposition home or self-care (01) ==
LOC: MTLAB 08:43
PROVIDERS: PCP Family Medicine; Referring Provider Internal Medicine Endocrinology, Diabetes & Metabolism; Visit Provider Internal Medicine Endocrinology, Diabetes & Metabolism
DX: E11.65 Type 2 diabetes mellitus with hyperglycemia (principal); E11.22 Type 2 diabetes mellitus with diabetic chronic kidney disease; I12.9 Hypertensive chronic kidney disease with stage 1 through stage 4 chronic kidney disease, or unspecified chronic kidney disease; N18.9 Chronic kidney disease, unspecified; E55.9 Vitamin D deficiency, unspecified; Z91.199 Patient's noncompliance with other medical treatment and regimen due to unspecified reason
CPT/HCPCS: 36415; 80053; 80061; 82043; 82570; 83036; 84439; 84443; 84481

== ENCOUNTER → 2025-04-19 | Outpatient (CLI) | payer MEDICARE, SELFPAY ==
--- NOTE | 2025-04-19 15:01 | BI_ITS ---
EXAM: SCREENING MAMM (CAD), BILAT DATE: 04/19/2025 CLINICAL HISTORY: F, Age 79 y/o , SCREENING TECHNIQUE: Procedure Code: [id number] Modality: MG Procedure: SCREENING MAMM (CAD), BILAT COMPARISON: Prior exam(s) dated 11/25/2022, 01/25/2021, 11/12/2018. FINDINGS: TISSUE DENSITY: The breasts are heterogeneously dense, which may obscure small masses. The mammogram demonstrates that the patient has dense breasts. Supplemental screening with whole breast ultrasound or MRI may be considered for further evaluation. Bilateral Breast Mammographic Findings: No significant masses, calcifications or other abnormalities are identified. BI/SCREENING MAMM (CAD), BILAT IMPRESSION: There is no mammographic evidence of malignancy. OVERALL FINAL ASSESSMENT BI-RADS 1: NEGATIVE. RECOMMENDATION: Routine annual follow-up in 1 Year A letter with findings and recommendations will be mailed to the patient. Reading Location: [id number]
--- NOTE | 2025-04-19 15:05 | BD_ITS ---
PROCEDURE: DEXA BONE DENSITY STUDY 04/19/2025 REASON FOR EXAM: F, age 79 y/o . Postmenopausal. TECHNIQUE: Procedure Code: BDDBD Modality: DX Procedure: DEXA BONE DENSITY STUDY COMPARISON: None FINDINGS: BMD and T-SCORES Lumbar spine: 1.179 g/cm2, T-score 1.3 Levels: L1 through L4 Left femoral neck: 0.863 g/cm2, T-score 0.1 Femoral neck comparison data not recommended for monitoring change. Left total hip: 0.865 g/cm2, T-score -0.6 Right femoral neck: 0.773 g/cm2, T-score -0.7 Femoral neck comparison data not recommended for monitoring change. Right total hip: 0.834 g/cm2, T-score -0.9 The World Health Organization has defined the following categories based on bone density: Normal bone density: T-score equal to or greater than -1.0 Osteopenia: T-score between -1.0 and -2.5 Osteoporosis: T-score equal to or less than -2.5 FRAX (or Comparable) Fracture Risk Assessment: 10 Year Probability of Fracture: Major Osteoporotic Fracture: 9.7% Hip Fracture: 1.9% (Note: FRAX is not to be reported in setting of normal range bone density, osteoporosis on DEXA, known history of osteoporosis, prior osteoporotic hip or vertebral fracture, or for any patient undergoing pharmacological treatment for bone loss.) The National Osteoporosis Foundation (NOF) recommends pharmacological treatment for patients with a FRAX 10-year risk of 3% or higher for a hip fracture, or 20% or higher for a major osteoporotic fracture, to prevent osteoporosis and reduce fracture risk. The patient does not meet the pharmacological treatment recommendations for prevention of osteoporosis. BD/Dexa Bone Density Study IMPRESSION: NORMAL T-SCORES. Recommend follow-up as clinically warranted. Reading Location: [place] [id number]
== END | disposition home or self-care (01) ==
LOC: OPBD 15:00
PROVIDERS: PCP Family Medicine; Referring Provider Nurse Practitioner Family; Visit Provider Nurse Practitioner Family
DX: Z12.31 Encounter for screening mammogram for malignant neoplasm of breast (principal); Z78.0 Asymptomatic menopausal state
CPT/HCPCS: 77067; 77080

== ENCOUNTER → 2025-06-28 | Outpatient (CLI) | payer MEDICARE, SELFPAY ==
[2025-06-28 12:33] LABS: Hematocrit 38.5 % (37-47); Hemoglobin 12.3 g/dL (12.0-15.0); Mean Corp Hgb Conc 31.9 g/dL (32-36); Mean Corpuscular Volume 90.6 fL (81-99); Mean Platelet Vol. 11.2 fl (6.2-12.0); Platelet Count 285 K/mm3 (150-450); RBC Distribution Width CV 12.6 % (11.6-14.6); RBC Distribution Width SD 41.9 fl (35.1-43.9); Red Blood Count 4.25 M/mm3 (4.2-5.4); White Blood Count 7.7 K/mm3 (4.4-11.0)
[2025-06-28 13:01] LABS: Creatinine, Urine (random) 113.00 mg/dL (28.00-217.00); Microalbumin,Random Urine 197.0 mg/L (<20 mg/L)
[2025-06-28 13:26] LABS: AST(SGOT) 30 U/L (<=31); Alanine Aminotransfer ALT/SGPT 21 U/L (<=34); Albumin, Serum 4.1 g/dL (3.4-4.8); Alkaline Phosphatase 104 U/L (35-104); Anion Gap 11 (5-15); BUN 21 mg/dL (4-19); BUN/Creat Ratio 20.9 RATIO (10-20); Calcium,Total 9.7 mg/dL (7.6-11.0); Carbon Dioxide 26.0 mmol/L (21.0-32.0); Chloride 105 mmol/L (98-108); Globulin 3.0 g/dL (2.2-4.2); Glucose 85 mg/dL (70-99); Potassium 4.1 mmol/L (3.3-5.1); Vitamin D,25 Hydroxy 32.8 ng/mL (30-100)
== END | disposition home or self-care (01) ==
LOC: MTLAB 08:59
PROVIDERS: PCP Family Medicine; Referring Provider Internal Medicine Endocrinology, Diabetes & Metabolism; Visit Provider Internal Medicine Endocrinology, Diabetes & Metabolism
DX: E11.65 Type 2 diabetes mellitus with hyperglycemia (principal); E11.22 Type 2 diabetes mellitus with diabetic chronic kidney disease; I12.9 Hypertensive chronic kidney disease with stage 1 through stage 4 chronic kidney disease, or unspecified chronic kidney disease; N18.9 Chronic kidney disease, unspecified; E55.9 Vitamin D deficiency, unspecified; Z91.199 Patient's noncompliance with other medical treatment and regimen due to unspecified reason
CPT/HCPCS: 36415; 80053; 82043; 82306; 82570; 83036; 84443; 85027